=== PATIENT | female | born 1980 | race Hispanic/Latino ===

== ENCOUNTER 2017-08-31 09:40 | Emergency (ER) | payer SELFPAY ==
[~2017-08-31] VITALS: Ht 152.4 cm; Wt 66.2 kg
--- OUTSIDE RECORDS SUMMARY | 2017-08-31 09:43 | XMS REPORT | Clinical Summary ---
Author Author MARY [facility] Address Unknown Phone Unavailable Care Team Providers Care Plant Sprayer Name Role Phone PCP Unavailable Allergies Active Allergy Reactions Severity Noted Date Comments Morphine 09/27/2016 "Uncontrollable" Codeine Rash Low 09/27/2016 Current Medications Prescription Sig. Disp. Refills Start End Date Status Date VIT#96/FERROUS Take 1 tablet by mouth Active FUM/FA ( VITAMIN daily. W/IRON-FOLATE) 27 mg iron- 800 mcg Tab fluticasone-salmeterol Inhale 1 puff by mouth Active (ADVAIR) 100-50 mcg/dose via inhaler every 12 diskus inhaler (twelve) hours. cetirizine (ZYRTEC) 10 MG Take 10 mg by mouth Active tablet daily. CICLESONIDE (ZETONNA by Nasal route. Active NASAL) azithromycin (ZITHROMAX) Take 5 mLs (100 mg total) 15 mL 0 09/28/19 10/03/19 100 mg/5 mL suspension by mouth daily for 5 17 17 days. Active Problems Currently Estimated Date of Delivery Comments Yes 02/06/2017 No additional problems on file Encounters Date Type Specialty Care Team Description 09/27/2016 Emergency Emergency Medicine Simon Chery MD Coughing ( Primary Dx);Dyspnea and respiratory abnormality;Other chest pain;21 weeks gestation of after 08/30/2016 Social History Tobacco Use Types Packs/Day Years Used Date Never Smoker Alcohol Use Drinks/Week oz/Week Comments No Currently Estimated Date of Delivery Comments Yes 02/06/2017 Sex Assigned at Date Recorded Not on file Last Filed Vital Signs Vital Sign Reading Time Taken Blood Pressure 112/69 09/27/2016 9:35 AM CDT Pulse 100 09/27/2016 9:35 AM CDT Temperature 36.6 C (97.9 F) 09/27/2016 8:10 AM CDT Respiratory Rate 20 09/27/2016 8:10 AM CDT Oxygen Saturation 97% 09/27/2016 9:35 AM CDT Inhaled Oxygen - - Concentration Weight 61.7 kg (136 lb) 09/27/2016 8:10 AM CDT Height 152.4 cm (5') 09/27/2016 8:10 AM CDT Body Mass Index 26.56 09/27/2016 8:10 AM CDT Plan of Treatment Not on file Results * XR chest PA or AP 1 view in dept (09/27/2016 8:46 AM) Specimen Performing Laboratory GE RIS Narrative FINAL REPORT CLINICAL HISTORY: COUGH CHEST PRESSURE WHEEZING TECHNIQUE: 1 view of the chest COMPARISON: 11/02/2006 IMPRESSION: There are no focal infiltrates or pleural effusions. The cardiomediastinal silhouette is within normal limits for size. The visualized bones are intact. Signed: Hansel Guidry MD Report Verified Date/Time:09/27/2016 09:16:59 Reading Location: [facility] Radiology Reading Room Procedure Note Interface, External Ris In - 09/27/2016 9:19 AM CDT FINAL REPORT CLINICAL HISTORY: COUGH CHEST PRESSURE WHEEZING TECHNIQUE: 1 view of the chest COMPARISON: 11/02/2006 IMPRESSION: There are no focal infiltrates or pleural effusions. The cardiomediastinal silhouette is within normal limits for size. The visualized bones are intact. Signed: Hansel Guidry MD Report Verified Date/Time: 09/27/2016 09:16:59 Reading Location: [facility] Radiology Reading Room after 08/30/2016
--- OUTSIDE RECORDS SUMMARY | 2017-08-31 09:43 | XMS REPORT ---
Author [facility] Address Unknown Phone Unavailable Care Team Providers Care Careers Adviser Name Role Phone Unavailable Unavailable Problems This patient has no known problems. Allergies, Adverse Reactions, Alerts This patient has no known allergies or adverse reactions. Medications This patient has no known medications. Encounters Start Date/Time End Date/Time Encounter Type Admission Type Attending [facility] Care Department Encounter ID 2017-10-18 00:00:00 2017-10-18 00:00:00 Outpatient [facility] [id number] 2017-10-18 00:00:00 2017-10-18 00:00:00 Outpatient [facility] [id number] 2017-08-24 00:00:00 2017-08-24 00:00:00 Outpatient [facility] [id number] 2017-07-25 09:37:45 2017-07-25 09:37:45 Outpatient [facility] [id number] 2017-06-30 00:00:00 2017-06-30 00:00:00 Outpatient [facility] [id number] 2017-06-17 10:19:36 2017-06-17 10:19:36 Outpatient [facility] [id number] 2017-05-17 09:57:51 2017-05-17 09:57:51 Outpatient [facility] [id number] 2017-03-31 15:07:35 2017-03-31 15:07:35 Outpatient [facility] [id number] 2017-03-21 14:06:47 2017-03-21 14:06:47 Outpatient [facility] [id number] 2017-03-21 11:27:59 2017-03-21 11:27:59 Outpatient [facility] [id number] 2017-03-21 10:25:46 2017-03-21 10:25:46 Outpatient [facility] [id number] 2016-11-18 09:13:57 2016-11-18 09:13:57 Outpatient [facility] [id number] 2016-10-19 00:00:00 2016-10-19 00:00:00 Outpatient [facility] [id number] 2016-10-05 00:00:00 2016-10-05 00:00:00 Outpatient [facility] [id number] 2016-09-24 08:37:12 2016-09-24 08:37:12 Outpatient [facility] [id number] 2016-09-23 00:00:00 2016-09-23 00:00:00 Outpatient [facility] [id number] 2016-09-14 10:50:10 2016-09-14 10:50:10 Outpatient [facility] [id number] 2016-09-09 14:50:18 2016-09-09 14:50:18 Outpatient [facility] [id number]
[2017-08-31] MEDS ORDERED: IPRATROPIUM BROMIDE 0.02% 2.5 ML NEB NEB STA (09:55)
[2017-08-31] MEDS ORDERED: ALBUTEROL SULF 0.083% NEB SOLN 3 ML NEB NEB STA (09:55)
[2017-08-31] MEDS ORDERED: DEXAMETHASONE SOD PHOS 10 MG/1 ML VIAL INJ ONE (10:00)
[2017-08-31 10:17] LABS: BASOPHILS % 0.3 % (0.0-1.0); EOSINOPHILS # (AUTO) 0.2 (0.0-0.4); EOSINOPHILS % 2.1 % (0.0-6.0); HEMATOCRIT 36.7 % (34.2-44.1); HEMOGLOBIN 12.2 g/dL (12.0-16.0); LYMPHOCYTES # (AUTO) 1.3 (1.0-3.2); LYMPHOCYTES % 13.3 % (18.0-39.1); MEAN CORPUSCULAR HEMOGLOBIN 27.8 pg (28-32); MEAN CORPUSCULAR HGB CONC 33.2 g/dL (31-35); MEAN CORPUSCULAR VOLUME 83.6 fL (81-99); MONOCYTES # (AUTO) 0.7 (0.2-0.8); MONOCYTES % 7.4 % (4.4-11.3); NEUTROPHILS # (AUTO) 7.2 (2.1-6.9); NEUTROPHILS % 76.5 % (38.7-80.0); PLATELET COUNT 489 x10e3/uL (140-360); RED BLOOD COUNT 4.39 x10e6/uL (3.6-5.1); RED CELL DISTRIBUTION WIDTH 13.9 % (11.7-14.4)
[2017-08-31 10:36] LABS: ALANINE AMINOTRANSFERASE 17 IU/L (0-55); ALBUMIN 4.1 g/dL (3.5-5.0); ALKALINE PHOSPHATASE 104 IU/L (40-150); ANION GAP 11.9 mmol/L (8-16); BLOOD UREA NITROGEN 9 mg/dL (7-26); BUN/CREATININE RATIO 13 (6-25); CALCIUM 10.1 mg/dL (8.4-10.2); CARBON DIOXIDE 26 mmol/L (22-29); CHLORIDE 106 mmol/L (98-107); EST GLOMERULAR FILTRATION RATE > 60 ML/MIN (60-); GLUCOSE 94 mg/dL (74-118); POTASSIUM 3.9 mmol/L (3.5-5.1); SODIUM 140 mmol/L (136-145)
[2017-08-31 10:36] LABS: CREATINE KINASE 155 IU/L (29-168)
--- NOTE | 2017-08-31 12:13 | Diagnostic Imaging Report ---
PROCEDURE: Frontal and lateral views of the chest. COMPARISON: None. INDICATIONS: ASTHMA ATTACK FINDINGS: Lines/tubes: None. Lungs: The lungs are well inflated and clear. There is no evidence of pneumonia or pulmonary edema. Pleura: There is no pleural effusion or pneumothorax. Heart and mediastinum: The heart and the mediastinum are normal. Bones: No acute bony abnormality. IMPRESSION: 1. No acute cardiopulmonary disease. Dictated by: Carmelo Iglesias M.D. on 08/31/2017 at 12:15 Electronically approved by: Carmelo Iglseias M.D. on 08/31/2017 at 12:15
== END 2017-08-31 12:40 | disposition home or self-care (01) ==
LOC: ER 09:40
DX: R06.00 Dyspnea, unspecified (principal); J45.30 Mild persistent asthma, uncomplicated
CPT/HCPCS: 36415; 71046; 80053; 82550; 82553; 84484; 84702; 85025; 85379; 93005; 94640; 99284; J1100

== ENCOUNTER 2018-12-11 11:24 | Emergency (ER) | payer OTHER ==
[~2018-12-11] VITALS: Ht 152.4 cm; Wt 66.2 kg
--- OUTSIDE RECORDS SUMMARY | 2018-12-11 11:28 | XMS REPORT | Clinical Summary ---
Author Author [facility] Address Unknown Phone Unavailable Care Team Providers Care Sales Apprentice Name Role Phone Cassia Kwong MD PCP Allergies Comments Active Allergy Reactions Severity Noted Date Codeine Hives Medium 09/13/2018 "get aggresgive." Morphine Other (See Medium 09/13/2018 Comments) Medications End Date Status Medication Sig Dispensed Refills Start Date 09/18/2018 keTOROlac (TORadol) 10 mg Take 1 tablet 20 tablet 0 tablet (10 mg total) 9 by mouth every 6 (six) hours as needed for moderate pain for up to 5 days. 09/18/2018 methylPREDNISolone follow 21 tablet 0 (MEDROL DOSEPAK) 4 mg package 9 tablet directions Active Problems Not on file Encounters Care Team Description Date Type Specialty Trevin Bunn MD Chest pain, unspecified type (Primary Dx) 09/13/2018 Emergency Emergency Medicine after 12/10/2017 Social History Date Tobacco Use Types Packs/Day Years Used Never Assessed Sex Assigned at Date Recorded Not on file Industry Job Start Date Occupation Not on file Not on file Not on file Travel End Travel History Travel Start No recent travel history available. Last Filed Vital Signs Reading Time Taken Comments Vital Sign 113/66 09/13/2018 10:39 PM CDT Blood Pressure 71 09/13/2018 10:39 PM CDT Pulse 36.9 C (98.5 F) 09/13/2018 6:28 PM CDT Temperature 17 09/13/2018 10:39 PM CDT Respiratory Rate 97% 09/13/2018 10:39 PM CDT Oxygen Saturation - - Inhaled Oxygen Concentration 67.6 kg (149 lb) 09/13/2018 6:29 PM CDT Weight 152.4 cm (5') 09/13/2018 6:29 PM CDT Height 29.1 09/13/2018 6:29 PM CDT Body Mass Index Plan of Treatment Health Maintenance Due Date Last Done Comments INFLUENZA VACCINE 11/23/2018 Procedures Comments Procedure Name Priority Date/Time Associated Diagnosis ECG ED PRELIMINARY Routine 09/13/2018 INTERPRETATION 10:10 PM CDT TROPONIN Routine 09/13/2018 6:40 PM CDT ESTIMATED GFR STAT 09/13/2018 6:40 PM CDT HCG QUALITATIVE, SERUM STAT 09/13/2018 SCREEN 6:40 PM CDT PROTHROMBIN TIME WITH INR STAT 09/13/2018 6:40 PM CDT PARTIAL THROMBOPLASTIN STAT 09/13/2018 TIME (PTT) 6:40 PM CDT B NATRIURETIC PEPTIDE STAT 09/13/2018 6:40 PM CDT COMPREHENSIVE METABOLIC STAT 09/13/2018 PANEL 6:40 PM CDT HC COMPLETE BLD COUNT STAT 09/13/2018 W/AUTO DIFF 6:40 PM CDT ECG 12-LEAD STAT 09/13/2018 6:33 PM CDT after 12/10/2017 Results * ECG ED Preliminary Interpretation - Not an Order (09/13/2018 10:10 PM CDT) Narrative Performed At Trevin Bunn MD 09/14/20184:34 AM ECG ED Preliminary Interpretation - Not an Order Performed by: Trevin Bunn MD Authorized by: Trevin Bunn MD ECG reviewed by ED Physician in the absence of a user experience analyst: yes Interpretation: Interpretation: normal Rate: ECG rate:68 ECG rate assessment: normal Rhythm: Rhythm: sinus rhythm Ectopy: Ectopy: none QRS: QRS axis:Normal QRS intervals:Normal Conduction: Conduction: normal ST segments: ST segments:Normal T waves: T waves: normal * Estimated GFR (09/13/2018 6:40 PM CDT) Estimated GFR >=90 mL/min/1.73 m2 [place] Comment: [facility] rpretation G1 >=90 Normal or high G2 60-89Mildly decreased [id number] Mildly to moderately decreased [id number] Moderately to severely decreased G4 15-29Severely decreased G5 <15Kidney failure The eGFR was calculated using the Chronic Kidney Disease Epidemiology Collaboration (CKD-EPI) equation. Interpretation is based on recommendations of the National Kidney Foundation-Kidney Disease Outcomes Quality Initiative (NKF-KDOQI) published in 2014. Specimen Plasma specimen Performing Organization Address [facility] Phone Number [address] [place] [address] PATH[address] * Troponin (09/13/2018 6:40 PM CDT) [facility] Troponin <0.006 0.000 - 0.040 ng/mL [place] Comment: [facility] changed methodology effective: 08/29/2018 at 10:00 am The new method has a 99th percentile cutoff of 0.040 ng/mL Specimen Plasma specimen Performing Organization Address [facility] Phone Number [address] [place] AND [address] * Partial thromboplastin time, activated (09/13/2018 6:40 PM CDT) [facility] PTT 30.5 23.0 - 36.0 sec [place] Comment: [facility] PTT therapeutic range for [facility] unfractionated heparin is 61.0-112.0 seconds which corresponds to Anti-Xa 0.3-0.7 U/ml. Specimen Blood Performing Organization Address [facility] Phone Number [address] [place] * Prothrombin time with INR (09/13/2018 6:40 PM CDT) [facility] Prothrombin 11.8 11.5 - 14.5 sec [facility] INR 0.9 [place] Comment: [facility] [employer] Normalized [facility] Ratio (INR) is a therapeutic monitoring tool for patients who are stable on oral anticoagulant therapy. An INR of 2.0-3.0 is suggested for deep vein thrombosis/pulmonary embolism. Specimen Blood Performing Organization Address City/[facility]/Zipcode Phone Number [address] [place] [address] PATHOLOGY AND GENOMIC MEDICINE [address] [place], [place] [id number] [place] [address] * CBC with platelet and differential (09/13/2018 6:40 PM CDT) WBC 10.49 4.50 - 11.00 k/uL [facility] RBC 3.84 (L) 4.20 - 5.50 m/uL [facility] HGB 10.3 (L) 12.0 - 16.0 g/dL [facility] HCT 33.2 (L) 37.0 - 47.0 % [facility] MCV 86.5 82.0 - 100.0 fL [facility] MCH 26.8 (L) 27.0 - 34.0 pg [facility] MCHC 31.0 31.0 - 37.0 g/dL [facility] RDW - SD 47.9 37.0 - 55.0 fL [facility] MPV 9.5 8.8 - 13.2 fL [facility] Platelet count 424 (H) 150 - 400 k/uL [facility] Nucleated RBC 0.00 /100 WBC [facility] Neutrophils 69.2 (H) 39.0 - 69.0 % [facility] Lymphocytes 19.6 (L) 25.0 - 45.0 % [facility] Monocytes 9.1 0.0 - 10.0 % [facility] Eosinophils 1.4 0.0 - 5.0 % [facility] Basophils 0.2 0.0 - 1.0 % [facility] Specimen Blood Performing Organization Address City/[facility]/Zipcode Phone Number [facility] DE[facility] [address] [place] [phone] PATHOLOGY AND GENOMIC MEDICINE [address] * hCG qualitative, serum screen (09/13/2018 6:40 PM CDT) Pathologist [facility] hCG Negative [facility] Specimen Blood Performing Organization Address City/[facility] Phone Number [facility] DE[facility] [address] [place] [address] PATHOLOGY AND GENOMIC MEDICINE [address] * B natriuretic peptide (09/13/2018 6:40 PM CDT) [facility] BNP 14 0 - 100 pg/mL [facility] Specimen Blood Performing Organization Address City/[facility] Phone Number [facility] [address] [place] [address] PATHOLOGY AND GENOMIC MEDICINE [address] * Comprehensive metabolic panel (09/13/2018 6:40 PM CDT) [facility] Sodium 137 135 - 148 mEq/L [facility] Potassium 4.4 3.5 - 5.0 mEq/L [facility] Chloride 104 98 - 112 mEq/L [facility] CO2 25 24 - 31 mEq/L [facility] Anion gap 8@ANIO 7 - 15 mEq/L [facility] BUN 12 6 - 20 mg/dL [facility] Creatinine 0.60 0.50 - 0.90 mg/dL [facility] Glucose 88 65 - 99 mg/dL [facility] Calcium 9.3 8.3 - 10.2 mg/dL [facility] Protein 7.7 6.3 - 8.3 g/dL [place] Comment: [facility] 4.6-7.0 g/dL 1 week 4.4-7.6 g/dL 7 months-1year 5.1-7.3 g/dL 1-2 years5.6-7 .5 g/dL >3 years6.0-8 .0 g/dL 18-150 6.3-8.3 g/dL Albumin 4.2 3.5 - 5.0 g/dL [facility] A/G ratio 1.2 0.7 - 3.8 [facility] Alkaline 110 (H) 35 - 104 U/L [place] phosphatase [facility] AST 13 10 - 35 U/L [facility] ALT 9 5 - 50 U/L [facility] Total bilirubin <0.2 0.0 - 1.2 mg/dL [facility] Specimen Plasma specimen Performing Organization Address City/[facility] Phone Number [facility] [place] [id number] [place] [address] [place] [address] PATHOLOGY AND GENOMIC MEDICINE [address] [place] [address] [facility] * ECG 12 lead (09/13/2018 6:33 PM CDT) Ventricular 68 [facility] rate Atrial rate 68 [facility] [place] interval 132 [facility] QRSD interval 76 [facility] QT interval 380 [facility] QTC interval 404 [facility] P axis 1 16 [facility] QRS axis 1 10 [facility] T wave axis 8 [facility] EKG impression Normal sinus rhythm-Normal [facility] ECG-No previous ECGs available- Specimen Narrative Performed At Performing Organization Address City/[facility] Phone Number [facility] MUSE [address] [place] [address] after 12/10/2017 Insurance Type Payer Benefit Subscriber ID Effective Phone Address Plan / Dates Group O [facility] MEDICAID [facility] xxxxxxxxx [id number] [facility] mandeep [facility] Advance Directives For more information, please contact: [phone] Patient Trapper Bird Explanation Type Date Recorded Advance Directives, 09/13/2018 6:24 PM Living Will and Medical Power of Business Center Representative
--- OUTSIDE RECORDS SUMMARY | 2018-12-11 11:28 | XMS REPORT | Clinical Summary ---
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 Name Role Phone Darci Figueroa MD PCP Allergies Comments Active Allergy Reactions Severity Noted Date Black Pepper Anaphylaxis, 10/29/2015 Itching Capsaicin Anaphylaxis 10/29/2015 Codeine 11/02/2014 Lorna Angioedema 10/29/2015 Morphine Other 03/04/2015 Paprika Hives, 10/29/2015 Itching disoriented Zafirlukast Cough, 06/05/2015 Anxiety Medications End Date Status Medication Sig Dispensed Refills Start Date Active calcipotriene (DOVONEX) Apply to 60 g 1 0.005 % topical affected area 6 creamIndications: Rash 2 times daily Active cetirizine (ZYRTEC) 10 mg Take 1 tablet 30 tablet 3 tabletIndications: Nose by mouth 7 congestion daily. Active albuterol (PROAIR HFA) 90 Inhale 2 20.1 g 3 mcg/actuation Puffs by 7 inhalerIndications: mouth 4 times Moderate persistent daily as asthma without needed for complication, Cough, Wheezing. Wheeze, Chest tightness Active PNV95/IRON FUM/FOLIC ACID Take by 0 ( OR) mouth. Active albuterol (VENTOLIN Inhale 2 6.7 g 3 HFA,PROVENTIL HFA,PROAIR Puffs by 7 HFA) 90 mcg/actuation mouth 4 times inhalerIndications: daily as Moderate persistent needed for asthma without Wheezing. complication Active fluticasone-salmeterol Inhale 1 Puff 180 Each 3 (ADVAIR DISKUS) 500-50 by mouth 2 7 mcg/dose diskus times daily. inhalerIndications: Moderate persistent asthma without complication Active cyclobenzaprine Take 1 tablet 30 tablet 2 (FLEXERIL) 10 mg by mouth 8 tabletIndications: Spasm nightly at of muscle, Upper back bedtime as pain, Cervical needed for spondylolysis Muscle Spasms. Active ibuprofen (MOTRIN) 800 mg Take 1 tablet 40 tablet 2 tabletIndications: Spasm by mouth 8 of muscle, Upper back every 8 hours pain, Cervical as needed for spondylolysis Pain. Active fluticasone-vilanterol Inhale by 30 Each 3 (BREO ELLIPTA) 200-25 mouth. 8 mcg/dose DsDvIndications: Moderate persistent asthmatic bronchitis with acute exacerbation, Severe persistent extrinsic asthma with acute exacerbation Active Levocetirizine (XYZAL) 5 Take 1 tablet 90 tablet 2 mg tabletIndications: by mouth 8 Seasonal allergic every rhinitis, unspecified evening. trigger Active cetirizine (ZYRTEC) 10 mg Take 1 tablet 90 tablet 3 tabletIndications: by mouth 8 Non-seasonal allergic daily. rhinitis due to fungal spores Active fluticasone (FLONASE) 50 Use 2 [place] 16 g 5 mcg/actuation nasal in each 8 sprayIndications: Acute nostril nonseasonal allergic daily.. rhinitis due to pollen Active pregabalin (LYRICA) 200 Take 200 mg 0 mg capsule by mouth 2 times daily. Active naproxen (NAPROSYN) 500 Take 1 tablet 20 tablet 0 mg tabletIndications: by mouth 2 9 Pain times daily as needed for Pain (with food). Active ARIPiprazole (ABILIFY) 5 Take 1 tablet 30 tablet 1 mg tabletIndications: by mouth 9 Moderate episode of daily. recurrent major depressive disorder Active DULoxetine (CYMBALTA) 30 Take 1 30 capsule 1 mg delayed release capsule by 9 capsuleIndications: mouth daily Moderate episode of For recurrent major depression, depressive disorder fibromyalgia. Active propranolol (INDERAL) 10 Take 1 tablet 60 tablet 1 mg tabletIndications: by mouth 3 9 Moderate episode of times daily. recurrent major depressive disorder 01/10/2018 Discontinued cetirizine (ZYRTEC) 10 mg Take 1 tablet 90 tablet 3 tabletIndications: by mouth 7 Non-seasonal allergic daily. rhinitis due to fungal spores 02/10/2018 Discontinued ciclesonide (ZETONNA) 37 Use 1 [place] 18.3 g 5 mcg/actuation nasal HFA in each 7 inhalerIndications: Acute nostril nonseasonal allergic daily. rhinitis due to pollen 12/16/2017 Discontinued hydrOXYzine (ATARAX) 50 Take 1 tablet 30 tablet 0 mg tabletIndications: by mouth at 8 Dysthymia, Other bedtime depression nightly. 12/16/2017 Discontinued citalopram (CELEXA) 20 mg Take 1 tablet 30 tablet 0 tabletIndications: by mouth 8 Dysthymia, Other daily. depression 12/23/2017 Discontinued sertraline (ZOLOFT) 50 mg Take 1/2 tab 14 tablet 0 tabletIndications: by mouth 8 Moderate episode of daily for one recurrent major week; then depressive disorder increase to 1 full tab daily.. 12/23/2017 Discontinued traZODone (DESYREL) 100 Take 1/2 to 1 14 tablet 0 mg tabletIndications: tab by mouth 8 Moderate episode of at bedtime recurrent major PRN insomnia. depressive disorder 01/13/2018 Discontinued traZODone (DESYREL) 100 Take 1/2 to 1 21 tablet 0 mg tabletIndications: tab by mouth 8 Moderate episode of at bedtime recurrent major PRN insomnia. depressive disorder 01/13/2018 Discontinued sertraline (ZOLOFT) 50 mg Take 1 tablet 21 tablet 0 tabletIndications: by mouth 8 Moderate episode of daily. recurrent major depressive disorder 01/25/2018 Discontinued sertraline (ZOLOFT) 50 mg Take 1 tablet 30 tablet 0 tabletIndications: by mouth 8 Moderate episode of daily. recurrent major depressive disorder 01/25/2018 Discontinued traZODone (DESYREL) 100 Take 1/2 to 1 30 tablet 0 mg tabletIndications: tablet by 8 Moderate episode of mouth at recurrent major bedtime as depressive disorder needed for insomnia. 01/25/2018 Discontinued ARIPiprazole (ABILIFY) 5 Take 1 tablet 30 tablet 1 mg tabletIndications: by mouth 8 Moderate episode of daily. recurrent major depressive disorder 02/28/2018 Discontinued ARIPiprazole (ABILIFY) 5 Take 1 tablet 30 tablet 0 mg tabletIndications: by mouth 8 Moderate episode of daily. recurrent major depressive disorder 02/28/2018 Discontinued sertraline (ZOLOFT) 50 mg Take 1 tablet 30 tablet 0 tabletIndications: by mouth 8 Moderate episode of daily. recurrent major depressive disorder 03/31/2018 Discontinued traZODone (DESYREL) 100 Take 1/2 to 1 30 tablet 0 mg tabletIndications: tablet by 8 Moderate episode of mouth at recurrent major bedtime as depressive disorder needed for insomnia. 02/14/2018 Discontinued ciclesonide (ZETONNA) 37 Use 1 [place] 18.3 g 5 mcg/actuation nasal HFA in each 8 inhalerIndications: Acute nostril nonseasonal allergic daily. rhinitis due to pollen 02/15/2018 Discontinued ciclesonide (ZETONNA) 37 Use 1 [place] 18.3 g 5 mcg/actuation nasal HFA in each 8 inhalerIndications: Acute nostril nonseasonal allergic daily. rhinitis due to pollen 03/31/2018 Discontinued ARIPiprazole (ABILIFY) 5 Take 1 tablet 30 tablet 2 mg tabletIndications: by mouth 8 Moderate episode of daily. recurrent major depressive disorder 03/31/2018 Discontinued sertraline (ZOLOFT) 50 mg Take 1 tablet 30 tablet 2 tabletIndications: by mouth 8 Moderate episode of daily. recurrent major depressive disorder 07/21/2018 Discontinued ARIPiprazole (ABILIFY) 5 Take 1 tablet 30 tablet 2 mg tabletIndications: by mouth 8 Moderate episode of daily. recurrent major depressive disorder 07/21/2018 Discontinued traZODone (DESYREL) 100 Take 1/2 to 1 30 tablet 0 mg tabletIndications: tablet by 8 Moderate episode of mouth at recurrent major bedtime as depressive disorder needed for insomnia. 11/17/2018 Discontinued DULoxetine (CYMBALTA) 30 Take 1 30 capsule 1 mg delayed release capsule by 8 capsuleIndications: mouth daily Moderate episode of For recurrent major depression, depressive disorder fibromyalgia. 10/13/2018 Discontinued traZODone (DESYREL) 100 Take 1/2 to 1 30 tablet 1 mg tabletIndications: tablet by 9 Moderate episode of mouth at recurrent major bedtime as depressive disorder needed for insomnia. 10/13/2018 Discontinued ARIPiprazole (ABILIFY) 5 Take 1 tablet 30 tablet 1 201 mg tabletIndications: by mouth 9 Moderate episode of daily. recurrent major depressive disorder 11/17/2018 Discontinued ARIPiprazole (ABILIFY) 5 Take 1 tablet 30 tablet 1 201 mg tabletIndications: by mouth 9 Moderate episode of daily. recurrent major depressive disorder 11/17/2018 Discontinued propranolol (INDERAL) 10 Take 1 tablet 60 tablet 1 mg tabletIndications: by mouth 3 9 Moderate episode of times daily. recurrent major depressive disorder 10/22/2018 Discontinued traMADol (ULTRAM) 50 mg Take 1 tablet 30 tablet 0 tabletIndications: Pain by mouth 9 every 6 hours as needed for Pain. Active Problems Problem Noted Date Alcohol use disorder, mild, in sustained remission 01/25/2018 Alcohol use disorder 10/06/2017 19 weeks gestation of 09/14/2016 Overview: Estimated Date of Delivery: 02/06/17 BY 16w Labs: Type/Scr Early RPR Rubella HBsAG Early HIV Sickle Scr Early H/H Early Plt UCx O +/- NR Non-immune Neg Neg 11.7/35.9 390 GC/Chl Pap Quad Scr 1 hr GTT 3rd RPR 3rd HIV 3rd H/H 3rd Plt GBS Neg/Neg ASCUS HR HPV + Neg NIPT neg TDaP: U/S: Dating U/S: 16w Anatomy U/S: 09/24/16 Plan: [ ] Glucola @ 24-28 weeks [ ] TDap and RPR @ 28-32 weeks [ ] 3rd TM counseling [ ] 3rd Trimester HIV, CBC, GBS LGSIL (low grade squamous intraepithelial dysplasia) 08/11/2016 Overview: HR HPV positive. Referred for colpo 08/24/2016 Per patient had colpo on 08/23 @ [facility] and no biopsies were taken. Was told it was "normal". Will need pp pap smear UTI in , antepartum 08/10/2016 Overview: 08/11/2016 treated. SUSSY next visit 08/24/2016 Still on antibiotics, UCx at next clinic visit 09/14/2016 SUSSY neg Elderly multigravida 07/29/2016 Overview: S/p genetic counseling. Declined amnio but desires NIPT once approved with Medicaid 08/24/2016 NIPT performed today, results pending 09/14/2016 NIPT neg Rubella non-immune status, antepartum 07/29/2016 Overview: MMR Asthma 07/29/2016 Overview: 07/29/2016 Advair twice daily and Abuterol prn. F/U with closely with pulmonology 08/11/2016 well controlled. Referred to [facility] for consultation 08/24/2016 Not compliant with treatment. Will restart advair twice daily. Has pulm appt 09/09/16 09/14/2016 Pulm appt 09/09: patient to continue advair twice daily. Also prescribed amoxicillin for pulmonary infection. Patient to continue cetirizine and zetonna for allergic rhinitis Dysthymia Depression Pain Encounters Care Team Description Date Type Specialty Ines Ospina MDD (major depressive disorder), recurrent episode, moderate (Primary Dx); Alcohol use disorder, moderate, dependence; Cocaine use disorder, mild, in early remission; History of marijuana use; Anxiety disorder, unspecified type 11/20/2018 Office Visit Psychology Rene Albetrs MD Moderate episode of recurrent major depressive disorder 11/17/2018 Office Visit Psychiatry Ines Ospina MDD (major depressive disorder), recurrent episode, moderate (Primary Dx); Alcohol use disorder, moderate, dependence; Cocaine use disorder, mild, in early remission; History of marijuana use; Anxiety disorder, unspecified type 10/30/2018 Office Visit Psychology 10/30/2018 Travel Lj Chaney, Physician Pain (Primary Dx) 10/22/2018 Emergency Emergency Medicine 10/22/2018 Travel Ines Ospina MDD (major depressive disorder), recurrent episode, moderate (Primary Dx); Alcohol use disorder, moderate, dependence; Cocaine use disorder, mild, in early remission; History of marijuana use 10/16/2018 Office Visit Psychology Rene Alberts MD Moderate episode of recurrent major depressive disorder 10/13/2018 Office Visit Psychiatry Ines Ospina MDD (major depressive disorder), recurrent episode, moderate (Primary Dx); Alcohol use disorder, moderate, dependence; History of cocaine abuse; History of marijuana use 10/09/2018 Office Visit Psychology 10/09/2018 Travel Ines Ospina MDD (major depressive disorder), recurrent episode, moderate (Primary Dx); Alcohol use disorder, moderate, dependence; History of cocaine use; History of marijuana use 10/02/2018 Office Visit Psychology Darci Figueroa III, MD Ines Ospina MDD (major depressive disorder), recurrent episode, moderate (Primary Dx); Alcohol use disorder, moderate, dependence; Cocaine use disorder, mild, in early remission, abuse; History of marijuana use 09/25/2018 Office Visit Psychology 09/25/2018 Travel Rene Alberts MD Moderate episode of recurrent major depressive disorder 09/16/2018 Refill Psychiatry Rene Alberts MD Moderate episode of recurrent major depressive disorder 07/21/2018 Office Visit Psychiatry 07/21/2018 Travel Buck Dominguezzmine Dysthymic disorder (Primary Dx) 04/10/2018 Office Visit Psychology 04/10/2018 Travel Rene Alberts MD Moderate episode of recurrent major depressive disorder (Primary Dx) 03/31/2018 Office Visit Psychiatry 03/31/2018 Travel Buck Dominguezzmine Dysthymia (Primary Dx) 03/27/2018 Office Visit Psychology 03/27/2018 Travel Darci Figueroa III, MD Moderate episode of recurrent major depressive disorder 02/28/2018 Refill [facility] Regi Dominguez Depression, unspecified depression type (Primary Dx); Alcohol use disorder, mild, in sustained remission 02/22/2018 Office Visit Psychology Darci Alfredo MD Acute nonseasonal allergic rhinitis due to pollen 02/15/2018 Refill Pulmonology Darci Alfredo MD Acute nonseasonal allergic rhinitis due to pollen 02/14/2018 Refill Pulmonology Darci Alfredo MD Acute nonseasonal allergic rhinitis due to pollen 02/10/2018 Refill Pulmonology Regi Dominguez Dysthymia (Primary Dx); Alcohol use disorder, mild, in sustained remission 02/08/2018 Office Visit Psychology Rene Alberts MD Depression, unspecified depression type (Primary Dx) 01/27/2018 Office Visit Psychiatry Regi Dominguez Dysthymia (Primary Dx); Alcohol use disorder, mild, in sustained remission 01/25/2018 Office Visit Psychology Rene Alberts MD Moderate episode of recurrent major depressive disorder 01/25/2018 Refill Psychiatry Rene Alberts MD Moderate episode of recurrent major depressive disorder 01/19/2018 Refill Psychiatry Darci Figueroa III, MD 01/13/2018 Hospital Lab Encounter Rene Alberts MD Moderate episode of recurrent major depressive disorder (Primary Dx) 01/13/2018 Office Visit Psychiatry Rene Alberts MD Moderate episode of recurrent major depressive disorder 01/13/2018 Orders Only Psychiatry Regi Dominguez Dysthymia (Primary Dx); Alcohol use disorder 01/11/2018 Office Visit Psychology Darci Alfredo MD Non-seasonal allergic rhinitis due to fungal spores 01/10/2018 Refill Pulmonology Regi Dominguez Dysthymia (Primary Dx); Alcohol use disorder 12/23/2017 Office Visit Psychology Rene Alberts MD Moderate episode of recurrent major depressive disorder 12/23/2017 Office Visit Psychiatry Darci Figueroa III, MD Moderate episode of recurrent major depressive disorder 12/16/2017 Hospital Lab Encounter Rene Alberts MD Moderate episode of recurrent major depressive disorder (Primary Dx) 12/16/2017 Office Visit Psychiatry after 12/10/2017 Immunizations Name Administration Dates Next Due Ceftriazone 1gm 03/04/2015 Injection Influenza Vaccine 03/17/2016, 04/04/2015 Influenza Vaccine, 03/21/2017 Seasonal, Injectable Pneumococcal 13-valent 06/05/2015 conj 0.5 mL injection Tdap (Tetanus Toxoid, 11/18/2016 Reduced Diphtheria Toxoid And Acellular Pertussis, Absorbed) Triamcinolone 40mg/ml Inj 09/09/2016, 09/18/2015 Family History Medical History Relation Name Comments Cancer Maternal colon Grandfather Heart Maternal Grandfather Arthritis Maternal Grandmother Hypertension Maternal Grandmother Diabetes Paternal Grandmother Relation Name Status Comments Brother Alive Brother Alive Father Alive Maternal Grandfather colon ca (Age 75) Maternal Grandmother Alive Mother Alive Paternal Grandfather kidney failure (Age 86) Paternal Grandmother DM complications (Age 64) Social History Date Tobacco Use Types Packs/Day Years Used Never Smoker Smokeless Tobacco: Never Used Tobacco Cessation: Counseling Given: No Drinks/Week oz/Week Comments Alcohol Use 0 Standard drinks or equivalent 0.0 occasionally but not while Yes Food Insecurity Answer Date Recorded Within the past 12 months, you worried that your Never true 11/24/2017 food would run out before you got money to buy more. Within the past 12 months, the food you bought Never true 11/24/2017 just didn't last and you didn't have money to get more. Sex Assigned at Date Recorded Not on file Industry Job Start Date Occupation Not on file Not on file Not on file Travel End Travel History Travel Start No recent travel history available. Last Filed Vital Signs Reading Time Taken Comments Vital Sign 120/78 11/17/2018 8:54 AM CDT Blood Pressure 75 11/17/2018 8:54 AM CDT Pulse 36.9 C (98.5 F) 11/17/2018 8:54 AM CDT Temperature 18 11/17/2018 8:54 AM CDT Respiratory Rate 97% 11/17/2018 8:54 AM CDT Oxygen Saturation - - Inhaled Oxygen Concentration 70.3 kg (155 lb) 11/17/2018 8:54 AM CDT Weight 152.4 cm (5') 11/17/2018 8:54 AM CDT Height 30.27 11/17/2018 8:54 AM CDT Body Mass Index Plan of Treatment Care Team Description Date Type Specialty Ines Ospina RESCHEDULED FROM CALL IN 12/18/2018 Office Visit Psychology Rene Alberts MD [address] [place] [address] [phone] return 12/29/2018 Office Visit Psychiatry Health Maintenance Due Date Last Done Comments Cervical Cancer Scrn (3 07/24/2017 07/24/2014 (Previously completed - Yrs) External) Goals Goal Patient Associated Recent Progress Patient-Stat Author Goal Type Problems ed? Eat Healthy Lifestyle No Jackie Cheung Procedures Comments Procedure Name Priority Date/Time Associated Diagnosis URINALYSIS STAT 10/22/2018 5:51 AM CDT CBC STAT 10/22/2018 5:51 AM CDT TEST STAT 10/22/2018 5:51 AM CDT URINALYSIS STAT 10/22/2018 5:51 AM CDT CBC/DIFF STAT 10/22/2018 5:51 AM CDT BMP POC Routine 10/22/2018 5:40 AM CDT FREE T4 Routine 01/13/2018 Moderate episode of 11:34 AM CDT recurrent major depressive disorder THYROID STIMULATING Routine 01/13/2018 Moderate episode of HORMONE (TSH) 11:34 AM CDT recurrent major depressive disorder GAMMA GLUTAMYL Routine 12/16/2017 Moderate episode of TRANSFERASE (GGT) 9:56 AM CDT recurrent major depressive disorder COMPREHENSIVE METABOLIC Routine 12/16/2017 Moderate episode of PANEL 9:56 AM CDT recurrent major depressive disorder THYROID STIMULATING Routine 12/16/2017 Moderate episode of HORMONE (TSH) 9:56 AM CDT recurrent major depressive disorder after 12/10/2017 Results * CBC (10/22/2018 5:51 AM CDT) WBC 10.4 4.5 - 11.0 K/uL [facility] RBC 4.20 4.20 - 5.40 M/uL [facility] Hemoglobin 11.0 (L) 12.0 - 16.0 g/dL [facility] Hematocrit 35.1 (L) 37.0 - 47.0 % [facility] MCV 83.6 82.0 - 92.0 fL [facility] MCH 26.2 (L) 27.0 - 32.0 pg [facility] MCHC 31.3 (L) 32.0 - 36.0 g/dL [facility] RDW 50.9 (H) 36.4 - 46.3 fL [facility] Platelet 436 (H) 150 - 400 K/uL [facility] Mean Platelet 9.8 9.4 - 12.4 fL [facility] Percent NRBC 0.0 % [facility] Neutrophil 67.2 34.0 - 70.0 % [facility] Lymphocyte 23.3 20.0 - 50.0 % [facility] Monocyte 7.7 5.0 - 12.0 % [facility] Eosinophil 0.6 (L) 0.7 - 5.0 % [facility] Basophil 0.2 0.1 - 1.2 % [facility] Pct Immat Gran 1.0 (H) 0.0 - 0.5 % [facility] Neutrophil, Abs 6.97 (H) 1.56 - 6.13 K/uL [facility] Lymphocyte, Abs 2.41 1.18 - 3.74 K/uL [facility] Monocyte, Abs 0.80 (H) 0.24 - 0.36 K/uL [facility] Eosinophil, Abs 0.06 0.04 - 0.36 K/uL [facility] Basophil, Abs 0.02 0.01 - 0.08 K/uL [facility] Absol Immat 0.10 (H) 0.00 - 0.03 K/uL [facility] Absolute 0.00 K/uL [facility] Specimen Blood Performing Organization Address [facility] [place] [facility] [address] [place] [address] * URINALYSIS (10/22/2018 5:51 AM CDT) Color Straw Colorless, Straw, [facility] Clarity Clear Clear [facility] Spec [place], 1.009 1.001 - 1.035 [facility] pH, Ur 6.0 5.0 - 8.0 [facility] Protein, Ur Negative Negative mg/dL [facility] Glucose, Ur Negative Negative mg/dL [facility] Ketone, Ur Negative Negative mg/dL [facility] Bilirubin, Ur Negative Negative mg/dL [facility] Nitrite, Ur Negative Negative [facility] Leukocyte Negative Negative mg/dL [facility] Blood, Ur 1+ (A) Negative mg/dL [facility] RBC 1 0 - 4 /HPF [facility] WBC 4 0 - 5 /HPF [facility] Epithelial Cell 2 (H) <=1 /HPF [facility] Urobilinogen, <1.0 <1.0 EU/dL [facility] Specimen Urine Performing Organization Address [facility] Phone Number [facility] [address] [place] [address] * TEST (10/22/2018 5:51 AM CDT) Negative Negative [facility] Specimen Urine Performing Organization Address [facility] Phone Number [facility] [address] [place] [address] * BMP POC (10/22/2018 5:40 AM CDT) Sodium POC 141 136 - 145 mmol/L [facility] Potassium POC 4.2 3.5 - 5.1 mmol/L [facility] Chloride POC 104 98 - 107 mmol/L [facility] TCO2 POC 27 21 - 32 mmol/L [facility] Urea Nitrogen 9 7 - 18 mg/dL [facility] Creatinine POC 1.0 0.6 - 1.3 mg/dL [facility] Glucose POC 107 (H) 74 - 106 mg/dL [facility] Ionized Calcium 1.12 (L) 1.15 - 1.29 mmol/L [facility] GFR, Estimated 73 (L) >=90 mL/min/1.73 m2 [facility] Hemoglobin POC 12.2 12 - 16 g/dL [facility] Hematocrit POC 36.0 (L) 37.0 - 47.0 % [facility] Specimen Blood, venous Performing Organization Address [facility] Phone Number [facility] [address] [place] [address] * TSH (01/13/2018 11:34 AM CDT) Only the most recent of 2 results within the time period is included. Pathologist [facility] TSH 1.18 0.57 - 3.74 uIU/mL [facility] 1 Specimen Blood Performing Organization Address [facility] Phone Number [facility] * FREE T4 (01/13/2018 11:34 AM CDT) Pathologist [facility] Free T4 0.81 0.61 - 1.18 ng/dl [facility] Comment: 1 females: 1st Trimester-0.52-1.10 ng/dL 2nd Trimester=0.45-0.99 ng/dL 3rd Trimester=0.48-0.95 ng/dL Specimen Blood Performing Organization Address [facility] [place] Number [facility] 1 * COMPREHENSIVE METABOLIC PANEL(DBIL NOT INCLUDED) (12/16/2017 9:56 AM CDT) Albumin 4.7 3.7 - 5.3 g/dL [facility] 1 Calcium 10.0 8.6 - 10.3 mg/dL [facility] 1 CO2 31 21 - 31 mmol/L [facility] 1 Chloride 102 98 - 107 mmol/L [facility] 1 Creatinine 0.70 0.6 - 1.2 mg/dL [facility] 1 Glucose 88 70 - 110 mg/dL [facility] 1 Alkaline 100 34 - 104 U/L [facility] Phosphatase, S 1 Potassium 4.0 3.5 - 5.1 mmol/L [facility] 1 Sodium 143 136 - 145 mmol/L [facility] 1 ALT 12 7 - 52 U/L [facility] 1 AST (SGOT) 13 13 - 39 U/L [facility] 1 BUN 13 7 - 25 mg/dL [facility] 1 Bilirubin, 0.4 0.2 - 1.2 mg/dL [facility] Total 1 Protein, Total, 7.7 6.0 - 8.3 g/dL [facility] Serum 1 GFR, Estimated >60 mL/min/1.73 m2 [facility] 1 eGFR If Africn >60 mL/min/1.73 m2 [facility] Am 1 Anion Gap 10 [facility] 1 Specimen Blood Performing Organization Address City/[facility]/Zipcode Phone Number [facility] 1 * GGT (12/16/2017 9:56 AM CDT) GGT 14 9 - 64 U/L [facility] 1 Specimen Blood Performing Organization Address City/State/Zipcode Phone Number [facility] 1 after 12/10/2017 Insurance Type Payer Benefit Subscriber ID Effective Phone Address Plan / Dates Group PROJECT REACH PROJECT xxxxxxxxxx 2017- [facility] xxxxxxxxx 2018- [phone] COMMUNITY Present [id number] [facility] [id number]
--- OUTSIDE RECORDS SUMMARY | 2018-12-11 11:29 | XMS REPORT | Clinical Summary ---
Author Author [facility] Address Unknown Phone Unavailable Care Team Providers Care Telecommunications Field Technician Name Role Phone Sharpless PCP Unavailable Allergies Comments Active Allergy Reactions Severity Noted Date Codeine Rash Low 09/27/2016 "Uncontrollable" Morphine 09/27/2016 Medications End Date Status Medication Sig Dispensed Refills Start Date Active VIT#96/FERROUS Take 1 tablet 0 FUM/FA ( VITAMIN by mouth W/IRON-FOLATE) 27 mg daily. iron- 800 mcg Tab Active fluticasone-salmeterol Inhale 1 puff 0 (ADVAIR) 100-50 mcg/dose by mouth via diskus inhaler inhaler every 12 (twelve) hours. Active cetirizine (ZYRTEC) 10 MG Take 10 mg by 0 tablet mouth daily. Active CICLESONIDE (ZETONNA by Nasal 0 NASAL) route. Active Problems Estimated Date of Delivery Comments Yes 02/06/2017 No additional problems on file Social History Date Tobacco Use Types Packs/Day Years Used Never Smoker Alcohol Use Drinks/Week oz/Week Comments No Estimated Date of Delivery Comments Yes 02/06/2017 Sex Assigned at Date Recorded Not on file Industry Job Start Date Occupation Not on file Not on file Not on file Travel End Travel History Travel Start No recent travel history available. Last Filed Vital Signs Not on file Plan of Treatment Not on file Results Not on fileafter 12/10/2017 Insurance Payer Benefit Subscriber ID Type Phone Address Plan / Group MEDICAID - MEDICAID [facility] xxxxxxxxx Medicaid CARE COMM STAR Contracted PLAN
--- NOTE | 2018-12-11 11:44 | NUR ---
seen in triage by PHOTOGRAPHIC PRINTER
== END 2018-12-11 11:45 | disposition home or self-care (01) ==
LOC: ER 11:24
DX: Z76.0 Encounter for issue of repeat prescription (principal); M79.7 Fibromyalgia
CPT/HCPCS: 99283

== ENCOUNTER → 2019-05-18 | Day surgery (SDC) | payer OTHER ==
[~2019-05-18] MED LIST: ABILIFY5 MG PO; BENTYL PO; CYMBALTA60 MG PO; FENTANYL CITRATE/PF 100MCG/2 ML INJ ONE; LYRICA225 MG PO; MIDAZOLAM HCL 2 MG/2 ML VIAL ONE; PROPOFOL IV EMULSION 10 MG/ML 20 ML VIAL ONE; SYMBICORT 16010.2 GM INH; TRAZODONE HCL50 MG PO
[2019-05-18 13:48] VITALS: BP 124/87
--- NOTE | 2019-05-18 18:52 | Operative Report ---
DATE OF PROCEDURE: 05/18/2019 SURGEON: Darwin Guy MD PROCEDURE: EGD with biopsies. INDICATIONS FOR EGD: Upper abdominal pain, nausea. MEDICATIONS: The patient was done under MAC, please see anesthesiologist's note. PROCEDURE IN DETAIL: With the patient in the left lateral decubitus position, a flexible fiberoptic Olympus gastroscope was introduced into the esophagus under direct visualization without any difficulty. There was some patchy erythema noted in distal esophagus. The scope was then advanced with ease into the stomach. Mucosa overlying the antrum and the body revealed some patchy intense erythema and rvbw-[id number]-glldlcry edema, and biopsies were obtained and sent to stain for H. pylori. Pylorus was of normal contour and shape, was intubated with ease and the scope was advanced all the way to the second portion of the duodenum. The scope was then withdrawn slowly, mucosa overlying the proximal second portion as well as the duodenal bulb were grossly unremarkable, biopsies were obtained to rule out sprue. The scope was then withdrawn back into the stomach and retroflexed, mucosa overlying the fundus and the cardia appeared to be within normal limits. The scope was then straightened out, it was subsequently withdrawn, and the patient tolerated the procedure well. IMPRESSION: 1. Mild distal esophagitis. 2. Gastritis, biopsied, biopsies sent to stain for Helicobacter pylori. 3. Rule out sprue. PLAN: Follow up histology. Initiate Protonix 40 mg 1 p.o. q.a.m. before meals. Darwin Guy MD [facility] /[id number] cc: Darci Alfredo MD
== END | disposition home or self-care (01) ==
LOC: OR 09:33
PROVIDERS: ATTEND Internal Medicine Gastroenterology
DX: K29.50 Unspecified chronic gastritis without bleeding (principal); K29.80 Duodenitis without bleeding; K20.9 Esophagitis, unspecified; K59.09 Other constipation; K86.1 Other chronic pancreatitis; M79.7 Fibromyalgia; J45.909 Unspecified asthma, uncomplicated; F41.9 Anxiety disorder, unspecified; Z88.6 Allergy status to analgesic agent; Z68.31 Body mass index [BMI] 31.0-31.9, adult; Z80.0 Family history of malignant neoplasm of digestive organs
CPT/HCPCS: 43239; 81025; J2250; J2704; J3010

== ENCOUNTER 2019-11-19 13:04 | Emergency (ER) | payer OTHER ==
[~2019-11-19] VITALS: Ht 152.4 cm; Wt 66.2 kg
[~2019-11-19 13:04] MED LIST changes: -FENTANYL CITRATE/PF 100MCG/2 ML INJ ONE; -MIDAZOLAM HCL 2 MG/2 ML VIAL ONE; -PROPOFOL IV EMULSION 10 MG/ML 20 ML VIAL ONE
[2019-11-19] MEDS ORDERED: KETOROLAC TROMETHAMINE 30 MG/ML VIAL IM STA (13:39)
[2019-11-19] MEDS ORDERED: CYCLOBENZAPRINE HCL 10 MG TAB PO ONE (13:45)
--- NOTE | 2019-11-19 13:58 | Emergency Department Note ---
History of Present Illnes History of Present Illness Chief Complaint: General Medicine Complaints History of Present Illness This is a 38 year old female Chief Complaint Comment BODY ACHES ALL OVER. STATES FLARE UP FOR HER FIBROMYALGIA. PT IN NO NOTED DISTRESS. AAOX4. AMBULATORY. SEEN IN TRIAGE BY . Historian: Patient Arrival Mode: Car Onset (how long ago): day(s) (2) Location: ALL OVER Quality: DULL Radiation: Denies non-radiation, Denies back, Denies neck, Denies extremity, Denies abdomen, Denies periumbilical, Denies flank, Denies proximal, Denies distal, Denies other Severity: mild Onset quality: gradual Timing of current episode: constant Progression: waxing and waning Chronicity: new Context: Denies recent illness, Denies recent surgery, Denies recent immobilization, Denies recent travel, Denies trauma/injury, Denies new medications, Denies hx of DVT/PE, Denies non-compliance w/ medications, Denies other Relieving factors: none Exacerbating factors: none Associated symptoms: Reports denies other symptoms Treatments prior to arrival: none Past Medical/Family History Physician Review I have reviewed the patient's past medical and family history. Any updates have been documented here. Past Medical History Recent Fever: No Clinical Suspicion of Infectio: No New/Unexplained Change in Ment: No Past Medical History: Asthma Other Medical History: PANCREATITIS fibromyaglia Past Surgical History: Cholecysctectomy Social History Smoking Cessation: Never Smoker Alcohol Use: Social Other Last Tetanus: UNKNOWN Review of Systems Review of Systems Constitutional: Reports no symptoms EENTM: Reports no symptoms Cardiovascular: Reports no symptoms Respiratory: Reports no symptoms Gastrointestinal: Reports no symptoms Genitourinary: Reports no symptoms Musculoskeletal: Reports no symptoms Integumentary: Reports no symptoms Neurological: Reports no symptoms Psychological: Reports no symptoms Endocrine: Reports no symptoms Hematological/Lymphatic: Reports no symptoms Physical Exam Related Data Allergies: Coded Allergies: codeine (Verified Allergy, Unknown, HIVES, 05/17/19) morphine (Verified Allergy, Unknown, COMBATIVE, 05/17/19) Triage Vital Signs Vital Signs Date Time Temp Pulse Resp B/P (MAP) Pulse Ox O2 Delivery O2 Flow Rate FiO2 11/19/19 13:27 97.1 98 14 121/66 100 Room Air Vital signs reviewed: Yes Physical Exam CONSTITUTIONAL Constitutional: Present well-developed, Present well-nourished HENT HENT: Present normocephalic, Present atraumatic, Present oropharynx clear/moist, Present nose normal HENT L/R: Present left ext ear normal, Present right ext ear normal EYES Eyes: Reports PERRL, Reports conjunctivae normal NECK Neck: Present ROM normal PULMONARY Pulmonary: Present effort normal, Present breath sounds normal CARDIOVASCULAR Cardiovascular: Present regular rhythm, Present heart sounds normal, Present capillary refill normal, Present normal rate GASTROINTESTINAL Abdominal: Present soft, Present nontender, Present bowel sounds normal GENITOURINARY Genitourinary: Present exam deferred SKIN Skin: Present warm, Present dry MUSCULOSKELETAL Musculoskeletal: Present ROM normal NEUROLOGICAL Neurological: Present alert, Present oriented x 3, Present no gross motor or sensory deficits PSYCHOLOGICAL Psychological: Present mood/affect normal, Present judgement normal Assessment & Plan Medical Decision Making [facility] FIBROMYALGIA Reassessment Reassessment SAME Assessment & Plan Final Impression: (1) Generalized pain (2) Fibromyalgia Last Vital Signs Date Time Temp Pulse Resp B/P (MAP) Pulse Ox O2 Delivery O2 Flow Rate FiO2 11/19/19 13:27 97.1 98 14 121/66 100 Room Air Home Meds Reported Medications [Bentyl] No Conflict Check, 10 MG PO Q8HPRN 05/17/19 Budesonide/Formoterol Fumarate (SYMBICORT 160-4.5 MCG INHALER) 10.2 Gm Hfa.aer.ad, INH BID 05/17/19 Aripiprazole (ABILIFY) 5 Mg Tablet, 5 MG PO DAILY, #30 TAB 05/17/19 Trazodone Hcl (TRAZODONE HCL) 50 Mg Tablet, 50 MG PO DAILY, #30 TAB 05/17/19 Duloxetine Hcl (CYMBALTA) 60 Mg Capsule.dr, 60 MG PO DAILY 05/17/19 Pregabalin (LYRICA) 225 Mg Capsule, 450 MG PO BID 05/17/19 Medications in the ED Ketorolac Tromethamine 30 mg ONCE STAT IM ; Start 11/19/19 at 13:39; Stop 11/19/19 at 13:50; Status DC Cyclobenzaprine HCl 10 mg ONCE ONCE PO ; Start 11/19/19 at 13:45; Stop 11/19/19 at 13:50; Status DC ALMA MANDUJANO MD Nov 19, 2019 13:58
== END 2019-11-19 14:26 | disposition home or self-care (01) ==
LOC: ER 13:30
DX: R52 Pain, unspecified (principal); M79.7 Fibromyalgia; J45.909 Unspecified asthma, uncomplicated
CPT/HCPCS: 99283

== ENCOUNTER 2020-02-25 23:30 | Observation (INO) | payer OTHER ==
[~2020-02-25] VITALS: Ht 152.4 cm; Wt 72.6 kg
--- NOTE | 2020-02-25 23:35 | Emergency Department Note ---
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 Any updates have been documented here. Past Medical History Recent Fever: Yes Clinical Suspicion of Infectio: Yes New/Unexplained Change in Ment: No Past Medical History: Asthma Other Medical History: PANCREATITIS fibromyaglia Past Surgical History: Cholecysctectomy Social History Smoking Cessation: Never Smoker Alcohol Use: None Any Illegal Drug Use: No Other Last Tetanus: UNKNOWN Review of Systems Review of Systems Constitutional: Reports no symptoms EENTM: Reports no symptoms Cardiovascular: Reports chest pain, Reports palpitations Respiratory: Reports dyspnea Gastrointestinal: Reports no symptoms Genitourinary: Reports no symptoms Musculoskeletal: Reports no symptoms Integumentary: Reports no symptoms Neurological: Reports no symptoms Psychological: Reports no symptoms Endocrine: Reports no symptoms Hematological/Lymphatic: Reports no symptoms Physical Exam Related Data Allergies: Coded Allergies: codeine (Verified Allergy, Unknown, HIVES, 05/17/19) morphine (Verified Allergy, Unknown, COMBATIVE, 05/17/19) Vital signs reviewed: Yes Physical Exam CONSTITUTIONAL Constitutional: Present well-developed, Present well-nourished, Present ill appearing HENT HENT: Present normocephalic, Present atraumatic, Present oropharynx clear/anthony st, Present nose normal HENT L/R: Present left ext ear normal, Present right ext ear normal EYES Eyes: Reports PERRL, Reports conjunctivae normal NECK Neck: Present ROM normal PULMONARY Pulmonary: Present breath sounds normal, Present other (tachypnea) CARDIOVASCULAR Cardiovascular: Present heart sounds normal, Present capillary refill normal, Present normal rate, Present tachycardia GASTROINTESTINAL Abdominal: Present soft, Present nontender, Present bowel sounds normal GENITOURINARY Genitourinary: Present exam deferred SKIN Skin: Present warm, Present dry MUSCULOSKELETAL Musculoskeletal: Present ROM normal NEUROLOGICAL Neurological: Present alert, Present oriented x 3, Present no gross motor or sensory deficits PSYCHOLOGICAL Psychological: Present mood/affect normal, Present judgement normal Results Laboratory Lab results reviewed: Yes Laboratory comments Laboratory Tests Test 02/26/20 12:00 02/26/20 09:54 02/26/20 05:50 Creatine Kinase 53 IU/L (29-168) Creatine Kinase MB 0.50 ng/mL (0-5.0) Troponin I 0.010 ng/mL (0-0.300) Coronavirus (PCR) Not detected (NOTDETECTED) Imaging Imaging results reviewed: Yes Impressions [place] [address] Patient Name: CLAUDE CHRISTIAN MR #: [id number] : 1980 Age/Sex: 39/F Req #: [id number] Adm Physician: Ordered by: TAJ NOBLE DO Report #: [id number] Location: ER Room/Bed: Procedure: [id number] CT/CT CHEST W Exam Date: 02/26/20 Exam Time: 244 REPORT STATUS: Signed EXAM: CT Chest WITH contrast (PE Protocol) INDICATION: ^Y ^CP ^[id number] ^[id number] COMPARISON: Same day chest x-ray TECHNIQUE: Chest was scanned utilizing a multidetector helical scanner from the lung apex through the level of the diaphragm after administration of IV contrast. Thin section reconstructions were obtained with special concentration on the pulmonary arteries. Coronal and sagittal reformations were obtained. Dose modulation, iterative reconstruction, and/or weight based adjustment of the mA/kV was utilized to reduce the radiation dose to as low as reasonably achievable. Pulmonary embolism protocol was performed. IV CONTRAST: 100 mL of Isovue-370 COMPLICATIONS: None RADIATION DOSE: Total DLP: 420.75 mGy*cm Estimated effective dose: (DLP x 0.014 x size factor) mSv CTDIvol has been reviewed. It is below the limits set by the Radiation Protocol Committee (RPC). FINDINGS: LINES/ TUBES: None. LUNGS AND AIRWAYS: No filling defect is identified within the pulmonary arteries to the segmental level. Right basilar linear opacity with traction bronchiectasis, likely due to scarring. Airways are normal. PLEURA: The pleural spaces are clear. HEART AND MEDIASTINUM: The thyroid gland is normal. No mediastinal, hilar or axillary lymphadenopathy. The heart is normal in size.. There is no pericardial effusion. . Main pulmonary artery measures 2.5 cm in diameter. UPPER ABDOMEN: Cholecystectomy. Mild central pneumobilia. BONES: The visualized bony thorax is within normal limits. SOFT TISSUES: Unremarkable. IMPRESSION: No pulmonary emboli. Signed by: Dr. Carmelo Iglesias MD on 02/26/2020 3:43 AM Dictated By: CARMELO IGLESIAS MD 2 Transcribed By: DAPHNE on 02/26/20342 COPY TO: TAJ NOBLE DO~ Procedures 12 Lead ECG Interpretation ECG Interpretation : ECG: ECG 1 Armature Rewinder: Interpreted by ED physician Date: Feb 25, 2020 Time: 23:49 Prior ECG tracings: reviewed Rhythm: sinus tachycardia Rate: tachycardia BPM: 105 ST segments normal: Yes T waves normal: No T waves flattening: V1-V6 Clinical Impression: non-specific ECG Assessment & Plan Medical Decision Making MDM Diff Dx : COVID-19 URI, URI, PNA, ACS, CHF , COPD, PE, asthma Assessment & Plan Final Impression: (1) Tachycardia (2) Acute dyspnea Depart Disposition: ADMITTED Home Meds Reported Medications Methotrexate Sodium (METHOTREXATE) 2.5 Mg Tablet, 2.5 MG PO DAILY PT TAKES 1 TAB DAILY ON TUESDAY TO TUESDAY AND TUESDAY TAKE 2 TABLETS. 02/26/20 Budesonide/Formoterol Fumarate (SYMBICORT 160-4.5 MCG INHALER) 10.2 Gm Hfa.aer.ad, INH BID 05/17/19 Aripiprazole (ABILIFY) 5 Mg Tablet, 5 MG PO DAILY, #30 TAB 05/17/19 Trazodone Hcl (TRAZODONE HCL) 50 Mg Tablet, 50 MG PO DAILY, #30 TAB 05/17/19 Duloxetine Hcl (CYMBALTA) 60 Mg Capsule.dr, 60 MG PO DAILY 05/17/19 Discontinued Reported Medications [Bentyl] No Conflict Check, 10 MG PO Q8HPRN 05/17/19 Pregabalin (LYRICA) 225 Mg Capsule, 450 MG PO BID 05/17/19 TAJ NOBLE DO Feb 25, 2020 23:35
[2020-02-25] MEDS ORDERED: ASPIRIN 81 MG CHEW TAB PO ONE (23:45)
[2020-02-26 00:20] LABS: BASOPHILS % 0.2 % (0.0-1.0); EOSINOPHILS # (AUTO) 0.2 (0.0-0.4); EOSINOPHILS % 1.9 % (0.0-6.0); HEMOGLOBIN 10.7 g/dL (12.0-16.0); LYMPHOCYTES # (AUTO) 2.4 (1.0-3.2); LYMPHOCYTES % 23.3 % (18.0-39.1); MEAN CORPUSCULAR HEMOGLOBIN 29.2 pg (28-32); MEAN CORPUSCULAR HGB CONC 33.4 g/dL (31-35); MEAN CORPUSCULAR VOLUME 87.4 fL (81-99); MONOCYTES # (AUTO) 0.6 (0.2-0.8); MONOCYTES % 5.7 % (4.4-11.3); NEUTROPHILS # (AUTO) 7.2 (2.1-6.9); NEUTROPHILS % 68.5 % (38.7-80.0); PLATELET COUNT 435 x10e3/uL (140-360); RED BLOOD COUNT 3.66 x10e6/uL (3.6-5.1); RED CELL DISTRIBUTION WIDTH 20.1 % (11.7-14.4)
[2020-02-26 00:39] LABS: ALANINE AMINOTRANSFERASE 18 IU/L (0-55); ALBUMIN 3.7 g/dL (3.5-5.0); ALBUMIN/GLOBULIN RATIO 1.1 (0.8-2.0); ALKALINE PHOSPHATASE 78 IU/L (40-150); ANION GAP 14.4 mmol/L (8-16); BLOOD UREA NITROGEN 6 mg/dL (7-26); BUN/CREATININE RATIO 8 (6-25); CALCIUM 8.9 mg/dL (8.4-10.2); CARBON DIOXIDE 23 mmol/L (22-29); CHLORIDE 105 mmol/L (98-107); CREATINE KINASE 50 IU/L (29-168); EST GLOMERULAR FILTRATION RATE > 60 ML/MIN (60-); GLUCOSE 171 mg/dL (74-118); POTASSIUM 3.4 mmol/L (3.5-5.1); SODIUM 139 mmol/L (136-145)
[2020-02-26] MEDS ORDERED: KETOROLAC TROMETHAMINE 30 MG/ML VIAL IV STA (00:59)
--- NOTE | 2020-02-26 01:07 | Diagnostic Imaging Report ---
EXAMINATION: CHEST SINGLE (PORTABLE) INDICATION: ^Y ^ERMD ORDER ^[id number] ^0025 ^Y COMPARISON: None FINDINGS: AP view TUBES and LINES: None. LUNGS: Lungs are well inflated. There is no evidence of pneumonia or pulmonary edema. PLEURA: No pleural effusion or pneumothorax. HEART AND MEDIASTINUM: The cardiomediastinal silhouette is unremarkable. BONES AND SOFT TISSUES: No acute osseous lesion. Soft tissues are unremarkable. UPPER ABDOMEN: No free air under the diaphragm. IMPRESSION: No acute thoracic abnormality. Signed by: Dr. Carmelo Iglesias MD on 02/26/2020 1:04 AM
[2020-02-26] MEDS ORDERED: LORAZEPAM INJ 2 MG/ML VIAL IV STA (01:11)
[2020-02-26] MEDS ORDERED: LORAZEPAM INJ 2 MG/ML VIAL ONE (01:20)
[2020-02-26] MEDS ORDERED: SODIUM CHLORIDE 0.9% 50ML 50 ML ONE (02:08)
[2020-02-26] MEDS ORDERED: IOPAMIDOL 370 MG/ML 200 ML INFUS..BTL INJ ONE (02:09)
[2020-02-26] MEDS ORDERED: METHYLPREDNISOLONE SOD SUCC 125 MG/2ML VIAL IV STA (03:34)
[2020-02-26] MEDS ORDERED: ALBUTEROL/IPRATROPIUM 3 ML NEB NEB ONE (03:45)
--- NOTE | 2020-02-26 03:46 | Diagnostic Imaging Report ---
EXAM: CT Chest WITH contrast (PE Protocol) INDICATION: ^Y ^CP ^[id number] ^[id number] COMPARISON: Same day chest x-ray TECHNIQUE: Chest was scanned utilizing a multidetector helical scanner from the lung apex through the level of the diaphragm after administration of IV contrast. Thin section reconstructions were obtained with special concentration on the pulmonary arteries. Coronal and sagittal reformations were obtained. Dose modulation, iterative reconstruction, and/or weight based adjustment of the mA/kV was utilized to reduce the radiation dose to as low as reasonably achievable. Pulmonary embolism protocol was performed. IV CONTRAST: 100 mL of Isovue-370 COMPLICATIONS: None RADIATION DOSE: Total DLP: 420.75 mGy*cm Estimated effective dose: (DLP x 0.014 x size factor) mSv CTDIvol has been reviewed. It is below the limits set by the Radiation Protocol Committee (RPC). FINDINGS: LINES/ TUBES: None. LUNGS AND AIRWAYS: No filling defect is identified within the pulmonary arteries to the segmental level. Right basilar linear opacity with traction bronchiectasis, likely due to scarring. Airways are normal. PLEURA: The pleural spaces are clear. HEART AND MEDIASTINUM: The thyroid gland is normal. No mediastinal, hilar or axillary lymphadenopathy. The heart is normal in size.. There is no pericardial effusion. . Main pulmonary artery measures 2.5 cm in diameter. UPPER ABDOMEN: Cholecystectomy. Mild central pneumobilia. BONES: The visualized bony thorax is within normal limits. SOFT TISSUES: Unremarkable. IMPRESSION: No pulmonary emboli. Signed by: Dr. Carmelo Iglesias MD on 02/26/2020 3:43 AM
[2020-02-26] MEDS ORDERED: ASPIRIN 81 MG CHEW TAB PO ONE (04:30)
--- NOTE | 2020-02-26 07:10 | NUR ---
Nursing report received from Travis CALDERA.
--- NOTE | 2020-02-26 08:20 | NUR ---
Pt reporting pain 8/10, to epigastric/midsternal chest pain. Pt sitting comfortable in bed in no acute distress. Pt ambulated back from with no difficulty. Paged Dr. Delaney Veliz paged regarding pain.
--- NOTE | 2020-02-26 09:07 | NUR ---
Called Dr. Veliz's office for a 2nd time, per staff pt is not currently a pt of Dr. Veliz. Notified current Dr. Guo. Kathleen medical records secretary checking to assist if pt admitted to wrong service by shon CARLOS.
--- NOTE | 2020-02-26 09:23 | NUR ---
Dr. Guo notified of HR of 123 and notified of pain levels.
--- NOTE | 2020-02-26 09:26 | NUR ---
Updated CN on current status of pt., this RN attempted to notify supervisors.
--- NOTE | 2020-02-26 09:39 | NUR ---
Called Dr. Blackwell regarding need for medication to control pain and HR of 123-124. Orders given by Dr. Blackwell to perform EKG, echo, and tramadol. Dr. Blackwell will place orders.
[2020-02-26] MEDS: TRAMADOL HCL 50 MG TAB PO PRN ×2 (10:05→17:01)
--- NOTE | 2020-02-26 10:10 | NUR ---
Pt medicated for pain and 12 lead ekg performed.
--- NOTE | 2020-02-26 10:11 | NUR ---
Attempted to Call report to Iram marcum, unable call d/t capacity problem. Awaiting return call.
--- NOTE | 2020-02-26 10:14 | NUR ---
Per Dr. Guo orders are being placed correctly by Dr. Vasquez.
--- NOTE | 2020-02-26 11:05 | NUR ---
Received call from Lab that Pts covid test is negative. Notified data warehouse specialist. CN notified that rm 181 assigned.
--- NOTE | 2020-02-26 11:12 | NUR ---
Called to notify Dr. Das of negative covid status.
--- NOTE | 2020-02-26 11:21 | NUR ---
Spoke to Dr. Das and provided report to MD regarding pt and notified of admission. He will come and see pt.
--- NOTE | 2020-02-26 11:57 | NUR ---
Nursing report given to Cordell CALDERA, awaiting approval to move pt to non-negative pressure room.
[2020-02-26 12:27] LABS: CREATINE KINASE MB 0.5 ng/mL (0-5.0)
--- NOTE | 2020-02-26 12:30 | NUR ---
PT ARRIVED FROM ER. PT IS AAOX4. EDUCATED PT ABOUT FALL PRECAUTIONS. PT VERBALIZED UNDERSTANDING. CALL LIGHT WITH IN EASY REACH. INSTRUCTED PT TO USE CALL LIGHT FOR ALL THE NEEDS. BED IS LOW AND LOCKED. SIDE RAILS X2. BED ALARM IS ON. PT DENIES NEEDS AT THIS TIME.
[2020-02-26 12:35] VITALS: BP 129/82
--- NOTE | 2020-02-26 12:36 | Consultation ---
DATE OF CONSULTATION: Pulmonary Critical Care Consultation. CHIEF COMPLAINT: Pain with inspiration. HISTORY OF PRESENT ILLNESS: The patient is a 39-year-old woman. She has a history of asthma and uses Symbicort on a regular basis. Over the past 1-2 weeks, she has noticed increased dyspnea with exertion. She also has pain on inspiration. She denies any fever. She is not having nausea or vomiting. PAST SURGICAL HISTORY: Status post cholecystectomy. PAST MEDICAL HISTORY: 1. History of gallstone pancreatitis. 2. Asthma. SOCIAL HISTORY: The patient has never been a smoker. She was a drinker previously, but is not actively drinking. She also denies being . ALLERGIES: THE PATIENT IS ALLERGIC TO CODEINE AND MORPHINE. FAMILY HISTORY: Noncontributory. REVIEW OF SYSTEMS: The patient is afebrile. She is not complaining of any headache. She has no neck pain. She is having some chest discomfort as noted above. She has no difficulty cough. She is not having any nausea or vomiting. She has no leg edema. PHYSICAL EXAMINATION: VITAL SIGNS: The patient is afebrile, blood pressure is 125/84, heart rate is 120 and the respiratory rate in the low 20s, saturation is 100% on 2 L. HEENT: Shows no facial swelling or erythema. LYMPHATIC: Shows no submandibular, cervical, or supraclavicular adenopathy. CARDIAC: Reveals regular rate and rhythm with normal S1, S2. LUNGS: Auscultation of lungs shows clear breath sounds bilaterally. There is no wheezing. ABDOMEN: Soft and nontender. There is no rebound or guarding. EXTREMITIES: Shows no leg edema or calf tenderness. There is no cyanosis or clubbing. SKIN: Shows no rashes. NEUROLOGICAL: Shows no focal abnormalities. LABORATORY DATA: BUN to creatinine ratio is 6 to 0.8. Potassium is 3.4. The other electrolytes are within normal limits. White blood cell count is 10.48, hemoglobin is 7.7, platelet count is 435. RADIOGRAPHIC DATA: Chest CT shows no evidence of pulmonary embolism. There is some scarring at the right base. IMPRESSION: 1. Pleuritic chest pain. 2. Dyspnea. 3. History of asthma. PLAN: 1. Await echocardiogram. 2. Continue tramadol as needed for pain. 3. Continue Symbicort twice a day as well as nebulizers p.r.n. MD KEN Sylvester/RANJEET /[id number]
[2020-02-26] MEDS ORDERED: METHOTREXATE2.5 MG PO (12:44)
--- NOTE | 2020-02-26 12:45 | NUR ---
NATALIA DORSEY AND REPORTED PT VITAL SIGNS HR 122 AND CHEST PAIN 10/02. NEW ORDERS RECEIVED.
--- NOTE | 2020-02-26 12:50 | NUR ---
PAGED DR. DE LA ROSA REGARDING NEW CONSULT.
[2020-02-26] MEDS: METOPROLOL TARTRATE 25 MG TAB PO SCH ×2 (13:05→22:12)
[2020-02-26] MEDS ORDERED: POTASSIUM CHLORIDE 20 MEQ TAB CR PO ONE (13:30)
[2020-02-26] MEDS ORDERED: LEVALBUTEROL HCL SOLN NEBU 0.63 MG/3 ML NEB INH PRN (14:30)
[2020-02-26 14:57] VITALS: BP 129/82
[2020-02-26 14:59] VITALS: BP 129/82
--- NOTE | 2020-02-26 15:47 | History and Physical ---
HISTORY OF PRESENT ILLNESS: The patient is a 39-year-old female who has a past medical history positive for asthma, came here because of shortness of breath and chest pain. She was diagnosed with asthma exacerbation, atypical chest pain, admitted to the hospital. REVIEW OF SYSTEMS: CARDIOVASCULAR: She had chest pain, which is pleuritic in nature, sharp. When ever she take a deep breath, it is increased in intensity, will radiate to her neck. RESPIRATORY: No shortness of breath. No cough. She did have some wheezing earlier on. GENITOURINARY: No frequency. No dysuria. GASTROINTESTINAL: No nausea, vomiting. She has had diarrhea. ALLERGIES: THE PATIENT IS ALLERGIC TO CODEINE AND MORPHINE. SOCIAL HISTORY: She does not smoke. She does not drink. PAST MEDICAL HISTORY: Positive. PHYSICAL EXAMINATION: HEART: Showed regular rhythm. Normal S1, S2 sound. LUNGS: Clear bilaterally. ABDOMEN: Soft. EXTREMITIES: Show no edema. VITAL SIGNS: Blood pressure 129/82, temperature 98.3 degree Fahrenheit, heart rate 132 per minute. LABORATORY DATA: On the blood work, we have a CBC; white count 10.4, hemoglobin 10.7, hematocrit 32.0, platelet count 435,000. On the BMP; sodium 139, potassium 3.4, chloride 105, CO2 of 23, BUN 6, creatinine 0.80, glucose 171, total bilirubin 0.3, and calcium 9.9. AST 21, ALT 18, alkaline phosphatase 78. CK 50, CK-MB 0.40, troponin is negative less than 10, total protein 7.2, albumin 3.7, globulin 3.5, albumin globulin ratio 1.1. CT of chest pain completely negative. IMPRESSION: 1. Atypical chest pain. 2. . 3. Acute diarrhea. 4. Sinus tachycardia. 5. Hypokalemia. TREATMENT AND PLAN: Replace potassium. Recheck potassium and magnesium level. Continue with metoprolol 25 mg twice a day because of tachycardia, which is a sinus tachycardia. Continue aspirin 81 mg daily, Symbicort two inhalation twice a day, metoprolol 25 mg twice a day, tramadol 50 mg q.6 hours as needed, trazodone 50 mg at nighttime, Xopenex q.4 hours as needed for shortness of breath. Dr. Blackwell has been consulted from the Pulmonary point of view. Dr. Crowder from Cardiology point of view. Echocardiogram has been ordered. Time spent 45 minutes. MD ANNABELLE Mendez/RANJEET /[id number]
[2020-02-26 15:52] VITALS: BP 103/65
[2020-02-26] MEDS: BUDESONIDE/FORMOTEROL 160/4.5MCG INHALER INH SCH (19:00)
--- NOTE | 2020-02-26 19:10 | NUR ---
BEDSIDE SHIFT REPORT GIVEN TO THE ETHICS INSTRUCTOR RN. PT DENIED FURTHER NEEDS.
[2020-02-26 20:00] VITALS: BP 111/73
[2020-02-26] MEDS: ARIPIPRAZOLE 5 MG TABLET PO SCH (20:41)
[2020-02-26] MEDS: DULOXETINE HCL 30 MG DELAYED RELEASE PO SCH (20:41)
[2020-02-26 21:20] VITALS: BP 111/73
[2020-02-26] MEDS: METHOTREXATE SOD 2.5 MG TAB PO SCH (21:37)
[2020-02-26] MEDS: TRAZODONE HCL 50 MG TAB PO PRN (22:12)
--- NOTE | 2020-02-26 23:19 | NUR ---
C/O ITCHING ALL OVER THE BODY.NOTIFIED MD AND RECEIVED NEW ORDERS.
[2020-02-26] MEDS: DIPHENHYDRAMINE HCL 25 MG CAP PO PRN (23:49)
[2020-02-27] VITALS (8 sets, daily range): BP systolic 91–103; BP diastolic 56–66
--- NOTE | 2020-02-27 01:38 | Consultation ---
DATE OF CONSULTATION: Cardiology Consultation Report REASON FOR CONSULTATION: Chest pain and tachycardia. CONSULTING PHYSICIAN: Davide Das MD. CHIEF COMPLAINT: Shortness of breath and chest pain. HISTORY OF PRESENT ILLNESS: This is a 39-year-old female with a past medical history of pancreatitis, cholelithiasis, fibromyalgia, gastritis and asthma who presented to the hospital on the setting with shortness of breath as well as chest pain and anxiety. The patient reports that approximately 1 week prior, she was feeling as if she was more congested and have shortness of breath, which she attributed this initially to allergies as well as sinus pressure. She reported that prior to this she had done well in terms of her asthma, but had needed to use her rescue inhaler more frequently. The patient called her primary care provider and there was concern coronavirus, however, the patient took a brief course of antibiotics for atypical organism coverage. However, despite this she continued to feel poorly as well as have some chest pain and a little bit of difficulty breathing. She also reports some secretions and congestion and the patient thus presented to the hospital for further evaluation. She also had significant sinus tachycardia, which improved. Upon speaking to her now, she reports that she felt quite anxious. She also has some mild shortness of breath and has some chest pain, which she states is worst when laying flat as well as better when sitting forward. The chest pain is also worse with deep inspiration. She says that the pain is located on the right side of the chest as well as in the center of the chest as well as with palpation. She also has fibromyalgia in which she has some of bouts of chest pain. Of note, the patient had an EGD done in April 2019, which had esophagitis and gastritis as well. PAST MEDICAL HISTORY: History of gallstone pancreatitis, history of asthma, history of esophagitis and gastritis, history of fibromyalgia, and history of anxiety. PAST SURGICAL HISTORY: As above, gallstone pancreatitis. FAMILY HISTORY: Maternal grandfather with early coronary artery atherosclerosis and myocardial infarction. SOCIAL HISTORY: She denies smoking, alcohol drinking. She is not . She lives with her parents and her daughter. ALLERGIES: ALLERGIC TO CODEINE AND MORPHINE. WITH CODEINE, SHE HAD HIVES AND WITH MORPHINE, SHE HAD HALLUCINATIONS AND AGITATION. HOME MEDICATIONS: Reviewed and include duloxetine 60 mg, methotrexate 2.5 mg, trazodone 50 mg, budesonide/formoterol 160/4.5 mcg, Abilify 5 mg. REVIEW OF SYSTEMS: SKIN: No rashes, no bruising. HEMATOLOGY: No bruising or bleeding. PSYCHIATRIC: Positive anxiety. No hallucinations. NEUROLOGIC: No focal motor weakness. Normal speech. CARDIOVASCULAR: Positive chest pain. Positive dyspnea with exertion. RESPIRATORY: Positive sputum. Positive shortness of breath. GI: Negative constipation. Negative diarrhea. GENITOURINARY: No frequency. No dysuria. Reproductive. No history of nonstop bleeding. No . PHYSICAL EXAMINATION: VITAL SIGNS: She was afebrile, temperature 98.3, pulse maximum 122; however, presently in the 80s, sinus on Telemetry. Blood pressure 129/82, respirations 18, SPO2 98, height 5 feet 0 inches, weight is 160 pounds. BMI 31.2. GENERAL: She is alert and oriented and without acute distress. HEENT: She is normocephalic, atraumatic. Moist mucous membranes. Normal conjunctivae. NECK: Some neck fullness. No JVD. Otherwise, supple with full range of motion. CARDIOVASCULAR: Regular rate and rhythm. No murmurs, rubs or gallops. LUNGS: No respiratory distress. No wheezes. Normal breath sounds. ABDOMEN: Soft, nontender, and nondistended. Positive bowel sounds. EXTREMITIES: No clubbing, cyanosis or edema. No bilateral upper as well as lower extremities. Intact distal pulses. Radial 2+ DP. SKIN: No rashes. No bruising. PSYCHIATRIC: Normal affect. Positive anxiety. NEUROLOGIC: Alert and oriented. Normal speech. No focal deficits. LABORATORY DATA: Sodium 139, potassium 3.4, chloride 105, bicarbonate 23, BUN 6 and creatinine 0.8, glucose 171. White blood cell count of 10.4, hemoglobin 10.7, hematocrit 33.0 and platelets 435. BMP is less than 10, HCG is negative. Troponin is negative x2 at 0.010 and 0.004. AST 21 and ALT 18. Total bilirubin 0.3, alkaline phosphatase 78. Coronavirus is negative. Chest x-rays were reviewed and were essentially unremarkable. Telemetry was reviewed with sinus tachycardia in the 120s; however, presently is at 80 with sinus tachycardia resolved and is now in normal sinus rhythm. CT PE protocol was reviewed with no significant pulmonary emboli identified and non-gated study with no calcification seen within the territory of the coronary arteries. IMPRESSION: Atypical chest forrester, asthma, sinus tachycardia, fibromyalgia, acute gastritis. TREATMENT AND PLAN: The patient has atypical features to her chest pain. Her chest pain is positional in nature as well as worse more with palpation and reproduced as such on examination. She has negative cardiac enzymes x2. Her echocardiogram is reviewed and read and essentially is overall unremarkable with just mild mitral regurgitation and normal EF 55% to 60%. She has no regional wall motion abnormalities and no cricoidal fusion visualized. Her baseline EKG has no significant ST depressions suggestive of pericarditis. It is most likely that her chest pain is noncardiac in nature as well as secondary to possible fibromyalgia, respiratory over gastritis. Due to her neck fullness we will obtain a TSH as well as due to the sinus tachycardia, which has not resolved. She is on metoprolol oral and is doing well. Continue current present therapy. We continue to follow along with you. Time spent > 90 min. with discussion and explanation and assurances MD ESTHER Robin/RANJEET /[id number]
--- NOTE | 2020-02-27 02:20 | NUR ---
RESTING NOW.CALL LIGHT WITHIN REACH.NO PAIN VOICED.ON O2 NC 2LITRE.TELE IS IN PLACE.STABLE CONDITION.
[2020-02-27 06:11] LABS: BASOPHILS % 0.1 % (0.0-1.0); EOSINOPHILS % 0.3 % (0.0-6.0); HEMATOCRIT 32.2 % (34.2-44.1); HEMOGLOBIN 10.2 g/dL (12.0-16.0); LYMPHOCYTES % 16.9 % (18.0-39.1); MEAN CORPUSCULAR HEMOGLOBIN 28.7 pg (28-32); MEAN CORPUSCULAR HGB CONC 31.7 g/dL (31-35); MEAN CORPUSCULAR VOLUME 90.7 fL (81-99); MONOCYTES # (AUTO) 0.8 (0.2-0.8); MONOCYTES % 7.2 % (4.4-11.3); NEUTROPHILS # (AUTO) 8.8 (2.1-6.9); NEUTROPHILS % 74.8 % (38.7-80.0); PLATELET COUNT 428 x10e3/uL (140-360); RED BLOOD COUNT 3.55 x10e6/uL (3.6-5.1); RED CELL DISTRIBUTION WIDTH 21.7 % (11.7-14.4)
[2020-02-27 06:38] LABS: ALANINE AMINOTRANSFERASE 16 IU/L (0-55); ALBUMIN 3.5 g/dL (3.5-5.0); ALKALINE PHOSPHATASE 65 IU/L (40-150); ANION GAP 13.4 mmol/L (8-16); BLOOD UREA NITROGEN 14 mg/dL (7-26); BUN/CREATININE RATIO 18 (6-25); CALCIUM 8.9 mg/dL (8.4-10.2); CARBON DIOXIDE 23 mmol/L (22-29); CHLORIDE 110 mmol/L (98-107); CREATINE KINASE 47 IU/L (29-168); EST GLOMERULAR FILTRATION RATE > 60 ML/MIN (60-); GLUCOSE 103 mg/dL (74-118); POTASSIUM 4.4 mmol/L (3.5-5.1); SODIUM 142 mmol/L (136-145)
--- NOTE | 2020-02-27 06:47 | NUR ---
Bed side shift report given to oncoming Rn.Stable condition.
--- NOTE | 2020-02-27 07:00 | NUR ---
BEDSIDE SHIFT REPORT RECEIVED FROM THE AGRICULTURAL ENGINEERING TECHNICIAN RN. EDUCATED PT ABOUT FALL PRECAUTIONS. PT VERBALIZED UNDERSTANDING. BED IS LOW AND LOCKED. SIDE RAILS X2. CALL LIGHT WITH IN EASY REACH. ALL SAFETY MEASURES IN PLACE. PT DENIES NEEDS AT THIS TIME.
--- NOTE | 2020-02-27 08:00 | NUR ---
PAGED PHARMACY REGARDING SYMBICORT.
[2020-02-27] MEDS: ASPIRIN 81 MG CHEW TAB PO SCH (08:20)
[2020-02-27] MEDS: TRAMADOL HCL 50 MG TAB PO PRN ×2 (08:20→18:37)
[2020-02-27] MEDS: BUDESONIDE/FORMOTEROL 160/4.5MCG INHALER INH SCH ×2 (09:00→20:05)
[2020-02-27] MEDS ORDERED: NON-FORMULARY MEDICATION (Duloxetine Hcl (Cymbalta) 60 MG) PO SCH (09:00)
[2020-02-27] MEDS ORDERED: NON-FORMULARY MEDICATION (Aripiprazole (Abilify) 5 MG) PO SCH (09:00)
[2020-02-27] MEDS: METOPROLOL TARTRATE 25 MG TAB PO SCH ×2 (09:25→20:56)
[2020-02-27] MEDS: IBUPROFEN 400 MG TAB PO PRN ×2 (11:30→20:49)
[2020-02-27] MEDS: LORAZEPAM 1 MG TAB PO PRN (11:30)
--- NOTE | 2020-02-27 15:42 | Progress Note ---
DATE: Internal Medicine Progress Note SUBJECTIVE: The patient is complaining of chest pain, which is very clearly musculoskeletal on palpation. Dr. Crowder saw the patient. From Cardiology point of view, there is no cardiac issue right now. White blood count was elevated. We are going to keep the patient until tomorrow. We are going to repeat a CBC tomorrow. PHYSICAL EXAMINATION: HEART: Showed regular rhythm. Normal S1 and S2 sound. LUNGS: Clear bilaterally. ABDOMEN: Soft. VITAL SIGNS: Blood pressure 97/57, temperature 97.9, heart rate 61 per minute, respiratory rate 18 per minute, and oxygen saturation 100%. LABORATORY DATA: On the CBC; white blood count 11.7, hemoglobin 10.2, hematocrit 32.2, and platelet count 428,000. On the BMP; sodium 142, potassium 4.4, chloride 110, CO2 23, BUN 14, creatinine 0.80, and glucose 103. FINAL IMPRESSION: 1. Asthma exacerbation. 2. Leukocytosis. 3. Very atypical chest pain, most likely costochondral. 4. History of rheumatoid arthritis. 5. History of fibromyalgia. PLAN OF TREATMENT: We are going to continue with oxygen. Continue with Abilify 5 mg daily, aspirin 81 mg daily, and Symbicort 2 inhalation twice a day. Continue Benadryl 25 mg q.6 hours as needed for itching, Cymbalta 60 mg daily, ibuprofen 800 mg q.8 hours as needed for pain, Xopenex q.4 hours as needed for shortness of breath, lorazepam 1 mg p.o. q.8 hours as needed for anxiety, methotrexate 2.5 mg p.o. daily, metoprolol 25 mg twice a day, tramadol 50 mg q.6 hours as needed, and Desyrel 50 mg at bedtime. MD ANNABELLE Mendez/RANJEET /[id number]
--- NOTE | 2020-02-27 19:06 | NUR ---
BEDSIDE SHIFT REPORT GIVEN TO THE LINEN SUPERVISOR RN. PT DENIED FURTHER NEEDS.
--- NOTE | 2020-02-27 19:14 | Progress Note ---
DATE: SUBJECTIVE: The patient has less chest pain. She is not complaining of dyspnea. She has no cough. PHYSICAL EXAMINATION: VITAL SIGNS: Blood pressure is 91/60, saturation is 100% on 2 L, and pulse is 65. HEENT: Shows no facial swelling or erythema. LYMPHATIC: Shows no submandibular, cervical, or supraclavicular adenopathy. CARDIAC: Reveals regular rate and rhythm with normal S1 and S2. LUNGS: Auscultation of lungs shows decreased breath sounds at the bases. There is no wheezing. ABDOMEN: Soft and nontender. There is no rebound or guarding. EXTREMITIES: Show no leg edema or calf tenderness. There is no cyanosis or clubbing. SKIN: Shows no rashes. NEUROLOGICAL: Shows no focal abnormalities. IMPRESSION: 1. Atypical chest pain. 2. History of asthma. PLAN: 1. Continue inhalers. 2. Tramadol as needed for pain. 3. Probable discharge home tomorrow. MD KEN Sylvester/RANJEET /[id number]
--- NOTE | 2020-02-27 20:10 | NUR ---
Assessment done.aaox4.ambulates.no resp.distress noted.call light within reach.instructed to call for assistance as needed.siderails x2 up.
[2020-02-27] MEDS: DIPHENHYDRAMINE HCL 25 MG CAP PO PRN (20:28)
[2020-02-27] MEDS: ARIPIPRAZOLE 5 MG TABLET PO SCH (20:45)
[2020-02-27] MEDS: DULOXETINE HCL 30 MG DELAYED RELEASE PO SCH (20:45)
[2020-02-27] MEDS: METHOTREXATE SOD 2.5 MG TAB PO SCH (20:58)
[2020-02-27] MEDS: TRAZODONE HCL 50 MG TAB PO PRN (20:58)
[2020-02-28] VITALS (9 sets, daily range): BP systolic 91–110; BP diastolic 61–78
[2020-02-28] MEDS: LORAZEPAM 1 MG TAB PO PRN ×2 (02:46→10:51)
[2020-02-28 06:02] LABS: BASOPHILS % 0.2 % (0.0-1.0); EOSINOPHILS # (AUTO) 0.2 (0.0-0.4); HEMATOCRIT 32.4 % (34.2-44.1); HEMOGLOBIN 10.2 g/dL (12.0-16.0); LYMPHOCYTES # (AUTO) 2.8 (1.0-3.2); LYMPHOCYTES % 29.8 % (18.0-39.1); MEAN CORPUSCULAR HGB CONC 31.5 g/dL (31-35); MONOCYTES # (AUTO) 0.6 (0.2-0.8); MONOCYTES % 6.7 % (4.4-11.3); NEUTROPHILS # (AUTO) 5.7 (2.1-6.9); NEUTROPHILS % 60.9 % (38.7-80.0); PLATELET COUNT 411 x10e3/uL (140-360); RED BLOOD COUNT 3.52 x10e6/uL (3.6-5.1); RED CELL DISTRIBUTION WIDTH 22.1 % (11.7-14.4)
--- NOTE | 2020-02-28 07:00 | NUR ---
BEDSIDE SHIFT REPORT RECEIVED FROM THE LICENSED MORTICIAN RN. EDUCATED PT ABOUT FALL PRECAUTIONS. PT VERBALIZED UNDERSTANDING. CALL LIGHT WITH IN EASY REACH. INSTRUCTED PT TO USE CALL LIGHT FOR ALL THE NEEDS. BED IS LOW AND LOCKED. SIDE RAILS X2. PT DENIES NEEDS AT THIS TIME.
[2020-02-28] MEDS: BUDESONIDE/FORMOTEROL 160/4.5MCG INHALER INH SCH ×2 (07:12→20:00)
--- NOTE | 2020-02-28 07:25 | NUR ---
Bed side shift report given to oncoming rn.stable condition.
[2020-02-28] MEDS: ASPIRIN 81 MG CHEW TAB PO SCH (08:03)
[2020-02-28] MEDS: TRAMADOL HCL 50 MG TAB PO PRN ×3 (08:03→20:09)
[2020-02-28] MEDS: METOPROLOL TARTRATE 25 MG TAB PO SCH ×2 (09:06→20:08)
[2020-02-28] MEDS: IBUPROFEN 400 MG TAB PO PRN (09:35)
--- NOTE | 2020-02-28 10:45 | NUR ---
DURING TAKING VITAL SIGNS PT INFORMED THE TECH THAT SHE FEELS SUICIDAL IDEATION. THIS RN IMMEDIATELY ASSESSED PT. PT INFORMED SHE FEELS OKAY AT THIS MOMENT AND NO PLAN FOR ANY SUICIDAL ATTEMPT. PAGED DR. DORSEY AND LEFT MESSAGE REGARDING PT SUICIDAL IDEATION. INFORMED GIN OPERATOR REGARDING THE SAME.
--- NOTE | 2020-02-28 12:30 | NUR ---
WALKING ROUNDS MADE ON PT ROOM EVERY 5 MINS. PT INFORMED SHE FEELS OKAY BUT STILL HAS SUICIDAL IDEATION. REPORTED THE SAME TO MD AND CEMETERY MANAGER. ONE ON ONE SITTER AT BEDSIDE. PT DENIED FURTHER NEEDS.
--- NOTE | 2020-02-28 13:01 | NUR ---
CALL PLACED OUT TO DR. DORSEY AT 1227- SPOKE WITH DR. DORSEY REGARDING PATIENT'S SUICIDAL IDEATIONS. PATIENT VERBALLY VOICED TO PCT, FLOOR NURSE, AND CHARGE NURSE ABOUT SUICIDAL THOUGHTS. ORDERS RECEIVED FROM DR. DORSEY FOR CONSULT WITH DR. HICKS, 1:1 SITTER, AND MAT TEAM EVALUATION. ALL PERSONAL BELONGINGS OF THE PATIENT HAVE BEEN REMOVED FROM THE ROOM AND 1:1 SITTER AVAILABLE IN THE ROOM WITH THE PATIENT. PATIENT IS IN STABLE CONDITION WITH NO S/S OF RESPIRATORY DISTRESS. ROOM AIR. CALL PLACED OUT TO THE MAT TEAM AT 1240 TO INFORM OF PATIENT'S STATUS- AWAITING ARRIVAL OF AVIATION ORDNANCE OFFICER. CALL PLACED OUT TO DR. HICKS REGARDING CONSULT- SPOKE WITH ANSWERING SERVICE PERSONNEL, DAKSHA, AT 1259. ALSO INFORMED DR. HICKS'S P.A. OF THE CONSULT- AWAITING CALLBACK.
--- NOTE | 2020-02-28 13:15 | NUR ---
SUICIDAL RISK ASSESSMENT TOOL, CARE PLAN FORMS COMPLETED AND PLACED ON THE CHART.
--- NOTE | 2020-02-28 13:25 | NUR ---
MAT TEAM TRANSLATIONAL SPECIALIST AT BEDSIDE TO ASSESS THE PT.
--- NOTE | 2020-02-28 14:00 | NUR ---
SITTER AT BEDSIDE. ALL SAFETY MEASURES IN PLACE.
--- NOTE | 2020-02-28 15:54 | NUR ---
CALLED MAT TEAM TO GET UPDATE ON REFERRAL, SPOKE WITH CLAYTON AT [employer], STATES [facility] IS REVIEWING CLINICALS NOW, STATES WILL CALL NURSE AND UPDATE IF GET APPROVED THIS EVENING. WILL NOT NEED AMBULANCE TO TRANSPORT TO FACILITY [facility] WILL COME GET WHEN THEY GET THE WARRANT. WILL FOLLOW UP IN AM.
--- NOTE | 2020-02-28 16:44 | Discharge Summary ---
HOSPITAL COURSE: The patient is a 39-year-old female, past medical history positive for depression, history of rheumatoid arthritis, fibromyalgia, and asthma, came here to the hospital complaining of some atypical chest pain. The patient was seen by insurance verify rep. The pain seems to be more costochondral in origin. EKG was normal. Troponins were negative. The patient during the stay in the hospital and today, she did say that she was very depressed. She was having suicidal thoughts, so the patient is going to be transferred to inpatient psych facility voluntarily. No chest pain right now. PHYSICAL EXAMINATION: HEART: Showed regular rhythm. Normal S1 and S2 sound. LUNGS: Clear bilaterally. VITAL SIGNS: Blood pressure 109/72, temperature 97.9, heart rate 74 per minute, respiratory rate 20 per minute, and oxygen saturation 96%. IMPRESSION: 1. Suicidal ideation. 2. Asthma exacerbation. 3. Costochondral chest pain. 4. Obesity. 5. Acute diarrhea, which is resolved. 6. Sinus tachycardia, which is resolved. 7. Hypokalemia, which is completely resolved. 8. History of rheumatoid arthritis. 9. Fibromyalgia. 10. Depression. PLAN OF TREATMENT: Continue Abilify 5 mg daily, aspirin 81 mg daily, Symbicort 2 inhalation twice a day, Benadryl 25 mg q.6 hours as needed for itching, Cymbalta 60 mg daily, and Lovenox is going to be discontinued. Continue ibuprofen 800 mg 3 times a day as needed for pain, Xopenex q.4 hours as needed for shortness of breath, lorazepam 1 mg q.8 hours as needed for anxiety, methotrexate 2.5 mg daily, metoprolol 25 mg twice a day, tramadol 50 mg q.6 hours as needed, and trazodone 50 mg at bedtime. The patient is going to be transferred to inpatient psych facility. She is one-to-one observation right now. Psychiatric has been consulted. The patient will go to an inpatient psych facility. MD ANNABELLE Mendez/RANJEET /[id number]
--- NOTE | 2020-02-28 16:55 | NUR ---
CALL RECEIVED FROM JESSICA [facility] AND INFORMED NEED DR TO DR COMMUNICATION. DR. DORSEY TO DR. GUEVARA. PAGED DR. DORSEY AND REPORTED THE SAME.
[2020-02-28] MEDS ORDERED: ENOXAPARIN SOD INJ 40 MG/0.4 ML SYR SC SCH (17:00)
--- NOTE | 2020-02-28 17:30 | NUR ---
CALL RECEIVED FROM DR. GUEVARA FROM [facility] AND CALL TRANSFERRED TO DR. DORSEY PER THE REQUEST.
--- NOTE | 2020-02-28 17:55 | NUR ---
[facility] GUEVARA FROM [facility] [place] TO TRANSFER PT PER DR. DORSEY AND DR. GUEVARA.
--- NOTE | 2020-02-28 17:57 | NUR ---
PAGED VINICIO GONZALES REGARDING TRANSFER REPORT. RN WILL CALL BACK PER VINICIO GONZALES.
--- NOTE | 2020-02-28 18:40 | NUR ---
PAGED VINICIO GONZALES AND TRANSFER REPORT GIVEN TO DENIS CHILDERS RN. PER THE RN, ROOM WILL ASSIGN WHEN PT ARRIVE .
--- OUTSIDE RECORDS SUMMARY | 2020-02-28 18:58 | XMS REPORT | Clinical Summary ---
Author Author MARY [facility] Address Unknown Phone Unavailable Care Team Providers Care Ichthyology Teacher Name Role Phone Sharpless PCP Unavailable Allergies [...] Use Types Packs/Day Years Used Never Smoker Drinks/Week oz/Week Comments Alcohol Use No Estimated Date of Delivery Comments Yes 02/06/2017 Sex Assigned at Date Recorded Not on file Last Filed Vital Signs Not on file Plan of Treatment Not on file Results Not on fileafter 02/25/2019 Insurance Type Payer Benefit Subscriber ID Effective Phone Address Plan / Dates Group Medicaid Contracted MEDICAID - MEDICAID [facility]GD [facility] [id number] CARE COMM STAR resent PLAN
--- OUTSIDE RECORDS SUMMARY | 2020-02-28 18:58 | XMS REPORT | Clinical Summary ---
Author Author [facility] Organization [facility] Address Unknown Phone Unavailable Care Team Providers Care Invoice Classification Clerk Name Role Phone Darci Alfredo MD PCP Allergies Comments Active Allergy Reactions [...] fluticasone-salmeterol Inhale 1 Puff 180 Each 3 1 (ADVAIR DISKUS) 500-50 by mouth 2 7 mcg/dose diskus times daily. inhalerIndications: Moderate persistent asthma without complication Active cyclobenzaprine Take 1 tablet 30 tablet 2 07/26/19 1 (FLEXERIL) 10 mg by mouth 8 tabletIndications: [...] spores Active fluticasone (FLONASE) 50 Use 2 Dixie 16 g 5 1 mcg/actuation nasal in each 8 sprayIndications: Acute nostril nonseasonal allergic daily.. rhinitis due to pollen Active naproxen (NAPROSYN) 500 Take 1 tablet 20 tablet 0 mg tabletIndications: by mouth 2 9 Pain times daily as needed for Pain (with food). Active naproxen (NAPROSYN) 500 Take 1 tablet 60 tablet 3 mg tabletIndications: by mouth 2 9 Acute pain of right knee times daily (with meals). Active propranolol (INDERAL) 10 Take 1 tablet 60 tablet 1 mg tabletIndications: by mouth 2 0 Moderate episode of times daily. recurrent major depressive disorder Active pregabalin (LYRICA) 200 Take 1 90 capsule 3 mg capsuleIndications: capsule by 0 Primary fibromyalgia mouth 3 times syndrome daily. Active levonorgestrel-ethinyl Take 1 tablet 28 Each 11 0 estradiol (AVIANE) 0.1-20 by mouth 0 mg-mcg tabletIndications: daily. Encounter for initial prescription of contraceptive pills Active celecoxib (CELEBREX) 100 Take 1 60 capsule 2 0 mg capsuleIndications: capsule by 0 Primary fibromyalgia mouth 2 times syndrome, Arthralgia, daily. unspecified joint Active traMADoL (ULTRAM) 50 mg Take 1 tablet 10 tablet 0 tabletIndications: by mouth 0 Fibromyalgia every 6 hours as needed for up to 10 doses for Pain. Active clobetasoL (TEMOVATE) Apply to 60 g 3 11/23 0.05 % affected area 0 ointmentIndications: 2 times Psoriasis daily. Active hydrOXYzine (ATARAX) 25 Take 1 tablet 90 tablet 1 mg tabletIndications: by mouth 0 Itch every 8 hours as needed for Itching. Active ARIPiprazole (ABILIFY) 10 Take 1 tablet 30 tablet 1 mg tabletIndications: by mouth 0 Moderate episode of daily. recurrent major depressive disorder Active DULoxetine (CYMBALTA) 60 Take 1 30 capsule 1 0 mg delayed release capsule by 0 capsuleIndications: mouth daily Moderate episode of For recurrent major depression, depressive disorder fibromyalgia. Active traZODone (DESYREL) 100 Take 1 tablet 30 tablet 1 mg tabletIndications: by mouth at 0 Moderate episode of bedtime recurrent major nightly. depressive disorder 06/05/2019 Discontinued (Reorder) pregabalin (LYRICA) 200 Take 200 mg 0 mg capsule by mouth 2 times daily. 04/13/2019 Discontinued (Reorder) DULoxetine (CYMBALTA) 60 Take 1 30 capsule 1 1 mg delayed release capsule by 9 capsuleIndications: mouth daily Moderate episode of For recurrent major depression, depressive disorder fibromyalgia. 04/13/2019 Discontinued (Reorder) propranolol (INDERAL) 10 Take 1 tablet 60 tablet 1 mg tabletIndications: by mouth 3 9 Moderate episode of times daily. recurrent major depressive disorder 04/13/2019 Discontinued (Reorder) ARIPiprazole (ABILIFY) 10 Take 1 tablet 30 tablet 1 mg tabletIndications: by mouth 9 Moderate episode of daily. recurrent major depressive disorder 05/04/2019 Discontinued (Reorder) DULoxetine (CYMBALTA) 60 Take 1 30 capsule 0 1 mg delayed release capsule by 9 capsuleIndications: mouth daily Moderate episode of For recurrent major depression, depressive disorder fibromyalgia. 05/04/2019 Discontinued (Reorder) ARIPiprazole (ABILIFY) 10 Take 1 tablet 30 tablet 0 mg tabletIndications: by mouth 9 Moderate episode of daily. recurrent major depressive disorder 05/04/2019 Discontinued (Reorder) propranolol (INDERAL) 10 Take 1 tablet 60 tablet 0 mg tabletIndications: by mouth 3 9 Moderate episode of times daily. recurrent major depressive disorder 08/10/2019 Discontinued (Reorder) ARIPiprazole (ABILIFY) 10 Take 1 tablet 30 tablet 1 mg tabletIndications: by mouth 0 Moderate episode of daily. recurrent major depressive disorder 08/10/2019 Discontinued (Reorder) DULoxetine (CYMBALTA) 60 Take 1 30 capsule 1 0 mg delayed release capsule by 0 capsuleIndications: mouth daily Moderate episode of For recurrent major depression, depressive disorder fibromyalgia. 08/10/2019 Discontinued (Reorder) traZODone (DESYREL) 50 mg Take 1 tablet 30 tablet 1 tabletIndications: by mouth at 0 Moderate episode of bedtime recurrent major nightly. depressive disorder 09/03/2019 Discontinued (Reorder) celecoxib (CELEBREX) 100 Take 1 60 capsule 2 0 mg capsuleIndications: capsule by 0 Primary fibromyalgia mouth 2 times syndrome daily. 06/22/2019 amoxicillin (AMOXIL) 500 Take 1 42 capsule 0 0 mg capsuleIndications: capsule by 0 Acute pharyngitis, mouth 3 times unspecified etiology daily for 14 days. 09/07/2019 Discontinued (Reorder) traZODone (DESYREL) 50 mg Take 1 tablet 30 tablet 1 tabletIndications: by mouth at 0 Moderate episode of bedtime recurrent major nightly. depressive disorder 09/07/2019 Discontinued (Reorder) DULoxetine (CYMBALTA) 60 Take 1 30 capsule 1 0 mg delayed release capsule by 0 capsuleIndications: mouth daily Moderate episode of For recurrent major depression, depressive disorder fibromyalgia. 09/07/2019 Discontinued (Reorder) ARIPiprazole (ABILIFY) 10 Take 1 tablet 30 tablet 1 mg tabletIndications: by mouth 0 Moderate episode of daily. recurrent major depressive disorder 09/12/2019 oseltamivir (TAMIFLU) 75 Take 1 10 capsule 0 0 mg capsuleIndications: capsule by 0 Flu syndrome mouth 2 times daily for 5 days. 09/21/2019 azithromycin (ZITHROMAX) Take 1 tablet 10 tablet 0 500 mg tabletIndications: by mouth 0 Acute upper respiratory daily for 10 infection days. 10/16/2019 Discontinued (Reorder) ARIPiprazole (ABILIFY) 10 Take 1 tablet 30 tablet 1 mg tabletIndications: by mouth 0 Moderate episode of daily. recurrent major depressive disorder 10/16/2019 Discontinued (Reorder) DULoxetine (CYMBALTA) 60 Take 1 30 capsule 1 0 mg delayed release capsule by 0 capsuleIndications: mouth daily Moderate episode of For recurrent major depression, depressive disorder fibromyalgia. 10/16/2019 Discontinued (Reorder) traZODone (DESYREL) 50 mg Take 1 tablet 30 tablet 1 tabletIndications: by mouth at 0 Moderate episode of bedtime recurrent major nightly. depressive disorder 12/21/2019 Discontinued (Reorder) ARIPiprazole (ABILIFY) 10 Take 1 tablet 30 tablet 1 mg tabletIndications: by mouth 0 Moderate episode of daily. recurrent major depressive disorder 12/21/2019 Discontinued (Reorder) DULoxetine (CYMBALTA) 60 Take 1 30 capsule 1 0 mg delayed release capsule by 0 capsuleIndications: mouth daily Moderate episode of For recurrent major depression, depressive disorder fibromyalgia. 12/21/2019 Discontinued (Reorder) traZODone (DESYREL) 100 Take 1 tablet 30 tablet 1 mg tabletIndications: by mouth at 0 Moderate episode of bedtime recurrent major nightly. depressive disorder 01/18/2020 Discontinued (Reorder) ARIPiprazole (ABILIFY) 10 Take 1 tablet 30 tablet 1 mg tabletIndications: by mouth 0 Moderate episode of daily. recurrent major depressive disorder 01/18/2020 Discontinued (Reorder) DULoxetine (CYMBALTA) 60 Take 1 30 capsule 1 0 8/28/202 mg delayed release capsule by 0 capsuleIndications: mouth daily Moderate episode of For recurrent major depression, depressive disorder fibromyalgia. 01/18/2020 Discontinued (Reorder) traZODone (DESYREL) 100 Take 1 tablet 30 tablet 1 202 mg tabletIndications: by mouth at 0 Moderate episode of bedtime recurrent major nightly. depressive disorder Active Problems Problem Noted Date Alcohol use disorder, mild, in sustained remission 1 Alcohol use disorder 10/06/2017 19 weeks gestation of 09/14/2016 Overview: Formatting of this note might be differ ent from the original. Estimated Date of Delivery: 02/06/17 BY 16w US Labs: Type/Scr Early RPR Rubella HBsAG Early HIV Sickle Scr Early H/H Early Plt UCx O +/- NR Non-immune Neg Neg 11.7/35.9 390 GC/Chl Pap Quad Scr 1 hr GTT 3rd RPR 3r d HIV 3rd H/H 3rd Plt GBS Neg/Neg [...] visit 08/24/2016 Still on antibiotics, UCx at n ext clinic visit 09/14/2016 SUSSY neg Rubella non-immune status, antepartum 07/29/2016 Overview: MMR Asthma 07/29/2016 Overview: 07/29/2016 Advair twice daily and Abutero l prn. F/U with closely with pulmonology 08/11/2016 well controlled. Referred to [facility] for consultation 08/24/2016 Not compliant with treatment. Will restart advair twice daily. Has pulm appt 09/09/16 09/14/2016 Pulm appt 09/09: patient to co ntinue advair twice daily. Also prescribed amoxicillin for pulmonary in fection. Patient to continue cetirizine and zetonna for allergic rhi nitis Dysthymia Depression Pain Fibromyalgia Resolved Problems Problem Noted Date Resolved Date Elderly multigravida 07/29/2016 07/07/2019 Overview: S/p genetic counseling. Declined amnio but desires NIPT once approved with Medicaid 08/24/2016 NIPT performed today, results pending 09/14/2016 NIPT neg Encounters Care Team Description Date Type Specialty Rene Alberts MD Moderate episode of recurrent major depr essive disorder 01/18/2020 Telephonic Psychiatry Encounter Jaylin Oquendo Moderate episode of recurrent major depr essive disorder (Primary Dx) 12/28/2019 Telephonic Psychology Encounter Rene Alberts MD Moderate episode of recurrent major depr essive disorder 12/21/2019 Telephonic Psychiatry Encounter Rene Alberts MD Medications 12/13/2019 Refill Psychiatry Darci Alfredo MD Psoriasis (Primary Dx); Itch 12/11/2019 Telephonic Family Practice Encounter Darci Alfredo MD 12/11/2019 Orders Only Family Practice Jaylin Oquendo MDD (major depressive disorder), recurre nt episode, moderate (Primary Dx) 12/05/2019 Telephonic Psychology Encounter Rene Alberts MD ERRONEOUS ENCOUNTER--DISREGARD (Primary Dx) 11/26/2019 Telephonic Psychiatry Encounter Kmi Boudreaux MD Fibromyalgia (Primary Dx) 11/22/2019 Emergency Emergency Medicine - 11/23/2019 Jaylin Oquendo MDD (major depressive disorder), recurre nt episode, moderate (Primary Dx) 11/16/2019 Telephonic Psychology Encounter Rene Alberts MD Medications 11/15/2019 Refill Psychiatry Jaylin Oquendo MDD (major depressive disorder), recurre nt episode, moderate (Primary Dx) 11/02/2019 Telephonic Psychology Encounter Rene Alberts MD Moderate episode of recurrent major depr essive disorder 10/16/2019 Office Visit Psychiatry Rene Alberts MD Medications 10/09/2019 Refill Psychiatry Rene Alberts MD Moderate episode of recurrent major depr essive disorder 09/07/2019 Telephonic Psychiatry Encounter Darci Alfredo MD Flu syndrome (Primary Dx); Acute upper respiratory infection; Arthralgia, unspecified joint; Fever in other diseases; Primary fibromyalgia syndrome 09/03/2019 Telephonic Family Practice Encounter Rene Alberts MD Moderate episode of recurrent major depr essive disorder 08/10/2019 Telephonic Psychiatry Encounter Darci Alfredo MD Rigby, Deborah A, CNM Encounter for initial prescription of co ntraceptive pills (Primary Dx) 07/06/2019 OB Obstetrics Rene Alberts MD Medications 06/30/2019 Refill Psychiatry Rene Alberts MD Medications 06/26/2019 Refill Psychiatry Darci Alfredo MD Encounter for vaccination (Primary Dx); Primary fibromyalgia syndrome; Spine pain; Radiculopathy of thoracolumbar region; Acute pharyngitis, unspecified etiology; Papanicolaou test, as part of routine gynecological examination; Vaccine counseling 06/05/2019 Office Visit Family Practice Darci Alfredo MD 06/05/2019 Orders Only Family Practice Rene Alberts MD Moderate episode of recurrent major depr essive disorder 05/04/2019 Office Visit Psychiatry Darci Alfredo MD [place], Stacy M MDD (major depressive disorder), recurre nt episode, moderate (Primary Dx); Alcohol use disorder, moderate, dependence; Cocaine use disorder, mild, in early remission; History of marijuana use; Anxiety disorder, unspecified type 04/13/2019 Office Visit Psychology Rene Alberts MD Medications 04/13/2019 Refill Psychiatry Rene Alberts MD Medications 03/22/2019 Refill Psychiatry Rene Alberts MD Medications 02/27/2019 Refill Psychiatry after 02/25/2019 Immunizations Name Administration Dates Next Due Influenza Vaccine 03/17/2016, 04/04/2015 Influenza Vaccine, 03/21/2017 Seasonal, Injectable Influenza, Injectable, 06/05/2019 Quadrivalent PPV 23 (Pneumococcal 06/05/2019 Polysaccharide 23 Valent) Pneumococcal 13-valent 06/05/2015 conj 0.5 mL injection Tdap (Tetanus Toxoid, 11/18/2016 Reduced Diphtheria Toxoid And Acellular Pertussis, Absorbed) Family History Medical History Relation Name Comments [...] drinks or equivalent 0.0 occasionally but not w hile Yes Food Insecurity Answer Date Recorded Within the past 12 months, you worried that your Never sal e 11/24/2017 food would run out before you got money to buy more. Within the past 12 months, the food you bought Never true 11/24/2017 just didn't last and you didn't have mo vale to get more. Sex Assigned at Date Recorded Not on file Industry Job Start Date Occupation Not on file Not on file Not on file Travel End Travel History Travel Start No recent travel history available. Date Recorded COVID-19 Exposure Response 02/26/2020 2:14 PM [employer] In the last month, have you been in contact with No / Unsure someone who was confirmed or suspected to have Coronavirus / COVID-19? Last Filed Vital Signs Reading Time Taken Comments Vital Sign 112/68 11/23/2019 4:15 AM CDT Blood Pressure 88 11/23/2019 4:15 AM CDT Pulse 37.1 C (98.7 F) 11/23/2019 3:00 AM CDT Temperature 18 11/23/2019 4:15 AM CDT Respiratory Rate 98% 11/23/2019 4:15 AM CDT Oxygen Saturation - - Inhaled Oxygen Concentration 73.4 kg (161 lb 12.8 oz) 10/16/2019 1:43 PM CDT Weight 152.4 cm (5') 10/16/2019 1:43 PM CDT Height 31.6 10/16/2019 1:43 PM CDT Body Mass Index Plan of Treatment Care Team Description Date Type Specialty Rene Alberts MD [address] [place] [address] 1st attempt @ 01:18PM (02/26/20) No answ er. AMAURI 02/29/2020 Telephonic Psychiatry Encounter Health Maintenance Due Date Last Done Comments Pap Cervical Cancer Scrn 07/25/2015 07/24/2014 (Previously completed - External) HPV Cervical Cancer Scrn 10/18/2018 10/18/2017, 07/29/2016, 07/29/2016 Goals Goal Patient Associated Recent Progress Patient-Stat Aut hor Goal Type Problems ed? Eat Healthy Lifestyle On track (08/31/2019 No Preston aranda, 3:43 PM CDT) Jackie Jarquin Results Not on fileafter 02/25/2019 Insurance Type Payer Benefit Subscriber ID Effective Phone Address Plan / Dates Group [facility] xxxxxxxxx 2019-[address] [facility] [address] [id number] [place] [address] [facility] [employer] xxxxxxxxx 2018- [phone] [facility] [address] Present [id number] [facility] [employer] [place], [place] [address] Marley Gregory Psych Self 1980 [phone] (Home) [place] [address]
--- OUTSIDE RECORDS SUMMARY | 2020-02-28 18:58 | XMS REPORT | Continuity of Care Document ---
Author Author [facility] t Organization [facility] Address [address] [place] [address] Phone Unavailable Care Team Providers Care Real Estate Operations Manager Name Role Phone NONSTAFF PCP Unavailable BRANDAN NOBLE Attphys Unavailable Lexus CARLOS, Judy López Attphys Jaylin Oquendo Attphys Unavailable Juni CARLOS, N Darci Attphys Kanika CARLOS, T Kim Attphys Isaiah COSTA, Leatha Gonzales Attphys SHAWN POMPA Attphys Unavailable ALMA MANDUJANO Attphys Unavailable Shannan Ospina Attphys Unavailable JASONKulwinder HARRIS Attphys Unavailable Payers Payer Name Policy Type Policy Number Effective Date Expiration Date [facility] COMM[employer] ITY PLAN STARxxxxxxxxx1//[id number] [address] xxxxxxxxx 2019 00:00:00 2020 23:59:59 H [facility] [id number] 2017 00:00 :00 [facility] Problems Condition Name Condition Details Condition Category Status Onset Date Resolution Date Last Treatment Date Treating Clinician Comments Source Alcohol use disorder, mild, in sustained remission Alc ohol use disorder, mild, in sustained remission Disease Active 2018-01-25 00:00:00 [facility] Alcohol use disorder Alcohol use disorder Disease Active 00:00:00 [facility] 19 weeks gestation of 19 weeks gestation of Dis ease Active 2016-09-14 00:00:00 Overview: Fo rmatting of this note might be different from the original.Estimated Date of Delivery: 02/06/17 BY 16w US Labs:Type/Scr Early RPR Rubella HBsAG Early HIV Sickle Scr Early H/H Early Plt UCx O +/- NR Non-immune Neg Neg 11.7/35.9 390 GC/Chl Pap Quad Scr 1 hr GTT 3rd RPR 3rd HIV 3rd H/H 3rd Plt GBS Neg/Neg ASCUS HR HPV + NegNIPT neg TDaP: U/S:Dating U/S: 16w Anatomy U/S: 09/24/16Plan: [ ] Glucola @ 24-28 weeks[ ] TDap and RPR @ 28-32 weeks[ ] 3rd TM counseling[ ] 3rd Trimester HIV, CBC, GBS [facility] 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 Referred for colpo08/24/2016 Per patient had colpo on 08/23 @ [facility] and no biopsies were taken. Was told it was "normal". Will need pp pap smear [facility] UTI in , antepartum UTI in , antepartum Disease Active 2016-08-10 00:00:00 Overview: treated. SUSSY next visit08/24/2016 Still on antibiotics, UCx at next clinic visit09/14/2016 SUSSY neg [facility] Rubella non-immune status, antepartum Rubella non-immune sta tus, antepartum Disease Active 2016-07-29 00:00:00 Overview: MMR [facility] Asthma Asthma Disease Active 2016-07-29 00:00:00 Overview: 07/29/2016 Advair twice daily and Abuterol prn. F/U with closely with pulmonology 08/11/2016 well controlled. Referred to [facility] for consultation08/24/2016 Not compliant with treatment. Will restart advair twice daily. Has pulm appt 09/09/ Pulm appt 09/09: patient to continue advair twice daily. Also prescribed amoxicillin for pulmonary infection. Patient to continue cetirizine and zetonna for allergic rhinitis [facility] Generalized pain Problem Active [facility] Dysthymia Dysthymia Disease Active [facility] Depression Depression Disease Active arris [facility] Pain Pain Disease Active [facility] Fibromyalgia Fibromyalgia Disease Active [facility] History of Past Illness Condition Name Condition Details Condition Category Status Onset Date Resolution Date Last Treatment Date Treating Clinician Comments Source Elderly multigravida Elderly multigravida Disease Resolved 07-29 00:00:00 2019-07-07 00:00:00 2019-07-07 13:51:23 [facility] Allergies, Adverse Reactions, Alerts Allergy Name Allergy Type Status Severity Reaction(s) Onset Date Inacti ve Date Treating Clinician Comments Source Morphine Allergy to substance Active COMBATIVE 2019-05-17 00:00:00 [facility] Codeine Allergy to substance Active HIVES 2019-05-17 00:00:00 [facility] Codeine Propensity to adverse reactions to drug Active Hives 2018-09-13 00:00:00 Yonatan egan Morphine Propensity to adverse reactions to drug Active Other (See Comments) 2018-09-13 00:00:00 "get aggresgive." Yonatan Campbell ethodist Codeine Propensity to adverse reactions Active Rash 2016-09-27 0 0:00:00 [facility] Morphine Propensity to adverse reactions Active 2016-09 00:00:00 "Uncontrollable" [facility] Black Pepper Propensity to adverse reactions to drug Active Anaphylaxis, Itching 2015-10-29 00:00:00 [facility] buddy Capsaicin Propensity to adverse reactions to drug Active Anaphylaxis 2015-10-29 00:00:00 [facility] Lorna Propensity to adverse reactions to drug Active Angioedema 2015-10-29 00:00:00 [facility] Paprika Propensity to adverse reactions to drug Active Hives, Itching 2015-10-29 00:00:00 [facility] Zafirlukast Propensity to adverse reactions to drug Active Cough, Anxiety 2015-06-05 00:00:00 disoriented [facility] whittaker Morphine Propensity to adverse reactions to drug Active Other 2015-03-04 00:00:00 [facility] Codeine Propensity to adverse reactions to drug Active 2014-11-02 00:00:00 [facility] Family History Family Member Diagnosis Comments Start Date Stop Date Source Maternal grandfather Cancer [facility] Maternal grandfather Heart [facility] Maternal grandmother Arthritis [facility] Maternal grandmother Hypertension [facility] Paternal grandmother Diabetes [facility] Social History Social Habit Start Date Stop Date Quantity Comments Source ASSERTION 2016-05-16 00:00:[address] [facility] Sex Assigned At [facility] Exposure to SARS-CoV-2 (event) Not sure [facility] Alcohol intake 2019-12-11 00:00:00 2019-12-11 00:00:00 Current drinker of alcohol (finding) [facility] History SDOH Food Worry 2017-11-24 00:00:00 2017-11-24 00:00:00 1 [facility] SDOH Food Scarcity 2017-11-24 00:00:00 2017-11-24 00:00:00 1 [facility] Alcohol Comment 2016-07-27 00:00:00 2016-07-27 00:00:00 occasion ally but not while [facility] Smoking Status Start Date Stop Date Source Never smoker [facility] Medications Ordered Medication Name Filled Medication Name Start Date Stop Da te Current Medication? Ordering Clinician Indication Dosage Frequency Signature (SIG) Comments Components Source ARIPiprazole (ABILIFY) 10 mg tablet 2020-01-18 00:00:00 Yes Moderate episode of recurrent major depressive disorder 10mg QD Take 1 tablet by mouth daily. [facility] DULoxetine (CYMBALTA) 60 mg delayed release capsule 01-17 00:00:00 Yes Moderate episode of recurrent major depressive disorder 60mg QD Take 1 capsule by mouth daily For depression, fibromyalgia. [facility] traZODone (DESYREL) 100 mg tablet 2020-01-18 00:00:00 Yes Moderate episode of recurrent major depressive disorder 100mg T beth 1 tablet by mouth at bedtime nightly. [facility] ARIPiprazole (ABILIFY) 10 mg tablet 2019-12-21 00:00:0 0 2020-01-18 00:00:00 No Moderate episode of recurrent major depressive disorde r 10mg QD Take 1 tablet by mouth daily. [facility] DULoxetine (CYMBALTA) 60 mg delayed release capsule 2019-12-21 00:00:2020-01-18 00:00:00 No Moderate episode of recurrent major depressive disorder 60mg QD Take 1 capsule by mouth daily For depression, f ibromyalgia. [facility] traZODone (DESYREL) 100 mg tablet 2019-12-21 00:00:00 2019 00:00:00 No Moderate episode of recurrent major depressive disorder 100mg Take 1 tablet by mouth at bedtime nightly. [facility] clobetasoL (TEMOVATE) 0.05 % ointment 2019-12-11 00:00:00 Yes Psoriasis Q.5D Apply to affected area 2 times daily. [facility] hydrOXYzine (ATARAX) 25 mg tablet 2019-12-11 00:00:00 Yes Itch 25mg Take 1 tablet by mouth every 8 hours as needed for Itching. [facility] traMADoL (ULTRAM) 50 mg tablet 2019-11-23 00:00:00 Yes Fibromyalgia 50mg Take 1 tablet by mouth every 6 hours as needed for up to 10 dose s for Pain. [facility] ARIPiprazole (ABILIFY) 10 mg tablet 2019-10-16 00:00:0 0 2019-12-21 00:00:00 No Moderate episode of recurrent major depressive disorde r 10mg QD Take 1 tablet by mouth daily. [facility] DULoxetine (CYMBALTA) 60 mg delayed release capsule 2019-10-16 00:00:00 2019-12-21 00:00:00 No Moderate episode of recurrent major depressive disorder 60mg QD Take 1 capsule by mouth daily For depression, f ibromyalgia. [facility] traZODone (DESYREL) 100 mg tablet 2019-10-16 00:00:00 2019 00:00:00 No Moderate episode of recurrent major depressive disorder 100mg Take 1 tablet by mouth at bedtime nightly. [facility] ARIPiprazole (ABILIFY) 10 mg tablet 2019-09-07 00:00:0 0 2019-10-16 00:00:00 No Moderate episode of recurrent major depressive disorde r 10mg QD Take 1 tablet by mouth daily. [facility] DULoxetine (CYMBALTA) 60 mg delayed release capsule 2019-09-07 00:00:00 2019-10-16 00:00:00 No Moderate episode of recurrent major depressive disorder 60mg QD Take 1 capsule by mouth daily For depression, f ibromyalgia. [facility] traZODone (DESYREL) 50 mg tablet 2019-09-07 00:00:00 2019-09 00:00:00 No Moderate episode of recurrent major depressive disorder 50mg Take 1 tablet by mouth at bedtime nightly. [facility] celecoxib (CELEBREX) 100 mg capsule 2019-09-03 00:00:00 Yes Arthralgia, unspecified joint 100mg Q.5D Take 1 capsule by mouth 2 times daily. [facility] azithromycin (ZITHROMAX) 500 mg tablet 2019-08-24 1 00:00:00 2019-09-21 23:59:00 No Acute upper respiratory infection 500mg QD Take 1 tablet by mouth daily for 10 days. [facility] oseltamivir (TAMIFLU) 75 mg capsule 2019-09-03 00:00:0 0 2019-09-12 23:59:00 No Flu syndrome 75mg Q.5D Take 1 capsule by mouth 2 times michelle ly for 5 days. [facility] traZODone (DESYREL) 50 mg tablet 2019-08-10 00:00:00 2019-08 00:00:00 No Moderate episode of recurrent major depressive disorder 50mg Take 1 tablet by mouth at bedtime nightly. [facility] DULoxetine (CYMBALTA) 60 mg delayed release capsule 2019-08-10 00:00:00 2019-09-07 00:00:00 No Moderate episode of recurrent major depressive disorder 60mg QD Take 1 capsule by mouth daily For depression, f ibromyalgia. [facility] ARIPiprazole (ABILIFY) 10 mg tablet 2019-08-10 00:00:0 0 2019-09-07 00:00:00 No Moderate episode of recurrent major depressive disorde r 10mg QD Take 1 tablet by mouth daily. [facility] levonorgestrel-ethinyl estradiol (AVIANE) 0.1-20 mg-mcg tabl et 2019-07-06 00:00:00 Yes Encounter for initial prescr iption of contraceptive pills 1{tbl} QD Take 1 tablet by mouth daily. [facility] pregabalin (LYRICA) 200 mg capsule 2019-06-05 11:52:37 202 00:00:00 No 200mg Q.5D Take 200 mg by mouth 2 times daily. [facility] pregabalin (LYRICA) 200 mg capsule 2019-06-05 00:00:00 Yes Primary fibromyalgia syndrome 200mg Take 1 capsule by mouth 3 times jeffery y. [facility] celecoxib (CELEBREX) 100 mg capsule 2019-06-05 00:00:0 0 2019-09-03 00:00:00 No Primary fibromyalgia syndrome 100mg Q.5D Take 1 capsule by mouth 2 times daily. [facility] amoxicillin (AMOXIL) 500 mg capsule 2019-06-05 00:00:0 0 2019-06-22 23:59:00 No Acute pharyngitis, unspecified etiology 500mg Take 1 capsule by mouth 3 times daily for 14 days. [facility] propranolol (INDERAL) 10 mg tablet 2019-05-04 00:00:00 Yes Moderate episode of recurrent major depressive disorder 10mg Q.5D Take 1 tablet by mouth 2 times daily. [facility] ARIPiprazole (ABILIFY) 10 mg tablet 2019-05-04 00:00:0 0 2019-08-10 00:00:00 No Moderate episode of recurrent major depressive disorde r 10mg QD Take 1 tablet by mouth daily. [facility] DULoxetine (CYMBALTA) 60 mg delayed release capsule 2019-05-04 00:00:00 2019-08-10 00:00:00 No Moderate episode of recurrent major depressive disorder 60mg QD Take 1 capsule by mouth daily For depression, f ibromyalgia. [facility] traZODone (DESYREL) 50 mg tablet 2019-05-04 00:00:00 2019-07 00:00:00 No Moderate episode of recurrent major depressive disorder 50mg Take 1 tablet by mouth at bedtime nightly. [facility] DULoxetine (CYMBALTA) 60 mg delayed release capsule 2019-04-13 00:00:00 2019-05-04 00:00:00 No Moderate episode of recurrent major depressive disorder 60mg QD Take 1 capsule by mouth daily For depression, f ibromyalgia. [facility] ARIPiprazole (ABILIFY) 10 mg tablet 2019-04-13 00:00:0 0 2019-05-04 00:00:00 No Moderate episode of recurrent major depressive disorde r 10mg QD Take 1 tablet by mouth daily. [facility] propranolol (INDERAL) 10 mg tablet 2019-04-13 00:00:00 202 00:00:00 No Moderate episode of recurrent major depressive disorder 10mg Take 1 tablet by mouth 3 times daily. [facility] DULoxetine (CYMBALTA) 60 mg delayed release capsule 2019-01-26 00:00:00 2019-04-13 00:00:00 No Moderate episode of recurrent major depressive disorder 60mg QD Take 1 capsule by mouth daily For depression, f ibromyalgia. [facility] propranolol (INDERAL) 10 mg tablet 2019-01-26 00:00:00 201 01-05-20 00:00:00 No Moderate episode of recurrent major depressive disorder 10mg Take 1 tablet by mouth 3 times daily. [facility] ARIPiprazole (ABILIFY) 10 mg tablet 2019-01-26 00:00:0 0 2019-04-13 00:00:00 No Moderate episode of recurrent major depressive disorde r 10mg QD Take 1 tablet by mouth daily. [facility] naproxen (NAPROSYN) 500 mg tablet 2019-01-15 00:00:00 Yes Acute pain of right knee 500mg Take 1 tablet by mouth 2 times daily (with meal s). [facility] naproxen (NAPROSYN) 500 mg tablet 2018-10-22 00:00:00 Yes Pain 500mg Take 1 tablet by mouth 2 times daily as needed for Pain (with food). [facility] fluticasone (FLONASE) 50 mcg/actuation nasal spray 2018-01 00:00:00 Yes Acute nonseasonal allergic rhinitis due to pollen 2{spray} QD Use 2 [place] in each nostril daily.. [facility] cetirizine (ZYRTEC) 10 mg tablet 2018-01-10 00:00:00 Yes Non-seasonal allergic rhinitis due to fungal spores 10mg QD Take 1 tablet b y mouth daily. [facility] fluticasone-vilanterol (BREO ELLIPTA) 200-25 mcg/dose DsDv 2017-11-24 00:00:00 Yes Severe persistent extrinsic asthma with acute exacerbation Inhale by mouth. [facility] Levocetirizine (XYZAL) 5 mg tablet 2017-11-24 00:00:00 Yes Seasonal allergic rhinitis, unspecified trigger 5mg T beth 1 tablet by mouth every evening. [facility] cyclobenzaprine (FLEXERIL) 10 mg tablet 2017-07-25 00:00:00 Yes Cervical spondylolysis 10mg Take 1 tablet by nadege th nightly at bedtime as needed for Muscle Spasms. [facility] ibuprofen (MOTRIN) 800 mg tablet 2017-07-25 00:00:00 Yes Cervical spondylolysis 800mg Take 1 tablet by mouth every 8 h ours as needed for Pain. [facility] albuterol (VENTOLIN HFA,PROVENTIL HFA,PROAIR HFA) 90 mcg/act uation inhaler 2017-03-31 00:00:00 Yes Moderate persistent a sthma without complication 2{puff} Inhale 2 Puffs by mouth 4 times daily as needed for Wh eezing. [facility] fluticasone-salmeterol (ADVAIR DISKUS) 500-50 mcg/dose disku s inhaler 2017-03-31 00:00:00 Yes Moderate persistent a sthma without complication 1{puff} Q.5D Inhale 1 Puff by mouth 2 times daily. [facility] VIT#96/FERROUS FUM/FA ( VITAMIN W/IRON-FOLATE) 27 mg iron- 800 mcg Tab 2016-09-27 08:17:10 Yes 1{tbl} QD Christo e 1 tablet by mouth daily. [facility] fluticasone-sal[facility]ol (ADVAIR) 100-50 mcg/dose diskus inhal er 2016-09-27 08:17:10 Yes 1{puff} Inhale 1 p uff by mouth via inhaler every 12 (twelve) hours. [facility] cetirizine (ZYRTEC) 10 MG tablet 2016-09-27 08:17:10 Yes 10mg QD Take 10 mg by mouth daily. [facility] CICLESONIDE (ZETONNA NASAL) 2016-09-27 08:17:10 [facility]FOLIC [facility] ( OR) 2016-08-16 12:57:29 Yes Take by mouth. [facility] cetirizine (ZYRTEC) 10 mg tablet 2016-05-19 00:00:00 Yes Nose congestion 10mg QD Take 1 tablet by mouth daily. [facility] albuterol (PROAIR HFA) 90 mcg/actuation inhaler 2016-05-19 0 0:00:00 Yes Chest tightness 2{puff} Inhale 2 Puffs by mo uth 4 times daily as needed for Wheezing. [facility] calcipotriene (DOVONEX) 0.005 % topical cream 2016-04-08 00: 00:00 Yes Rash Q.5D Apply to affected area 2 times daily [facility] Aripiprazole (Abilify) 5 Mg TABLET Aripiprazole (Abilify) 5 Mg TABLET Yes 5 Daily [facility] Bentyl Bentyl Yes 10 Q8hprn [facility] Budesonide/Formoterol Fumarate (Symbicor t 160-4.5 Mcg Inhaler) 10.2 Gm HFA.AER.AD Budesonide/Formoterol Fumarate (Symbicor t 160-4.5 Mcg Inhaler) 10.2 Gm HFA.AER.AD Yes Twice A Day [facility] Duloxetine Hcl (Cymbalta) 60 Mg CAPSULE. Duloxetine Hcl (Cymbalta) 60 Mg CAPSULE. Yes 60 Daily [facility] Pregabalin (Lyrica) 225 Mg CAPSULE Pregabalin (Lyrica) 225 Mg CAPSULE Yes 450 Twice A Day [facility] Trazodone Hcl Trazodone Hcl Yes 50 Daily [facility] Immunizations Ordered Immunization Name Filled Immunization Name Date Status Comments Source Influenza, Injectable, Quadrivalent 2019-06-05 00:00:00 Co mpleted [facility] PPV 23 (Pneumococcal Polysaccharide 23 Valent) 2019-05 00:00:00 Completed [facility] Influenza Vaccine, Seasonal, Injectable 2017-03-21 00:00:0 0 Completed [facility] Tdap (Tetanus Toxoid, Reduced Diphtheria Toxoid And Acellular Pertussis, Absorbed) 2016-11-18 00:00:00 Completed [facility]alth Influenza Vaccine 2016-03-17 00:00:00 Completed [facility] Pneumococcal 13-valent conj 0.5 mL injection 2015-06-05 00 :00:00 Completed [facility] Influenza Vaccine 2015-04-04 00:00:00 Completed [facility] Vital Signs Vital Name Observation Time Observation Value Comments Source Systolic blood pressure 2019-11-23 04:15:00 112 mm[Hg] [facility] Diastolic blood pressure 2019-11-23 04:15:00 68 mm[Hg] [facility] Heart rate 2019-11-23 04:15:00 88 /min [facility] Respiratory rate 2019-11-23 04:15:00 18 /min [facility] Oxygen saturation in Arterial blood by Pulse oximetry 11-22 04:15:00 98 /min [facility] Body temperature 2019-11-23 03:00:00 37.06 Francisc[facility] Weight 2019-11-19 13:27:00 146 [lb_av] [facility] BMI (Body Mass Index) 2019-11-19 13:27:00 28.5 kg/m2 [facility] Body height 2019-10-16 13:43:00 152.4 cm [facility] Body weight 2019-10-16 13:43:00 73.392 kg [facility] BMI 2019-10-16 13:43:00 31.60 kg/m2 [facility] Body Temperature 2019-05-18 12:21:00 97.6 [degF] [facility] Procedures Procedure Date / Time Performed Performing Clinician Sourc e EGD BIOPSY SINGLE/MULTIPLE 2019-05-18 00:00:00 C [facility] US abdomen complete 2019-05-16 00:00:00 [facility] Computed tomography of abdomen and pelvis with contrast 2019 00:00:00 BRANDAN HERNANDEZ [facility] Plan of Care Planned Activity Planned Date Details Comments Source Future Scheduled Test 2019-11-24 00:00:00 INFLUENZA VACCINE [code = INFLUENZA VACCINE] Yonatan Whiteist Future Scheduled Test 2018-10-18 00:00:00 Screening for layla gnant neoplasm of cervix (procedure) [code = 232733846] [facility] Future Scheduled Test 2015-07-25 00:00:00 Screening for layla gnant neoplasm of cervix (procedure) [code = 971628235] [facility] Scheduled Test 2002 00:00:00 Screening for layla gnant neoplasm of cervix (procedure) [code = 354594866] Yonatan egan Instructions Fibromyalgia [facility] Encounters Start Date/Time End Date/Time Encounter Type Admission Type Attendi [facility] Facility Care Department Encounter ID Source 2019-11-19 13:30:00 2019-11-19 14:26:00 Departed Emergency Room [facility] [id number] [facility] 2019-10-05 00:00:00 2019-10-05 00:00:00 Outpatient [facility] [id number] [facility] 2019-09-07 07:06:27 2019-09-07 07:06:27 Outpatient [facility] [id number] [facility] 2019-09-03 06:50:43 2019-09-03 06:50:43 Outpatient [facility] [id number] [facility] 2019-08-16 00:00:00 2019-08-16 00:00:00 Outpatient [facility] [id number] [facility] 2019-08-10 07:14:59 2019-08-10 07:14:59 Outpatient [facility] [id number] [facility] 2019-07-06 14:49:00 2019-07-06 14:49:00 Outpatient [facility] [id number] [facility] 2019-07-03 00:00:00 2019-07-03 00:00:00 Outpatient [facility] [id number] [facility] 2019-06-22 00:00:00 2019-06-22 00:00:00 Outpatient [facility] [id number] [facility] 2019-06-22 00:00:00 2019-06-22 00:00:00 Outpatient [facility] [id number] [facility] 2019-06-05 10:52:08 2019-06-05 10:52:08 Outpatient [facility] [id number] [facility] 2019-05-18 08:33:00 2019-05-18 08:33:00 [facility] [id number] [facility] 2019-05-16 07:41:00 2019-05-16 07:41:00 Registered Clinic 3 SHAWN POMPA [facility] [id number] [facility] 2019-05-10 00:00:00 2019-05-10 00:00:00 Outpatient [facility] [id number] [facility] 2019-05-09 10:15:00 2019-05-09 15:46:00 Departed Emergency Room [address] [facility] [id number] [facility] 2019-05-04 11:55:46 2019-05-04 11:55:46 Outpatient [facility] [id number] [facility] 2019-05-02 00:00:00 2019-05-02 00:00:00 Outpatient [facility] [id number] [facility] 2019-04-30 00:00:00 2019-04-30 00:00:00 Outpatient [facility] [id number] [facility] 2019-04-20 12:37:00 2019-04-20 16:37:00 [facility] [id number] [facility] 2019-04-13 09:35:43 2019-04-13 09:35:43 Outpatient [facility] [id number] [facility] 2019-03-27 00:00:00 2019-03-27 00:00:00 Outpatient [facility] [id number] [facility] 2019-02-16 00:00:00 2019-02-16 00:00:00 Outpatient [facility] [id number] [facility] 2019-02-12 00:00:00 2019-02-12 00:00:00 Outpatient [facility] [id number] [facility] 2019-02-12 00:00:00 2019-02-12 00:00:00 Outpatient [facility] [id number] [facility] [facility]:00 2019-02-05 00:00:00 Outpatient [facility] [id number] [facility] 2019-01-26 10:45:58 2019-01-26 10:45:58 Outpatient [facility] [id number] [facility] 2019-01-22 13:31:35 2019-01-22 13:31:35 Outpatient [facility] [id number] [facility] 2019-01-15 15:10:38 2019-01-15 15:10:38 Outpatient [facility] [id number] [facility] 2019-01-15 13:45:01 2019-01-15 13:45:01 Outpatient [facility] [id number] [facility] 2019-01-08 13:31:03 2019-01-08 13:31:03 Outpatient [facility] [id number] [facility] 2018-12-29 08:51:55 2018-12-29 08:51:55 Outpatient [facility] [id number] [facility] 2018-12-18 14:58:31 2018-12-18 14:58:31 Outpatient [facility] [id number] [facility] 2018-12-15 00:00:00 2018-12-15 00:00:00 Outpatient [facility] [id number] [facility] 2018-12-11 11:24:00 2018-12-11 11:45:00 Departed Emergency Room [facility] [id number] [facility] 2018-12-11 00:00:00 2018-12-11 00:00:00 Outpatient [facility] [id number] [facility] 2018-12-04 00:00:00 2018-12-04 00:00:00 Outpatient [facility] [id number] [facility] 2018-11-20 13:27:58 2018-11-20 13:27:58 Outpatient [facility] [id number] [facility] 2018-11-17 08:54:41 2018-11-17 08:54:41 Outpatient [facility] [id number] [facility] 2018-11-17 00:00:00 2018-11-17 00:00:00 Outpatient [facility] [id number] [facility] 2018-11-13 00:00:00 2018-11-13 00:00:00 Outpatient [facility] [id number] [facility] 2018-10-30 13:24:41 2018-10-30 13:24:41 Outpatient [facility] [id number] [facility] 2018-10-22 04:32:49 2018-10-22 04:32:49 Emergency [facility] [id number] [facility] 2018-10-16 14:41:29 2018-10-16 14:41:29 Outpatient [facility] [id number] [facility] 2018-10-13 10:11:48 2018-10-13 10:11:48 Outpatient [facility] [id number] [facility] 2018-10-09 10:30:52 2018-10-09 10:30:52 Outpatient [facility] [id number] [facility] 2018-10-02 10:42:31 2018-10-02 10:42:31 Outpatient [facility] [id number] [facility] 2018-09-25 09:08:50 2018-09-25 09:08:50 Outpatient [facility] [id number] [facility] 2018-09-01 00:00:00 2018-09-01 00:00:00 Outpatient [facility] [id number] [facility] 2018-08-21 00:00:00 2018-08-21 00:00:00 Outpatient [facility] [id number] [facility] 2018-07-21 08:08:28 2018-07-21 08:08:28 Outpatient [facility] [id number] [facility] 2018-06-23 00:00:00 2018-06-23 00:00:00 Outpatient [facility] [id number] [facility] 2018-06-19 00:00:00 2018-06-19 00:00:00 Outpatient [facility] [id number] [facility] 2018-05-05 00:00:00 2018-05-05 00:00:00 Outpatient [facility] [id number] [facility] 2018-04-24 00:00:00 2018-04-24 00:00:00 Outpatient [facility] [id number] [facility] 2018-04-10 11:03:14 2018-04-10 11:03:14 Outpatient [facility] [id number] [facility] 2018-03-31 08:08:40 2018-03-31 08:08:40 Outpatient [facility] [id number] [facility] 2018-03-27 11:37:53 2018-03-27 11:37:53 Outpatient [facility] [id number] [facility] 2018-03-13 00:00:00 2018-03-13 00:00:00 Outpatient [facility] [id number] [facility] 2018-02-24 00:00:00 2018-02-24 00:00:00 Outpatient [facility] [id number] [facility] 2018-02-22 09:01:08 2018-02-22 09:01:08 Outpatient [facility] [id number] [facility] 2018-02-15 00:00:00 2018-02-15 00:00:00 Outpatient [facility] [id number] [facility] 2018-02-14 00:00:00 2018-02-14 00:00:00 Outpatient [facility] [id number] [facility] 2018-02-10 00:00:00 2018-02-10 00:00:00 Outpatient [facility] [id number] [facility] 2018-02-08 09:41:49 2018-02-08 09:41:49 Outpatient [facility] [id number] [facility] 2018-01-27 08:26:28 2018-01-27 08:26:28 Outpatient [facility] [id number] [facility] 2018-01-25 10:21:39 2018-01-25 10:21:39 Outpatient [facility] [id number] [facility] 2018-01-25 00:00:00 2018-01-25 00:00:00 Outpatient [facility] [id number] [facility] 2018-01-13 11:45:53 2018-01-13 11:45:53 Outpatient [facility] [id number] [facility] 2018-01-13 09:28:40 2018-01-13 09:28:40 Outpatient [facility] [id number] [facility] 2018-01-11 09:51:03 2018-01-11 09:51:03 Outpatient [facility] [id number] [facility] 2018-01-10 00:00:00 2018-01-10 00:00:00 Outpatient [facility] [id number] [facility] 2017-12-23 13:13:07 2017-12-23 13:13:07 Outpatient [facility] [id number] [facility] 2017-12-23 09:23:06 2017-12-23 09:23:06 Outpatient [facility] [id number] [facility] 2017-12-16 09:48:20 2017-12-16 09:48:20 Outpatient [facility] [id number] [facility] 2017-12-16 07:59:31 2017-12-16 07:59:31 Outpatient [facility] [id number] [facility] 2017-12-16 00:00:00 2017-12-16 00:00:00 Outpatient [facility] [id number] [facility] 2017-11-24 09:55:10 2017-11-24 09:55:10 Outpatient [facility] [id number] [facility] 2017-11-03 00:00:00 2017-11-03 00:00:00 Outpatient [facility] [id number] [facility] 2017-11-02 00:00:00 2017-11-02 00:00:00 Outpatient [facility] [id number] [facility] 2017-10-18 15:14:39 2017-10-18 15:14:39 Outpatient [facility] [id number] [facility] 2017-10-18 00:00:00 2017-10-18 00:00:00 Outpatient [facility] [id number] [facility] 2017-10-14 10:07:03 2017-10-14 10:07:03 Outpatient [facility] [id number] [facility] 2017-10-06 09:41:27 2017-10-06 09:41:27 Outpatient [facility] [id number] [facility] 2017-09-20 08:48:01 2017-09-20 08:48:01 Emergency [facility] [id number] [facility] 2017-08-31 09:40:00 2017-08-31 12:40:00 Departed Emergency Room 1 MACY GOMEZ [facility] [id number] [facility] 2017-08-24 00:00:00 2017-08-24 00:00:00 Outpatient [facility] [id number] [facility] 2017-07-25 09:37:45 2017-07-25 09:37:45 Outpatient [facility] [id number] [facility] 2017-06-30 00:00:00 2017-06-30 00:00:00 Outpatient [facility] [id number] [facility] 2017-06-17 10:19:36 2017-06-17 10:19:36 Outpatient [facility] [id number] [facility] 2017-05-17 09:57:51 2017-05-17 09:57:51 Outpatient [facility] [id number] [facility] 2017-03-31 15:07:35 2017-03-31 15:07:35 Outpatient [facility] [id number] [facility] 2017-03-21 14:06:47 2017-03-21 14:06:47 Outpatient [facility] [id number] [facility] 2017-03-21 11:27:59 2017-03-21 11:27:59 Outpatient [facility] [id number] [facility] 2017-03-21 10:25:46 2017-03-21 10:25:46 Outpatient [facility] [id number] [facility] 2016-11-18 09:13:57 2016-11-18 09:13:57 Outpatient [facility] [id number] [facility] 2016-10-19 00:00:00 2016-10-19 00:00:00 Outpatient [facility] [id number] [facility] 2016-10-05 00:00:00 2016-10-05 00:00:00 Outpatient [facility] [id number] [facility] 2016-09-24 08:37:12 2016-09-24 08:37:12 Outpatient [facility] [id number] [facility] 2016-09-23 00:00:00 2016-09-23 00:00:00 Outpatient [facility] [id number] [facility] 2016-09-14 10:50:10 2016-09-14 10:50:10 Outpatient [facility] [id number] [facility] 2016-09-09 14:50:18 2016-09-09 14:50:18 Outpatient [facility] [id number] [facility] 2015-03-04 15:32:05 2015-03-04 15:32:05 Outpatient [facility] [id number] [facility] 2015-03-04 12:46:48 2015-03-04 12:46:48 Emergency [facility] [id number] [facility] 2014-11-02 13:50:03 2014-11-02 13:50:03 Emergency [facility] [id number] [facility] 2014-11-02 12:56:42 2014-11-02 12:56:42 Emergency [facility] [id number] [facility] Results Test Description Test Time Test Comments Results Result Comments Source CT CHEST W 2020-02-26 03:17:00 [facility] CENTERName: CLAUDE CHRISTIAN : 1980 Sex: F [place] [address] Patient Name: CLAUDE CHRISTIAN MR #: [id number] : 1980 Age/Sex: 39/F Req #: [id number] [facility] Physician: Ordered by: BRANDAN NOBLE DO Report #: [id number] Location: ER Room/Bed: Procedure: [id number] CT/CT CHEST W Exam Date: 02/26/20 Exam Time: 244 REPORT STATUS: Signed EXAM: CT Chest WITH contrast (PE Protocol) INDICATION: Y CP [id number] COMPARISON: Same day chest x-ray TECHNIQUE: Chest was scanned utilizing a multidetector helical scanner from the lung apex through the level of the diaphragm after administration of IV contrast. Thin section reconstructions were obtained with special concentration on the pulmonary arteries. Coronal and sagittal reformations were obtained. Dose modulation, iterative reconstruction, and/or weight based adjustment of the mA/kV was utilized to reduce the radiation dose to as low as reasonably achievable. Pulmonary embolism protocol was performed. IV CONTRAST: 100 mL of Isovue-370 COMPLICATIONS: None RADIATION DOSE: Total DLP: 420.75 mGy*cm Estimated effective dose: (DLP x 0.014 x size factor) mSv CTDIvol has been reviewed. It is below the limits set by the Radiation Protocol Committee (RPC). FINDINGS: LINES/ TUBES: None. LUNGS AND AIRWAYS: No filling defect is identified within the pulmonary arteries to the segmental level. Right basilar linear opacity with traction bronchiectasis, likely due to scarring. Airways are normal. PLEURA: The pleural spaces are clear. HEART AND MEDIASTINUM: The thyroid gland is normal. No mediastinal, hilar or axillary lymphadenopathy. The heart is normal in size.. There is no pericardial effusion. . Main pulmonary artery measures 2.5 cm in diameter. UPPER ABDOMEN: Cholecystectomy. Mild central pneumobilia. BONES: The visualized bony thorax is within normal limits. SOFT TISSUES: Unremarkable. IMPRESSION: No pulmonary emboli. Signed by: Dr. Carmelo Acevedo MD on 02/26/2020 3:43 AM Dictated By: CARMELO ACEVEDO MD 2 Transcribed By: DAPHNE on 02/26/20342 COPY TO: BRANDAN NOBLE DO CHEST SINGLE (PORTABLE) 2020-02-26 01:03:00 [facility] CENTERName: CLAUDE CHRISTIAN : 1980 Sex: F [place] [address] Patient Name: CLAUDE CHRISTIAN MR #: [id number] : 1980 Age/Sex: 39/F Req #: [id number] [facility] Physician: Ordered by: BRANDAN NOBLE DO Report #: [id number] Location: ER Room/Bed: Procedure: [id number] DX/CHEST SINGLE (PORTABLE) Exam Date: 02/26/20 Exam Time: 24 REPORT STATUS: Signed EXAMINATION: CHEST SINGLE (P ORTABLE) INDICATION: Y ERMD ORDER [id number] Y COMPARISON: None FINDINGS: AP view TUBES and LINES: None. LUNGS: Lungs are well inflated. There is no evidence of pneumonia or pulmonary edema. PLEURA: No pleural effusion or pneumothorax. HEART AND MEDIASTINUM: The cardiomediastinal silhouette is unremarkable. BONES AND SOFT TISSUES: No acute osseous lesion. Soft tissues are unremarkable. UPPER ABDOMEN: No free air under the diaphragm. IMPRESSION: No acute thoracic abnormality. Signed by: Dr. Carmelo Acevedo MD on 02/26/2020 1:04 AM Dictated By: CARMELO ACEVEDO MD 3 Transcribed By: DAPHNE on 02/26/20103 COPY TO: BRANDAN NOBLE DO Urine human chorionic gonadotropin (hCG) detection 2019-04-26 08:50:00 Test Item Urine Test (test code = 2106-3) NEGATIVE NEGATIVE [facility] [id number] 10:08:00 [facility] [address] [place] [address] Patient Name: CLAUDE CHRISTIAN MR #: [id number] : 1980 Age/Sex: 38/F Req #: [id number] Adm Physician: Ordered by: SHAWN POMPA MD Report #: [id number] Location: Room/Bed: Procedure: [id number] US/US ABDOMEN COMPLETE Exam Date: 05/16/19 Exam Ti me: 0922 REPORT STATUS: Signed Abdominal ultrasound. History: Upper abdominal pain. Comparison: 05/09/2019. Discussion: Transverse and longitudinal images of the abdomen we re obtained demonstrating a liver of normal size but diffusely increased echog enicity measuring 14.0 cm in length. The portal vein is patent with hepatopet al flow and is within normal limits measuring 8 mm in diameter. The biliary tree is within normal limits with the common bile duct measuring 3 mm in diameter. The gallbladder is absent. The kidneys are n ormal in size and echogenicity bilaterally without evidence of hydronephrosis, stones, or mass. The right kidney measures 9.1 cm and the left kidney measures 9.5 cm in length. The spleen is normal in size and appearance measuring 8.5 cm in length. The pancreatic head and body are visualized and are normal in appearance. The abdominal aorta and IVC are within normal limits. There is no evidence of free fluid. IMPRESSION: 1. Diffuse fatty infiltr ation of the liver without focal hepatic abnormality. 2. Status post cholecyst ectomy. Otherwise unremarkable abdominal ultrasound. Signed by: Brandan chen on 05/16/2019 10:10 AM Dictated By: BRANDAN MILLER MD Electronically Si gned By: BRANDAN MILLER MD on 05/16/19 1010 Transcribed By: DAPHNE on 05/16/19 1010 COPY TO: SHAWN POMPA MD CT ABDOMEN/PELVIS [id number] 14:28:00 [place] [address] Patient Name: CLAUDE CHRISTIAN MR #: [id number] : 1980 Age/Sex: 38/F Req #: [id number] Adm Physician: Ordered by: BRANDAN HERNANDEZ PROGRAM ADVISOR Report #: [id number] Location: ER Room/Bed: Procedure: CT/CT ABDOMEN/PELVIS W Exam Date: 05/09/19 Exam T joyce: 1320 REPORT STATUS: Signed EXAM: CT Abdomen and Pelvis WITH intravenous contrast INDICATION: Abdomin al pain COMPARISON: None. TECHNIQUE: Abdomen and pelvis were scanned u tilizing a multidetector helical scanner from the lung base to the pubic symph ysis after administration of IV contrast. Coronal and sagittal reformations we re obtained. Routine protocol was performed. Scan was performed during portal venous phase. IV CONTRAST: 100mL of Isovue 370 ORAL CONTRAST: Water RADIATION DOSE: Total DLP: 510.8 mGy*cm Dose modulation, iterative reconstruction, and/or weight based adjustment of the mA/kV was utilized to re duce the radiation dose to as low as reasonably achievable. FINDINGS: LOWER THORAX: Normal. HEPATOBILIARY: Diffuse hepatic steatosis. No focal li charlie lesion. No biliary ductal dilation. Status post cholecystectomy. SPLE EN: No splenomegaly. PANCREAS: No focal masses or ductal dilatation. A DRENALS: No adrenal nodules. KIDNEYS/URETERS: No hydronephrosis, stones, or so lid mass lesions. PELVIC ORGANS/BLADDER: Unremarkable. PERITONEUM / RETRO PERITONEUM: No free air or fluid. LYMPH NODES: No lymphadenopathy. VESSELS: Unremarkable. GI TRACT: No distention or wall thickening. Normal appendix. BONES AND SOFT TISSUES: Unremarkable. IMPRESSION: No acute findings in the abdomen or pelvis. Diffuse hepatic steatosis. Signed by: Bill Walker MD on 05/09/2019 2:31 PM Dictated By: ELISE WALKER MD 1431 Transcribed By: DAPHNE on 05/09/19 1431 COPY TO: BRANDAN HERNANDEZ NP Sodium Paimt0681-94-95 12:38:00 * Test Item Value Reference Range Interpretation Comments Sodium Level (test code = 2951-2) 140 136-145 [facility] Gxuia1996-89-46 12:38:00* Test Item Value Reference Range Interpretation Comments Potassium Level (test code = 2823-3) 3.9 3.5-5.1 [facility] AliceChloride Rnezx8553-22-37 12:38:00* Test Item Value Reference Range Interpretation Comments Chloride Level (test code = 2075-0) 107 98-107 [facility] AliceCarbon Dioxide Twogj1445-71-69 12:38:00* Test Item Value Reference Range Interpretation Comments Carbon Dioxide Level (test code = 2028-9) 23 22-29 [facility] AliceAnion Obk4564-93-10 12:38:00* Test Item Value Reference Range Interpretation Comments Anion Gap (test code = 88875-6) 13.9 8-16 [facility] AliceBlood Urea Mrinfniv7197-76-06 12:38:00* Test Item Value Reference Range Interpretation Comments Blood Urea Nitrogen (test code = 3094-0) 8 7-26 [facility] AliceCreatinine2020-01-15 12:38:00* Test Item Value Reference Range Interpretation Comments Creatinine (test code = 2160-0) 0.75 0.57-1.11 [facility] AliceBUN/Creatinine Soyhx3665-96-39 12:38:00* Test Item Value Reference Range Interpretation Comments BUN/Creatinine Ratio (test code = 3097-3) 11 - [facility] AliceEstimat Glomerular Filtration Rate 2019-05-09 12:38:00* Test Item Value Reference Range Interpretation Comments Estimat Glomerular Filtration Rate (test code = 839036943) > 60 >60 Ranges were taken from the National Kidney Disease Education Program and the [facility] literature.Reference ranges:60 or greater: Ojvyjb00-86 ( for 3 consecutive months): Chronic kidney disease 15 or less: Kidney failureCHRISTUS Spohn Hospital AliceGlucose Hiuyt6589-15-46 12:38:00* Test Item Value Reference Range Interpretation Comments Glucose Level (test code = ZUI2693) 112 74-118 [facility] AliceCalcium Lwpvp9762-58-57 12:38:00* Test Item Value Reference Range Interpretation Comments Calcium Level (test code = 81555-7) 9.1 8.4-10.2 [facility] AliceTotal Plpfdmavq3339-16-26 12:38:00* Test Item Value Reference Range Interpretation Comments Total Bilirubin (test code = 1975-2) 0.4 0.2-1.2 [facility] AliceAspartate Amino Transf (AST/SGOT) 2019-05-09 12:38:00* Test Item Value Reference Range Interpretation Comments Aspartate Amino Transf (AST/SGOT) (test code = Aspartate Amino Transf (AST/SGOT)) 21 5-34 [facility] AliceAlanine Aminotransferase (ALT/SGPT) 2019-05-09 12:38:00* Test Item Value Reference Range Interpretation Comments Alanine Aminotransferase (ALT/SGPT) (test code = 1742-6) 22 0-55 [facility] AliceTotal Baunofg1681-42-50 12:38:00* Test Item Value Reference Range Interpretation Comments Total Protein (test code = 2885-2) 7.1 6.5-8.1 [facility] AliceAlbumin2020-01-15 12:38:00* Test Item Value Reference Range Interpretation Comments Albumin (test code = 1751-7) 3.8 3.5-5.0 [facility] AliceGlobulin2020-01-15 12:38:00* Test Item Value Reference Range Interpretation Comments Globulin (test code = 46370-2) 3.3 2.3-3.5 [facility] AliceAlbumin/Globulin Clbso5993-94-16 12:38:00 * Test Item Value Reference Range Interpretation Comments Albumin/Globulin Ratio (test code = 1759-0) 1.2 0.8-2.0 [facility] AliceAlkaline Vuajodqbvfm5547-76-47 12:38:00* Test Item Value Reference Range Interpretation Comments Alkaline Phosphatase (test code = 6768-6) 99 40-150 [facility] AliceLipase2020-01-15 12:38:00* Test Item Value Reference Range Interpretation Comments Lipase (test code = 3040-3) 20 8-78 [facility] AliceUrine LUF5300-81-60 12:20:00* Test Item Value Reference Range Interpretation Comments Urine WBC (test code = 5821-4) >50 0-5 H [facility] AliceUrine MDG8179-88-62 12:20:00* Test Item Value Reference Range Interpretation Comments Urine RBC (test code = 60181-5) >50 0-5 H [facility] AliceUrine Vujpmjqk9926-62-87 12:20:00* Test Item Value Reference Range Interpretation Comments Urine Bacteria (test code = 83810-8) MANY NONE H [facility] AliceUrine Epithelial Fwqzu3848-46-61 12:20:00 * Test Item Value Reference Range Interpretation Comments Urine Epithelial Cells (test code = 37321-1) MANY NONE [facility] AliceWhite Blood Pgyuo3818-80-94 12:12:00* Test Item Value Reference Range Interpretation Comments White Blood Count (test code = 6690-2) 8.88 4.8-10.8 [facility] AliceRed Blood Dwktq5314-14-39 12:12:00* Test Item Value Reference Range Interpretation Comments Red Blood Count (test code = 789-8) 4.14 3.6-5.1 [facility] AliceHemoglobin2020-01-15 12:12:00* Test Item Value Reference Range Interpretation Comments Hemoglobin (test code = 03542-4) 11.3 12.0-16.0 L [facility] AliceHematocrit2020-01-15 12:12:00* Test Item Value Reference Range Interpretation Comments Hematocrit (test code = 4544-3) 34.5 34.2-44.1 [facility] AliceMean Corpuscular Ywouns2647-14-25 12:12:00* Test Item Value Reference Range Interpretation Comments Mean Corpuscular Volume (test code = 787-2) 83.3 81-99 [facility] AliceMean Corpuscular Zfygjkdvwq6925-14-55 12:12:00* Test Item Value Reference Range Interpretation Comments Mean Corpuscular Hemoglobin (test code = 785-6) 27.3 28-32 L [facility] AliceMean Corpuscular Hemoglobin Concent 2019-05-09 12:12:00* Test Item Value Reference Range Interpretation Comments Mean Corpuscular Hemoglobin Concent (test code = 786-4) 32.8 31-35 [facility] AliceRed Cell Distribution Guhid4670-88-50 12:12:00* Test Item Value Reference Range Interpretation Comments Red Cell Distribution Width (test code = 49545-0) 15.5 11.7 -14.4 H [facility] AlicePlatelet Xyxvf2066-20-82 12:12:00* Test Item Value Reference Range Interpretation Comments Platelet Count (test code = 777-3) 463 140-360 H [facility] AliceNeutrophils (%) (Auto)2019-05-09 12:12:00 * Test Item Value Reference Range Interpretation Comments Neutrophils (%) (Auto) (test code = 35482-7) 68.7 38.7-80.0 [facility] AliceLymphocytes (%) (Auto)2019-05-09 12:12:00 * Test Item Value Reference Range Interpretation Comments Lymphocytes (%) (Auto) (test code = 736-9) 19.8 18.0-39.1 [facility] AliceMonocytes (%) (Auto)2019-05-09 12:12:00* Test Item Value Reference Range Interpretation Comments Monocytes (%) (Auto) (test code = 5905-5) 8.3 4.4-11.3 [facility] AliceEosinophils (%) (Auto)2019-05-09 12:12:00 * Test Item Value Reference Range Interpretation Comments Eosinophils (%) (Auto) (test code = 713-8) 2.4 0.0-6.0 [facility] AliceBasophils (%) (Auto)2019-05-09 12:12:00* Test Item Value Reference Range Interpretation Comments Basophils (%) (Auto) (test code = 706-2) 0.3 0.0-1.0 [facility] AliceIM GRANULOCYTES %2019-05-09 12:12:00* Test Item Value Reference Range Interpretation Comments IM GRANULOCYTES % (test code = IM GRANULOCYTES %) 0.5 0.0- 1.0 [facility] AliceNeutrophils # (Auto)2019-05-09 12:12:00* Test Item Value Reference Range Interpretation Comments Neutrophils # (Auto) (test code = 751-8) 6.1 2.1-6.9 [facility] AliceLymphocytes # (Auto)2019-05-09 12:12:00* Test Item Value Reference Range Interpretation Comments Lymphocytes # (Auto) (test code = 02394-0) 1.8 1.0-3.2 [facility] AliceMonocytes # (Auto)2019-05-09 12:12:00* Test Item Value Reference Range Interpretation Comments Monocytes # (Auto) (test code = 742-7) 0.7 0.2-0.8 [facility] AliceEosinophils # (Auto)2019-05-09 12:12:00* Test Item Value Reference Range Interpretation Comments Eosinophils # (Auto) (test code = 711-2) 0.2 0.0-0.4 [facility] AliceBasophils # (Auto)2019-05-09 12:12:00* Test Item Value Reference Range Interpretation Comments Basophils # (Auto) (test code = 704-7) 0.0 0.0-0.1 [facility] AliceAbsolute Immature Granulocyte (auto 2019-05-09 12:12:00* Test Item Value Reference Range Interpretation Comments Absolute Immature Granulocyte (auto (joy t code = Absolute Immature Granulocyte (auto) 0.04 0-0.1 [facility] AliceUrine Fzxcy4841-71-69 12:11:00* Test Item Value Reference Range Interpretation Comments Urine Color (test code = 5778-6) YELLOW YELLOW [facility] AliceUrine Wsughgd1126-46-29 12:11:00* Test Item Value Reference Range Interpretation Comments Urine Clarity (test code = 60884-6) CLEAR CLEAR [facility] AliceUrine Specific Kvumefl9694-38-06 12:11:00 * Test Item Value Reference Range Interpretation Comments Urine Specific [place] (test code = 5811-5) 1.025 1.010-1.02 5 [facility] AliceUrine fB8988-04-82 12:11:00* Test Item Value Reference Range Interpretation Comments Urine pH (test code = 48149-3) 6.5 5-7 [facility] AliceUrine Leukocyte Omxiesmr5000-22-50 12:11:00* Test Item Value Reference Range Interpretation Comments Urine Leukocyte Esterase (test code = 5799-2) TRACE NEGATIVE H [facility] AliceUrine Mltmpya7110-95-30 12:11:00* Test Item Value Reference Range Interpretation Comments Urine Nitrite (test code = 11276-1) NEGATIVE NEGATIVE [facility] AliceUrine Gsgatlx2780-63-25 12:11:00* Test Item Value Reference Range Interpretation Comments Urine Protein (test code = 5804-0) NEGATIVE NEGATIVE [facility] AliceUrine Glucose (UA)2019-05-09 12:11:00* Test Item Value Reference Range Interpretation Comments Urine Glucose (UA) (test code = 2349-9) NEGATIVE NEGATIVE [facility] AliceUrine Ekkncnu0779-13-64 12:11:00* Test Item Value Reference Range Interpretation Comments Urine Ketones (test code = 44359-5) NEGATIVE NEGATIVE [facility] AliceUrine Ivxryuyddooj9340-47-01 12:11:00* Test Item Value Reference Range Interpretation Comments Urine Urobilinogen (test code = 84994-2) 0.2 0.2-1 [facility] AliceUrine Cozhmwcvl1253-40-94 12:11:00* Test Item Value Reference Range Interpretation Comments Urine Bilirubin (test code = 1978-6) NEGATIVE NEGATIVE [facility] AliceUrine Qifmc7526-90-14 12:11:00* Test Item Value Reference Range Interpretation Comments Urine Blood (test code = 93305-8) 1+ NEGATIVE [facility] AliceUrine Rbha9904-10-90 12:11:00* Test Item Value Reference Range Interpretation Comments Urine Test (test code = 2106-3) NEGATIVE NEGATIVE [facility] AliceBlood leukocytes automated count (number/volume)2019-05-09 10:20:00* Test Item Value Reference Range Interpretation Comments White Blood Count (test code = 6690-2) 8.88 4.8-10.8 [facility] AliceBlood erythrocytes automated count (number/volume)2019-05-09 10:20:00* Test Item Value Reference Range Interpretation Comments Red Blood Count (test code = 789-8) 4.14 3.6-5.1 [facility] AliceBlood hemoglobin measurement (moles/volume)2019-05-09 10:20:00* Test Item Value Reference Range Interpretation Comments Hemoglobin (test code = 15504-6) 11.3 12.0-16.0 [facility] AliceAutomated blood hematocrit (volume fraction)2019-05-09 10:20:00* Test Item Value Reference Range Interpretation Comments Hematocrit (test code = 4544-3) 34.5 34.2-44.1 [facility] AliceAutomated erythrocyte mean corpuscular aykdpj5800-15-26 10:20:00* Test Item Value Reference Range Interpretation Comments Mean Corpuscular Volume (test code = 787-2) 83.3 81-99 [facility] AliceAutomated erythrocyte mean corpuscular hemoglobin (mass per erythrocyte)2019-05-09 10:20:00* Test Item Value Reference Range Interpretation Comments Mean Corpuscular Hemoglobin (test code = 785-6) 27.3 28-32 [facility] AliceAutomated erythrocyte mean corpuscular hemoglobin concentration measurement (mass/volume)2019-05-09 10:20:00* Test Item Value Reference Range Interpretation Comments Mean Corpuscular Hemoglobin Concent (test code = 786-4) 32.8 31-35 [facility] AliceRDW RjvPl-Uxm5006-53-15 10:20:00* Test Item Value Reference Range Interpretation Comments Red Cell Distribution Width (test code = 18880-3) 15.5 11.7 -14.4 [facility] AliceAutomated blood platelet count (count/volume)2019-05-09 10:20:00* Test Item Value Reference Range Interpretation Comments Platelet Count (test code = 777-3) 463 140-360 [facility] AliceAutomated blood segmented neutrophil count as percentage of total jquoismpwe7296-85-57 10:20:00* Test Item Value Reference Range Interpretation Comments Neutrophils (%) (Auto) (test code = 26616-7) 68.7 38.7-80.0 [facility] AliceAutomated blood lymphocyte count as percentage ot total uoiirytght6243-65-03 10:20:00* Test Item Value Reference Range Interpretation Comments Lymphocytes (%) (Auto) (test code = 736-9) 19.8 18.0-39.1 [facility] AliceAutomated blood monocyte count as percentage of total lfewjglasn0254-63-74 10:20:00* Test Item Value Reference Range Interpretation Comments Monocytes (%) (Auto) (test code = 5905-5) 8.3 4.4-11.3 [facility] AliceAutomated blood eosinophil count as percentage of total qiuskunirc5598-43-80 10:20:00* Test Item Value Reference Range Interpretation Comments Eosinophils (%) (Auto) (test code = 713-8) 2.4 0.0-6.0 [facility] AliceAutomated blood basophil count as percentage of total aosrkdagzr1632-15-19 10:20:00* Test Item Value Reference Range Interpretation Comments Basophils (%) (Auto) (test code = 706-2) 0.3 0.0-1.0 [facility] AliceFluoroscopic procedure less than one hour vdgnnayv2641-62-62 10:20:00* Test Item Value Reference Range Interpretation Comments IM GRANULOCYTES % (test code = IM GRANULOCYTES %) 0.5 0.0- 1.0 [facility] AliceAutomated blood neutrophil count 2019-05-09 10:20:00* Test Item Value Reference Range Interpretation Comments Neutrophils # (Auto) (test code = 751-8) 6.1 2.1-6.9 [facility] AliceBlood lymphocytes count (number/volume) 2019-05-09 10:20:00* Test Item Value Reference Range Interpretation Comments Lymphocytes # (Auto) (test code = 17762-0) 1.8 1.0-3.2 [facility]Bl[facility] monocytes automated count (number/volume)2019-05-09 10:20:00* Test Item Value Reference Range Interpretation Comments Monocytes # (Auto) (test code = 742-7) 0.7 0.2-0.8 [facility] AliceAutomated blood eosinophil count 2019-05-09 10:20:00* Test Item Value Reference Range Interpretation Comments Eosinophils # (Auto) (test code = 711-2) 0.2 0.0-0.4 [facility] AliceAutomated blood basophil count (count/volume)2019-05-09 10:20:00* Test Item Value Reference Range Interpretation Comments Basophils # (Auto) (test code = 704-7) 0.0 0.0-0.1 [facility] AliceFluoroscopic procedure less than one hour bzitjuux9004-50-65 10:20:00* Test Item Value Reference Range Interpretation Comments Absolute Immature Granulocyte (auto (joy t code = Absolute Immature Granulocyte (auto) 0.04 0-0.1 [facility] AliceUrine color lbdcddrqhlnky1879-77-44 10:20:00* Test Item Value Reference Range Interpretation Comments Urine Color (test code = 5778-6) YELLOW YELLOW [facility] AliceUrine minpycb4547-80-25 10:20:00* Test Item Value Reference Range Interpretation Comments Urine Clarity (test code = 25154-6) CLEAR CLEAR [facility] Urine by Test strip 2019-05-09 10:20:00* Test Item Value Reference Range Interpretation Comments Urine Specific [place] (test code = 5811-5) 1.025 1.010-1.02 5 [facility] AliceUrine pH measurement by automated test dhfcw0928-78-33 10:20:00* Test Item Value Reference Range Interpretation Comments Urine pH (test code = 08839-0) 6.5 5-7 [facility] AliceUrine leukocyte esterase detection by ojokbimf0634-23-29 10:20:00* Test Item Value Reference Range Interpretation Comments Urine Leukocyte Esterase (test code = 5799-2) TRACE NEGATIVE [facility] AliceUrine nitrite akcvnjlxh3112-28-29 10:20:00* Test Item Value Reference Range Interpretation Comments Urine Nitrite (test code = 54809-4) NEGATIVE NEGATIVE [facility] AliceUrine protein measurement by test strip (mass/volume)2019-05-09 10:20:00* Test Item Value Reference Range Interpretation Comments Urine Protein (test code = 5804-0) NEGATIVE NEGATIVE [facility] AliceUrine glucose qzorgafek3110-83-54 10:20:00* Test Item Value Reference Range Interpretation Comments Urine Glucose (UA) (test code = 2349-9) NEGATIVE NEGATIVE [facility] AliceUrine ketones detection by automated test zkryl6215-13-20 10:20:00* Test Item Value Reference Range Interpretation Comments Urine Ketones (test code = 73424-3) NEGATIVE NEGATIVE [facility] AliceUrine urobilinogen measurement by test strip (mass/volume)2019-05-09 10:20:00* Test Item Value Reference Range Interpretation Comments Urine Urobilinogen (test code = 28964-6) 0.2 0.2-1 [facility] AliceUrine total bilirubin measurement (mass/volume)2019-05-09 10:20:00* Test Item Value Reference Range Interpretation Comments Urine Bilirubin (test code = 1978-6) NEGATIVE NEGATIVE [facility] AliceUrine erythrocytes yqwawqkpc5402-29-74 10:20:00* Test Item Value Reference Range Interpretation Comments Urine Blood (test code = 80387-2) 1+ NEGATIVE [facility] AliceAutomated urine sediment leukocyte count by microscopy (number/high power field)2019-05-09 10:20:00* Test Item Value Reference Range Interpretation Comments Urine WBC (test code = 5821-4) >50 0-5 [facility] AliceErythrocytes detection in urine sediment by light kzkyugxewi1459-01-88 10:20:00* Test Item Value Reference Range Interpretation Comments Urine RBC (test code = 10016-6) >50 0-5 [facility] AliceBacteria detection in urine sediment by light rwwblmthub8235-50-46 10:20:00* Test Item Value Reference Range Interpretation Comments Urine Bacteria (test code = 44898-8) MANY NONE [facility] AliceEpithelial cells detection in urine sediment by light hffrggmskp9576-25-82 10:20:00* Test Item Value Reference Range Interpretation Comments Urine Epithelial Cells (test code = 27528-1) MANY NONE [facility] or plasma sodium measurement (moles/volume)2019-05-09 10:20:00* Test Item Value Reference Range Interpretation Comments Sodium Level (test code = 2951-2) 140 136-145 [facility]ererum or plasma potassium measurement (moles/volume)2019-05-09 10:20:00* Test Item Value Reference Range Interpretation Comments Potassium Level (test code = 2823-3) 3.9 3.5-5.1 [facility] or plasma chloride measurement (moles/volume)2019-05-09 10:20:00* Test Item Value Reference Range Interpretation Comments Chloride Level (test code = 2075-0) 107 98-107 [facility]rum or plasma carbon dioxide, total measurement (moles/volume)2019-05-09 10:20:00* Test Item Value Reference Range Interpretation Comments Carbon Dioxide Level (test code = 2028-9) 23 22-29 [facility] or plasma anion xli4137-44-59 10:20:00* Test Item Value Reference Range Interpretation Comments Anion Gap (test code = 13953-0) 13.9 8-16 [facility] or plasma urea nitrogen measurement (mass/volume)2019-05-09 10:20:00* Test Item Value Reference Range Interpretation Comments Blood Urea Nitrogen (test code = 3094-0) 8 7-26 [facility] or plasma creatinine measurement (mass/volume)2019-05-09 10:20:00* Test Item Value Reference Range Interpretation Comments Creatinine (test code = 2160-0) 0.75 0.57-1.11 [facility] or plasma urea nitrogen/creatinine mass qmiss9172-49-06 10:20:00* Test Item Value Reference Range Interpretation Comments BUN/Creatinine Ratio (test code = 3097-3) 11 6-25 [facility] AliceEstimated glomerular filtration rate (GFR) msmguwfkfzcho5917-15-89 10:20:00* Test Item Value Reference Range Interpretation Comments Estimat Glomerular Filtration Rate (test code = 308388736) > 60 >60 Ranges were taken from the National Kidney Disease Education Program and the [facility] literature.Reference ranges:60 or greater: Oqufou32-91 ( for 3 consecutive months): Chronic kidney disease 15 or less: Kidney failureCHRISTUS Spohn Hospital AliceGlucose jahgxulnehx1234-99-93 10:20:00* Test Item Value Reference Range Interpretation Comments Glucose Level (test code = YZM4575) 112 74-118 [facility] or plasma calcium measurement (mass/volume)2019-05-09 10:20:00* Test Item Value Reference Range Interpretation Comments Calcium Level (test code = 70165-2) 9.1 8.4-10.2 [facility] or plasma total bilirubin measurement (mass/volume)2019-05-09 10:20:00* Test Item Value Reference Range Interpretation Comments Total Bilirubin (test code = 1975-2) 0.4 0.2-1.2 [facility] AliceFluoroscopic procedure less than one hour ldbokrvc5555-31-76 10:20:00* Test Item Value Reference Range Interpretation Comments Aspartate Amino Transf (AST/SGOT) (test code = Aspartate Amino Transf (AST/SGOT)) 21 5-34 [facility]rum or plasma alanine aminotransferase measurement (enzymatic activity/volume)2019-05-09 10:20:00* Test Item Value Reference Range Interpretation Comments Alanine Aminotransferase (ALT/SGPT) (test code = 1742-6) 22 0-55 [facility] or plasma protein measurement (mass/volume)2019-05-09 10:20:00* Test Item Value Reference Range Interpretation Comments Total Protein (test code = 2885-2) 7.1 6.5-8.1 [facility] or plasma albumin measurement (mass/volume)2019-05-09 10:20:00* Test Item Value Reference Range Interpretation Comments Albumin (test code = 1751-7) 3.8 3.5-5.0 [facility] AlicePlasma globulin measurement (mass/volume) 2019-05-09 10:20:00* Test Item Value Reference Range Interpretation Comments Globulin (test code = 66764-6) 3.3 2.3-3.5 [facility] or plasma albumin/globulin mass qjwnu2095-19-92 10:20:00* Test Item Value Reference Range Interpretation Comments Albumin/Globulin Ratio (test code = 1759-0) 1.2 0.8-2.0 [facility] or plasma alkaline phosphatase measurement (enzymatic activity/volume)2019-05-09 10:20:00* Test Item Value Reference Range Interpretation Comments Alkaline Phosphatase (test code = 6768-6) 99 40-150 [facility]rum or plasma lipase measurement (enzymatic activity/volume)2019-05-09 10:20:00* Test Item Value Reference Range Interpretation Comments Lipase (test code = 3040-3) 20 8-78 [facility] AliceUrine Vdzgv8039-59-88 17:13:00* Test Item Value Reference Range Interpretation Comments Urine Color (test code = 5778-6) YELLOW YELLOW [facility] AliceUrine Ideymka4723-53-78 17:13:00* Test Item Value Reference Range Interpretation Comments Urine Clarity (test code = 32027-0) SL CLOUDY CLEAR [facility] AliceUrine Specific Ldctsfx7420-14-13 17:13:00 * Test Item Value Reference Range Interpretation Comments Urine Specific [place] (test code = 5811-5) 1.025 1.010-1.02 5 [facility] AliceUrine eB0329-58-34 17:13:00* Test Item Value Reference Range Interpretation Comments Urine pH (test code = 28109-8) 7 5-7 [facility] AliceUrine Leukocyte Txyfnyen6112-46-97 17:13:00* Test Item Value Reference Range Interpretation Comments Urine Leukocyte Esterase (test code = 24222-7) SMALL NEGATIV E [facility] AliceUrine Hcoxiof8956-86-96 17:13:00* Test Item Value Reference Range Interpretation Comments Urine Nitrite (test code = 57291-3) NEGATIVE NEGATIVE [facility] AliceUrine Kyrvrjd4143-20-90 17:13:00* Test Item Value Reference Range Interpretation Comments Urine Protein (test code = 80828-1) NEGATIVE NEGATIVE [facility] AliceUrine Glucose (UA)2019-04-20 17:13:00* Test Item Value Reference Range Interpretation Comments Urine Glucose (UA) (test code = 57091-1) NEGATIVE NEGATIVE [facility] AliceUrine Zgtwdqc6027-95-70 17:13:00* Test Item Value Reference Range Interpretation Comments Urine Ketones (test code = 36276-6) TRACE NEGATIVE H [facility] AliceUrine Wycsjposuihr6935-25-76 17:13:00* Test Item Value Reference Range Interpretation Comments Urine Urobilinogen (test code = 72408-8) 0.2 0.2-1 [facility] AliceUrine Jfhteohqv4084-72-49 17:13:00* Test Item Value Reference Range Interpretation Comments Urine Bilirubin (test code = 1977-8) NEGATIVE NEGATIVE [facility] AliceUrine Pdwsf3405-70-30 17:13:00* Test Item Value Reference Range Interpretation Comments Urine Blood (test code = 01589-1) NEGATIVE NEGATIVE [facility] AliceUrine WWG5736-30-14 17:13:00* Test Item Value Reference Range Interpretation Comments Urine WBC (test code = 5821-4) 6-10 0-5 H [facility] AliceUrine TSE2927-90-69 17:13:00* Test Item Value Reference Range Interpretation Comments Urine RBC (test code = 79189-2) NONE 0-5 [facility] AliceUrine Uanfjptf9373-32-09 17:13:00* Test Item Value Reference Range Interpretation Comments Urine Bacteria (test code = 90005-9) FEW NONE [facility] AliceUrine Epithelial Bsmwf9287-67-50 17:13:00 * Test Item Value Reference Range Interpretation Comments Urine Epithelial Cells (test code = 41466-9) FEW NONE [facility] AliceLipase2019-12-27 15:37:00* Test Item Value Reference Range Interpretation Comments Lipase (test code = 3040-3) 24 8-78 [facility] Centerodium Naxlj3197-54-54 15:36:00* Test Item Value Reference Range Interpretation Comments Sodium Level (test code = 2951-2) 140 136-145 [facility] AlicePotassium Qdzid7602-38-59 15:36:00* Test Item Value Reference Range Interpretation Comments Potassium Level (test code = 2823-3) 4.1 3.5-5.1 [facility] AliceChloride Vxwjw0933-53-96 15:36:00* Test Item Value Reference Range Interpretation Comments Chloride Level (test code = 2075-0) 103 98-107 [facility] AliceCarbon Dioxide Jshtn9007-73-57 15:36:00* Test Item Value Reference Range Interpretation Comments Carbon Dioxide Level (test code = 2028-9) 25 22-29 [facility] AliceAnion Nwd6315-10-86 15:36:00* Test Item Value Reference Range Interpretation Comments Anion Gap (test code = 96203-7) 16.1 8-16 H [facility] AliceBlood Urea Puiczpwf2310-82-07 15:36:00* Test Item Value Reference Range Interpretation Comments Blood Urea Nitrogen (test code = 3094-0) 9 7-26 [facility] AliceCreatinine2019-12-27 15:36:00* Test Item Value Reference Range Interpretation Comments Creatinine (test code = 2160-0) 0.72 0.57-1.11 [facility] AliceBUN/Creatinine Ybndg0848-34-81 15:36:00* Test Item Value Reference Range Interpretation Comments BUN/Creatinine Ratio (test code = 3097-3) 13 6-25 [facility] AliceEstimat Glomerular Filtration Rate 2019-04-20 15:36:00* Test Item Value Reference Range Interpretation Comments Estimat Glomerular Filtration Rate (test code = 503971619) > 60 >60 Ranges were taken from the National Kidney Disease Education Program and the [facility] literature.Reference ranges:60 or greater: Yqkfgv62-70 ( for 3 consecutive months): Chronic kidney disease 15 or less: Kidney failureCHRISTUS Spohn [facility] AliceGlucose Ohdvz1346-28-37 15:36:00* Test Item Value Reference Range Interpretation Comments Glucose Level (test code = IJE3038) 82 74-118 [facility] AliceCalcium Mgzxu5851-31-39 15:36:00* Test Item Value Reference Range Interpretation Comments Calcium Level (test code = 22867-4) 9.5 8.4-10.2 [facility] AliceTotal Avlwywtdb5746-92-40 15:36:00* Test Item Value Reference Range Interpretation Comments Total Bilirubin (test code = 1975-2) 0.3 0.2-1.2 [facility] AliceAspartate Amino Transf (AST/SGOT) 2019-04-20 15:36:00* Test Item Value Reference Range Interpretation Comments Aspartate Amino Transf (AST/SGOT) (test code = Aspartate Amino Transf (AST/SGOT)) 30 5-34 [facility] AliceAlanine Aminotransferase (ALT/SGPT) 2019-04-20 15:36:00* Test Item Value Reference Range Interpretation Comments Alanine Aminotransferase (ALT/SGPT) (test code = 1742-6) 24 0-55 [facility] AliceTotal Spapiex4478-20-06 15:36:00* Test Item Value Reference Range Interpretation Comments Total Protein (test code = 2885-2) 7.4 6.5-8.1 [facility] AliceAlbumin2019-12-27 15:36:00* Test Item Value Reference Range Interpretation Comments Albumin (test code = 1751-7) 3.7 3.5-5.0 [facility] AliceGlobulin2019-12-27 15:36:00* Test Item Value Reference Range Interpretation Comments Globulin (test code = 40316-9) 3.7 2.3-3.5 H [facility] AliceAlbumin/Globulin Cdzqf5132-66-12 15:36:00 * Test Item Value Reference Range Interpretation Comments Albumin/Globulin Ratio (test code = 1759-0) 1.0 0.8-2.0 [facility] AliceAlkaline Awqzczeawmm0836-97-88 15:36:00* Test Item Value Reference Range Interpretation Comments Alkaline Phosphatase (test code = 6768-6) 102 40-150 [facility] AliceWhite Blood Dzmqs2129-50-70 15:06:00* Test Item Value Reference Range Interpretation Comments White Blood Count (test code = 6690-2) 10.13 4.8-10.8 [facility] AliceRed Blood Xrnua9075-33-45 15:06:00* Test Item Value Reference Range Interpretation Comments Red Blood Count (test code = 789-8) 3.92 3.6-5.1 [facility] AliceHemoglobin2019-12-27 15:06:00* Test Item Value Reference Range Interpretation Comments Hemoglobin (test code = 24788-9) 10.9 12.0-16.0 L [facility] AliceHematocrit2019-12-27 15:06:00* Test Item Value Reference Range Interpretation Comments Hematocrit (test code = 4544-3) 33.0 34.2-44.1 L [facility] AliceMean Corpuscular Uujfct1705-26-98 15:06:00* Test Item Value Reference Range Interpretation Comments Mean Corpuscular Volume (test code = 787-2) 84.2 81-99 [facility] AliceMean Corpuscular Veesqdzwsd7013-10-68 15:06:00* Test Item Value Reference Range Interpretation Comments Mean Corpuscular Hemoglobin (test code = 785-6) 27.8 28-32 L [facility] AliceMean Corpuscular Hemoglobin Concent 2019-04-20 15:06:00* Test Item Value Reference Range Interpretation Comments Mean Corpuscular Hemoglobin Concent (test code = 786-4) 33.0 31-35 [facility] AliceRed Cell Distribution Vhrlo9556-40-74 15:06:00* Test Item Value Reference Range Interpretation Comments Red Cell Distribution Width (test code = 12233-4) 15.4 11.7 -14.4 H [facility] AlicePlatelet Vazxc6220-20-89 15:06:00* Test Item Value Reference Range Interpretation Comments Platelet Count (test code = 777-3) 418 140-360 H [facility] AliceNeutrophils (%) (Auto)2019-04-20 15:06:00 * Test Item Value Reference Range Interpretation Comments Neutrophils (%) (Auto) (test code = 11737-3) 75.0 38.7-80.0 [facility] AliceLymphocytes (%) (Auto)2019-04-20 15:06:00 * Test Item Value Reference Range Interpretation Comments Lymphocytes (%) (Auto) (test code = 736-9) 15.5 18.0-39.1 L [facility] AliceMonocytes (%) (Auto)2019-04-20 15:06:00* Test Item Value Reference Range Interpretation Comments Monocytes (%) (Auto) (test code = 5905-5) 6.4 4.4-11.3 [facility] ([facility])2019-04-20 15:06:00 * Test Item Value Reference Range Interpretation Comments Eosinophils (%) (Auto) (test code = 713-8) 2.4 0.0-6.0 [facility] Alice[facility]ophils (%) (Auto)2019-04-20 15:06:00* Test Item Value Reference Range Interpretation Comments Basophils (%) (Auto) (test code = 706-2) 0.2 0.0-1.0 [facility] Alice[facility]ULOC[facility]TES %2019-04-20 15:06:00* Test Item Value Reference Range Interpretation Comments IM GRANULOCYTES % (test code = IM GRANULOCYTES %) 0.5 0.0- 1.0 [facility] AliceNeutrophils # (Auto)2019-04-20 15:06:00* Test Item Value Reference Range Interpretation Comments Neutrophils # (Auto) (test code = 751-8) 7.6 2.1-6.9 H [facility] AliceLymphocytes # (Auto)2019-04-20 15:06:00* Test Item Value Reference Range Interpretation Comments Lymphocytes # (Auto) (test code = 88225-8) 1.6 1.0-3.2 [facility] AliceMonocytes # (Auto)2019-04-20 15:06:00* Test Item Value Reference Range Interpretation Comments Monocytes # (Auto) (test code = 742-7) 0.7 0.2-0.8 [facility]Eosinophils # (Auto)2019-04-20 15:06:00* Test Item Value Reference Range Interpretation Comments Eosinophils # (Auto) (test code = 711-2) 0.2 0.0-0.4 [facility] AliceBasophils # (Auto)2019-04-20 15:06:00* Test Item Value Reference Range Interpretation Comments Basophils # (Auto) (test code = 704-7) 0.0 0.0-0.1 [facility] AliceAbsolute Immature Granulocyte (auto 2019-04-20 15:06:00* Test Item Value Reference Range Interpretation Comments Absolute Immature Granulocyte (auto (joy t code = Absolute Immature Granulocyte (auto) 0.05 0-0.1 [facility] AliceCreatine Kinase [id number] 10:45:00* Test Item Value Reference Range Interpretation Comments Creatine Kinase MB (test code = 87690-5) 0.50 0-5.0 [facility] AliceTroponin M5415-61-27 10:45:00* Test Item Value Reference Range Interpretation Comments Troponin I (test code = LWE3734) -0.001 0-0.300 [facility] Plqcq2381-02-04 10:38:00* Test Item Value Reference Range Interpretation Comments Sodium Level (test code = 2951-2) 140 136-145 [facility] AlicePotassium Lyemg5932-45-54 10:38:00* Test Item Value Reference Range Interpretation Comments Potassium Level (test code = 2823-3) 3.9 3.5-5.1 [facility] AliceChloride Glesv8793-09-62 10:38:00* Test Item Value Reference Range Interpretation Comments Chloride Level (test code = 2075-0) 106 98-107 [facility] AliceCarbon Dioxide Owwbk1962-13-33 10:38:00* Test Item Value Reference Range Interpretation Comments Carbon Dioxide Level (test code = 2028-9) 26 22-29 [facility] AliceAnion Vvp3447-91-54 10:38:00* Test Item Value Reference Range Interpretation Comments Anion Gap (test code = 05089-0) 11.9 8-16 [facility] AliceBlood Urea Bwyoszhe3150-69-01 10:38:00* Test Item Value Reference Range Interpretation Comments Blood Urea Nitrogen (test code = 3094-0) 9 7-26 [facility] AliceCreatinine2018-05-09 10:38:00* Test Item Value Reference Range Interpretation Comments Creatinine (test code = 2160-0) 0.70 0.57-1.11 [facility] AliceBUN/Creatinine Xmjln8019-86-37 10:38:00* Test Item Value Reference Range Interpretation Comments BUN/Creatinine Ratio (test code = 3097-3) 13 6-25 [facility] AliceEstimat Glomerular Filtration Rate 2017-08-31 10:38:00* Test Item Value Reference Range Interpretation Comments Estimat Glomerular Filtration Rate (test code = 65601-4) 60- >60 Ranges were taken from the National Kidney Disease Education Program and the [facility] Foundation literature.Reference ranges:60 or greater: Dwmdyi41-67 ( for 3 consecutive months): Chronic kidney disease 15 or less: Kidney failureCHRISTUS Spohn Hospital AliceGlucose Zquln7308-83-80 10:38:00* Test Item Value Reference Range Interpretation Comments Glucose Level (test code = YQW5171) 94 74-118 [facility] AliceCalcium Bqwoz1223-74-94 10:38:00* Test Item Value Reference Range Interpretation Comments Calcium Level (test code = 95897-1) 10.1 8.4-10.2 [facility] AliceTotal Gynlsmeld9304-87-02 10:38:00* Test Item Value Reference Range Interpretation Comments Total Bilirubin (test code = 1975-2) 0.5 0.2-1.2 [facility] AliceAspartate Amino Transf (AST/SGOT) 2017-08-31 10:38:00* Test Item Value Reference Range Interpretation Comments Aspartate Amino Transf (AST/SGOT) (test code = Aspartate Amino Transf (AST/SGOT)) 17 5-34 [facility] AliceAlanine Aminotransferase (ALT/SGPT) 2017-08-31 10:38:00* Test Item Value Reference Range Interpretation Comments Alanine Aminotransferase (ALT/SGPT) (test code = 1742-6) 17 0-55 [facility] AliceTotal Gcvjkte5238-87-70 10:38:00* Test Item Value Reference Range Interpretation Comments Total Protein (test code = 2885-2) 8.2 6.5-8.1 H [facility] AliceAlbumin2018-05-09 10:38:00* Test Item Value Reference Range Interpretation Comments Albumin (test code = 1751-7) 4.1 3.5-5.0 [facility] AliceGlobulin2018-05-09 10:38:00* Test Item Value Reference Range Interpretation Comments Globulin (test code = 36536-1) 4.1 2.3-3.5 H [facility] AliceAlbumin/Globulin Tlpnz3103-75-71 10:38:00 * Test Item Value Reference Range Interpretation Comments Albumin/Globulin Ratio (test code = 1759-0) 1.0 0.8-2.0 [facility] AliceAlkaline Enaetjjaurl3853-85-11 10:38:00* Test Item Value Reference Range Interpretation Comments Alkaline Phosphatase (test code = 6768-6) 104 40-150 [facility] AliceCreatine Ixkfps4019-79-10 10:38:00* Test Item Value Reference Range Interpretation Comments Creatine Kinase (test code = 2157-6) 155 29-168 [facility] AliceD-Dimer Quantitative (PE/DVT)2017-08-31 10:30:00* Test Item Value Reference Range Interpretation Comments D-Dimer Quantitative (PE/DVT) (test code = 92940-9) 0.28 0. 00-0.45 As with all in vitro diagnostic tests, the test results should be interpreted by the physician in conjunction with clinical findings and other test results.Test results are reported in NEW D-dimer units(ug/mLFEU).[facility] AliceHuman Chorionic Gonadotropin, Wmon4970-85-92 10:29:00* Test Item Value Reference Range Interpretation Comments Human Chorionic Gonadotropin, Qual (test code = 2118-8) NEGATIVE NEGATIVE [facility] AliceWhite Blood Gxtqs7891-17-09 10:18:00* Test Item Value Reference Range Interpretation Comments White Blood Count (test code = 6690-2) 9.38 4.8-10.8 [facility] AliceRed Blood Umqog6704-08-03 10:18:00* Test Item Value Reference Range Interpretation Comments Red Blood Count (test code = 789-8) 4.39 3.6-5.1 [facility] AliceHemoglobin2018-05-09 10:18:00* Test Item Value Reference Range Interpretation Comments Hemoglobin (test code = 63269-4) 12.2 12.0-16.0 [facility] AliceHematocrit2018-05-09 10:18:00* Test Item Value Reference Range Interpretation Comments Hematocrit (test code = 4544-3) 36.7 34.2-44.1 [facility] AliceMean Corpuscular Lxgulb4463-10-15 10:18:00* Test Item Value Reference Range Interpretation Comments Mean Corpuscular Volume (test code = 787-2) 83.6 81-99 [facility] AliceMean Corpuscular Vhjfougazj3817-74-49 10:18:00* Test Item Value Reference Range Interpretation Comments Mean Corpuscular Hemoglobin (test code = 785-6) 27.8 28-32 L [facility] AliceMean Corpuscular Hemoglobin Concent 2017-08-31 10:18:00* Test Item Value Reference Range Interpretation Comments Mean Corpuscular Hemoglobin Concent (test code = 786-4) 33.2 31-35 [facility] AliceRed Cell Distribution Uplzw8956-89-36 10:18:00* Test Item Value Reference Range Interpretation Comments Red Cell Distribution Width (test code = 59159-9) 13.9 11.7 -14.4 [facility] AlicePlatelet Lydyk3835-98-48 10:18:00* Test Item Value Reference Range Interpretation Comments Platelet Count (test code = 777-3) 489 140-360 H [facility] AliceNeutrophils (%) (Auto)2017-08-31 10:18:00 * Test Item Value Reference Range Interpretation Comments Neutrophils (%) (Auto) (test code = 69142-0) 76.5 38.7-80.0 [facility] AliceLymphocytes (%) (Auto)2017-08-31 10:18:00 * Test Item Value Reference Range Interpretation Comments Lymphocytes (%) (Auto) (test code = 736-9) 13.3 18.0-39.1 L [facility] AliceMonocytes (%) (Auto)2017-08-31 10:18:00* Test Item Value Reference Range Interpretation Comments Monocytes (%) (Auto) (test code = 5905-5) 7.4 4.4-11.3 [facility] AliceEosinophils (%) (Auto)2017-08-31 10:18:00 * Test Item Value Reference Range Interpretation Comments Eosinophils (%) (Auto) (test code = 713-8) 2.1 0.0-6.0 [facility] AliceBasophils (%) (Auto)2017-08-31 10:18:00* Test Item Value Reference Range Interpretation Comments Basophils (%) (Auto) (test code = 706-2) 0.3 0.0-1.0 [facility] AliceIM GRANULOCYTES %2017-08-31 10:18:00* Test Item Value Reference Range Interpretation Comments IM GRANULOCYTES % (test code = IM GRANULOCYTES %) 0.4 0.0- 1.0 [facility] AliceNeutrophils # (Auto)2017-08-31 10:18:00* Test Item Value Reference Range Interpretation Comments Neutrophils # (Auto) (test code = 751-8) 7.2 2.1-6.9 H [facility] AliceLymphocytes # (Auto)2017-08-31 10:18:00* Test Item Value Reference Range Interpretation Comments Lymphocytes # (Auto) (test code = 02184-6) 1.3 1.0-3.2 [facility] AliceMonocytes # (Auto)2017-08-31 10:18:00* Test Item Value Reference Range Interpretation Comments Monocytes # (Auto) (test code = 742-7) 0.7 0.2-0.8 [facility] AliceEosinophils # (Auto)2017-08-31 10:18:00* Test Item Value Reference Range Interpretation Comments Eosinophils # (Auto) (test code = 711-2) 0.2 0.0-0.4 [facility] AliceBasophils # (Auto)2017-08-31 10:18:00* Test Item Value Reference Range Interpretation Comments Basophils # (Auto) (test code = 704-7) 0.0 0.0-0.1 [facility] AliceAbsolute Immature Granulocyte (auto 2017-08-31 10:18:00* Test Item Value Reference Range Interpretation Comments Absolute Immature Granulocyte (auto (joy t code = Absolute Immature Granulocyte (auto) 0.04 0-0.1 [facility] [address] [address] Patient Name: CLAUDE CHRISTIAN MR #: [id number] : 1980 Age/Sex: 36/F Req #: [id number] Adm Physician: Ordered by: BRANDAN HERNANDEZ PROGRAM ADVISOR Report #: [id number] Location: ER Room/Bed: Procedure: [id number] DX/CHEST 2 VIEWS Exam D ate: 08/31/17 Exam Time: 1150 REPORT STATUS: Si gned PROCEDURE: Frontal and lateral views of the chest. COMPARISON: N one. INDICATIONS: ASTHMA ATTACK FINDINGS: Lines/tubes: None . Lungs: The lungs are well inflated and clear. There is no evidence of pneumonia or pulmonary edema. Pleura: There is no pleural effusion or p neumothorax. Heart and mediastinum: The heart and the mediastinum are nor mal. Bones: No acute bony abnormality. IMPRESSION: 1. No ac [place] cardiopulmonary disease. Dictated by: Carmelo Acevedo M.D. on 8 at 12:15 Electronically approved by: Carmelo Acevedo M.D. on 08/31/2017 at 12:15 Dictated By: CARMELO ACEVEDO MD 1211 Transcribed By: TK on 08/31/17 1215 COPY TO: BRANDAN HERNANDEZ PROGRAM ADVISOR
--- OUTSIDE RECORDS SUMMARY | 2020-02-28 18:58 | XMS REPORT | Clinical Summary ---
Author Author [facility] Address Unknown Phone Unavailable Care Team Providers Care Elevator Constructor Helper Name Role Phone Cassia Kwong MD PCP Allergies Comments Active Allergy Reactions Severity Noted Date Codeine Hives Medium 09/13/2018 "get aggresgive." Morphine Other (See Medium 09/13/2018 Comments) Medications Not on file Active Problems Not on file Social History Date Tobacco Use Types Packs/Day Years Used Never Assessed Sex Assigned at Date Recorded Not on file Last Filed Vital Signs Not on file Plan of Treatment Health Maintenance Due Date Last Done Comments CERVICAL CANCER SCREENING 2002 INFLUENZA VACCINE 11/24/2019 Results Not on fileafter 02/25/2019 Insurance Type Payer Benefit Subscriber ID Effective Phone Address Plan / Dates Group HMO [employer] MEDICAID [employer] [id number] 2018-P RADHA LIRIANO Advance Directives For more information, please contact: [phone] 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
--- NOTE | 2020-02-28 19:00 | NUR ---
BEDSIDE SHIFT REPORT GIVEN TO THE EXPLOSIVE OPERATOR BOMB RN. PT DENIED FURTHER NEEDS. SITTER AND PT MOM AT BEDSIDE. PT IS WAITING FOR TRANSFER TO [facility].
--- OUTSIDE RECORDS SUMMARY | 2020-02-28 19:00 | XMS REPORT | Clinical Summary ---
Author Author [facility] Organization [facility] Address Unknown Phone Unavailable Care Team Providers Care Computed Tomography Technologist Name Role Phone Darci Alfredo MD PCP [...] spores Active fluticasone (FLONASE) 50 Use 2 [place] 16 g 5 1 mcg/actuation nasal in [...] ENCOUNTER--DISREGARD (Primary Dx) 11/26/2019 Telephonic Psychiatry Encounter Kim Boudreaux MD Fibromyalgia (Primary Dx) 11/22/2019 Emergency [...] Recorded COVID-19 Exposure Response 02/26/2020 2:14 PM PERSONNEL RESEARCH SCIENTIST In the last month, have you been [...] MD [address] [place] [address] 1st attempt @ 01:18PM (02/26/20) [...] Effective Phone Address Plan / Dates Group [facility] xxxxxxxxx 2019-3 [address] [facility] [id number] [place] [address] [facility] [employer] xxxxxxxxx 2018- [phone] [address] [facility] [address] Present [id number] [facility] [place], [place] [address]
--- OUTSIDE RECORDS SUMMARY | 2020-02-28 19:01 | XMS REPORT | Continuity of Care Document ---
Author Author [facility] t Organization [facility] Address [address] [place] [address] Phone Unavailable Care Team Providers Care Vice President Of Contracts Name Role Phone NONSTAFF PCP Unavailable BRANDAN NOBLE Attphys Unavailable Lexus CARLOS, Judy López Attphys Jaylin Oquendo Attphys Unavailable Juni CARLOS, N Darci Attphys Kanika CARLOS, T Kim Attphys Isaiah COSTA, Leatha Gonzales Attphys SHAWN POMPA Attphys Unavailable ALMA MANDUJANO Attphys Unavailable Shannan Ospina Attphys Unavailable JASONKulwinder HARRIS Attphys Unavailable Payers Payer Name Policy Type Policy Number Effective Date Expiration Date [facility] COMMUN ITY PLAN [id number], [place] [address] xxxxxxxxx 2019 00:00:00 2020 23:59:59 H [facility] [id number] 2017 00:00 :00 [facility] Problems Condition Name Condition Details Condition Category Status Onset Date Resolution Date Last Treatment Date Treating Clinician Comments Source Alcohol use disorder, mild, in sustained remission Alc ohol use disorder, mild, in sustained remission Disease Active 2018-01-25 00:00:00 [facility] Alcohol use disorder Alcohol use disorder Disease Active 00:00:00 [facility] 19 weeks gestation of 19 weeks [...] counseling[ ] 3rd Trimester HIV, CBC, GBS 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 Referred for colpo08/24/2016 Per patient had colpo on 08/23 @ [facility] and no biopsies were taken. Was told it was "normal". Will need pp pap smear [facility] UTI in , antepartum UTI in , antepartum Disease Active 2016-08-10 00:00:00 Overview: treated. SUSSY next visit08/24/2016 Still on antibiotics, UCx at next clinic visit09/14/[address] [facility] Rubella non-immune status, antepartum Rubella non-immune sta tus, antepartum Disease Active 2016-07-29 00:00:00 Overview: MMR [facility] Asthma Asthma Disease Active 2016-07-29 00:00:00 [...] continue cetirizine and zetonna for allergic rhinitis [facility] Generalized pain Problem Active [facility] Dysthymia Dysthymia Disease Active [facility] Depression Depression Disease Active arris [facility] Pain Pain Disease Active [facility] Fibromyalgia Fibromyalgia Disease Active [facility] History of Past Illness Condition Name Condition Details Condition Category Status Onset Date Resolution Date Last Treatment Date Treating Clinician Comments Source Elderly multigravida Elderly multigravida Disease Resolved 07-29 00:00:00 2019-07-07 00:00:00 2019-07-07 13:51:23 [facility] Allergies, Adverse Reactions, Alerts Allergy Name Allergy Type Status Severity Reaction(s) Onset Date Inacti ve Date Treating Clinician Comments Source Morphine Allergy to substance Active COMBATIVE 2019-05-17 00:00:00 [facility] Codeine Allergy to substance Active HIVES 2019-05-17 00:00:00 [facility] Codeine Propensity to adverse reactions to drug Active Hives 2018-09-13 00:00:00 Yonatan egan Morphine Propensity to adverse reactions to drug Active Other (See Comments) 2018-09-13 00:00:00 "get aggresgive." Yonatan Campbell ethodist Codeine Propensity to adverse reactions Active Rash 2016-09-27 0 0:00:00 [facility] Morphine Propensity to adverse reactions Active 2016-09 00:00:00 "Uncontrollable" [facility] Black Pepper Propensity to adverse reactions to drug Active Anaphylaxis, Itching 2015-10-29 00:00:00 [facility] buddy Capsaicin Propensity to adverse reactions to drug Active Anaphylaxis 2015-10-29 00:00:00 [place] Kamila Lorna Propensity to adverse reactions to drug Active Angioedema 2015-10-29 00:00:00 [facility] Paprika Propensity to adverse reactions to drug Active Hives, Itching 2015-10-29 00:00:00 [place] Kamila Zafirlukast Propensity to adverse reactions to drug Active Cough, Anxiety 2015-06-05 00:00:00 disoriented [place] Kamila whittaker Morphine Propensity to adverse reactions to drug Active Other 2015-03-04 00:00:00 [facility] Codeine Propensity to adverse reactions to drug Active 2014-11-02 00:00:00 [facility] Family History Family Member Diagnosis Comments Start Date Stop Date Source Maternal grandfather Cancer [facility] Maternal grandfather Heart [facility] Maternal grandmother Arthritis [facility] Maternal grandmother Hypertension [facility] Paternal grandmother Diabetes [facility] Social History Social Habit Start Date Stop Date Quantity Comments Source ASSERTION 2016-05-16 00:00:00 [facility] Sex Assigned [facility] Exposure to SARS-CoV-2 (event) Not sure [facility] Alcohol intake 2019-12-11 00:00:00 2019-12-11 00:00:00 Current drinker of alcohol (finding) [facility] History SDOH Food Worry 2017-11-24 00:00:00 2017-11-24 00:00:00 1 [facility] SDOH Food Scarcity 2017-11-24 00:00:00 2017-11-24 00:00:[address] [facility] Alcohol Comment 2016-07-27 00:00:00 2016-07-27 00:00:00 occasion ally but not while [facility] Smoking Status Start Date Stop Date Source Never smoker [facility] Medications Ordered Medication Name Filled Medication Name Start Date Stop Da te Current Medication? Ordering Clinician Indication Dosage Frequency Signature (SIG) Comments Components Source ARIPiprazole (ABILIFY) 10 mg tablet 2020-01-18 00:00:00 Yes Moderate episode of recurrent major depressive disorder 10mg QD Take 1 tablet by mouth daily. [facility] DULoxetine (CYMBALTA) 60 mg delayed release capsule 01-17 00:00:00 Yes Moderate episode of recurrent major depressive disorder 60mg QD Take 1 capsule by mouth daily For depression, fibromyalgia. [facility] traZODone (DESYREL) 100 mg tablet 2020-01-18 00:00:00 Yes Moderate episode of recurrent major depressive disorder 100mg T beth 1 tablet by mouth at bedtime nightly. [facility] ARIPiprazole (ABILIFY) 10 mg tablet 2019-12-21 00:00:0 0 2020-01-18 00:00:00 No Moderate episode of recurrent major depressive disorde r 10mg QD Take 1 tablet by mouth daily. [facility] DULoxetine (CYMBALTA) 60 mg delayed release capsule 2019-12-21 00:00:2020-01-18 00:00:00 No Moderate episode of recurrent major depressive disorder 60mg QD Take 1 capsule by mouth daily For depression, f ibromyalgia. [facility] traZODone (DESYREL) 100 mg tablet 2019-12-21 00:00:00 2019 00:00:00 No Moderate episode of recurrent major depressive disorder 100mg Take 1 tablet by mouth at bedtime nightly. [facility] clobetasoL (TEMOVATE) 0.05 % ointment 2019-12-11 00:00:00 Yes Psoriasis Q.5D Apply to affected area [address] [facility] hydrOXYzine (ATARAX) 25 mg tablet 2019-12-11 00:00:00 Yes Itch 25mg Take 1 tablet by mouth every 8 hours as needed for Itching. [facility] traMADoL (ULTRAM) 50 mg tablet 2019-11-23 00:00:00 Yes Fibromyalgia 50mg Take 1 tablet by mouth every 6 hours as needed for up to 10 dose s for Pain. [facility] ARIPiprazole (ABILIFY) 10 mg tablet 2019-10-16 00:00:0 0 2019-12-21 00:00:00 No Moderate episode of recurrent major depressive disorde r 10mg QD Take 1 tablet by mouth daily. [facility] DULoxetine (CYMBALTA) 60 mg delayed release capsule 2019-10-16 00:00:00 2019-12-21 00:00:00 No Moderate episode of recurrent major depressive disorder 60mg QD Take 1 capsule by mouth daily For depression, f ibromyalgia. [facility] traZODone (DESYREL) 100 mg tablet 2019-10-16 00:00:00 2019 00:00:00 No Moderate episode of recurrent major depressive disorder 100mg Take 1 tablet by mouth at bedtime nightly. [facility] ARIPiprazole (ABILIFY) 10 mg tablet 2019-09-07 00:00:0 0 2019-10-16 00:00:00 No Moderate episode of recurrent major depressive disorde r 10mg QD Take 1 tablet by mouth daily. [facility] DULoxetine (CYMBALTA) 60 mg delayed release capsule 2019-09-07 00:00:00 2019-10-16 00:00:00 No Moderate episode of recurrent major depressive disorder 60mg QD Take 1 capsule by mouth daily For depression, f ibromyalgia. [facility] traZODone (DESYREL) 50 mg tablet 2019-09-07 00:00:00 2019-09 00:00:00 No Moderate episode of recurrent major depressive disorder 50mg Take 1 tablet by mouth at bedtime nightly. [facility] celecoxib (CELEBREX) 100 mg capsule 2019-09-03 00:00:00 Yes Arthralgia, unspecified joint 100mg Q.5D Take 1 capsule by mouth [address] [facility] azithromycin (ZITHROMAX) 500 mg tablet 2019-08-24 1 00:00:00 2019-09-21 23:59:00 No Acute upper respiratory infection 500mg QD Take 1 tablet by mouth daily for [address] [facility] oseltamivir (TAMIFLU) 75 mg capsule 2019-09-03 00:00:0 0 2019-09-12 23:59:00 No Flu syndrome 75mg Q.5D Take 1 capsule by mouth 2 times michelle ly for [address] [facility] traZODone (DESYREL) 50 mg tablet 2019-08-10 00:00:00 2019-08 00:00:00 No Moderate episode of recurrent major depressive disorder 50mg Take 1 tablet by mouth at bedtime nightly. [facility] DULoxetine (CYMBALTA) 60 mg delayed release capsule 2019-08-10 00:00:00 2019-09-07 00:00:00 No Moderate episode of recurrent major depressive disorder 60mg QD Take 1 capsule by mouth daily For depression, f ibromyalgia. [facility] ARIPiprazole (ABILIFY) 10 mg tablet 2019-08-10 00:00:0 0 2019-09-07 00:00:00 No Moderate episode of recurrent major depressive disorde r 10mg QD Take 1 tablet by mouth daily. [facility] levonorgestrel-ethinyl estradiol (AVIANE) 0.1-20 mg-mcg tabl et 2019-07-06 00:00:00 Yes Encounter for initial prescr iption of contraceptive pills 1{tbl} QD Take 1 tablet by mouth daily. [facility] pregabalin (LYRICA) 200 mg capsule 2019-06-05 11:52:37 202 00:00:00 No 200mg Q.5D Take 200 mg by mouth [address] [facility] pregabalin (LYRICA) 200 mg capsule 2019-06-05 00:00:00 Yes Primary fibromyalgia syndrome 200mg Take 1 capsule by mouth [address] [facility] celecoxib (CELEBREX) 100 mg capsule 2019-06-05 00:00:0 0 2019-09-03 00:00:00 No Primary fibromyalgia syndrome 100mg Q.5D Take 1 capsule by mouth [address] [facility] amoxicillin (AMOXIL) 500 mg capsule 2019-06-05 00:00:0 0 2019-06-22 23:59:00 No Acute pharyngitis, unspecified etiology 500mg Take 1 capsule by mouth 3 times daily for [address] [facility] propranolol (INDERAL) 10 mg tablet 2019-05-04 00:00:00 Yes Moderate episode of recurrent major depressive disorder 10mg Q.5D Take 1 tablet by mouth [address] [facility] ARIPiprazole (ABILIFY) 10 mg tablet 2019-05-04 00:00:0 0 2019-08-10 00:00:00 No Moderate episode of recurrent major depressive disorde r 10mg QD Take 1 tablet by mouth daily. [facility] DULoxetine (CYMBALTA) 60 mg delayed release capsule 2019-05-04 00:00:00 2019-08-10 00:00:00 No Moderate episode of recurrent major depressive disorder 60mg QD Take 1 capsule by mouth daily For depression, f ibromyalgia. [facility] traZODone (DESYREL) 50 mg tablet 2019-05-04 00:00:00 2019-07 00:00:00 No Moderate episode of recurrent major depressive disorder 50mg Take 1 tablet by mouth at bedtime nightly. [facility] DULoxetine (CYMBALTA) 60 mg delayed release capsule 2019-04-13 00:00:00 2019-05-04 00:00:00 No Moderate episode of recurrent major depressive disorder 60mg QD Take 1 capsule by mouth daily For depression, f ibromyalgia. [facility] ARIPiprazole (ABILIFY) 10 mg tablet 2019-04-13 00:00:0 0 2019-05-04 00:00:00 No Moderate episode of recurrent major depressive disorde r 10mg QD Take 1 tablet by mouth daily. [facility] propranolol (INDERAL) 10 mg tablet 2019-04-13 00:00:00 202 00:00:00 No Moderate episode of recurrent major depressive disorder 10mg Take 1 tablet by mouth [address] [facility] DULoxetine (CYMBALTA) 60 mg delayed release capsule 2019-01-26 00:00:00 2019-04-13 00:00:00 No Moderate episode of recurrent major depressive disorder 60mg QD Take 1 capsule by mouth daily For depression, f ibromyalgia. [facility] propranolol (INDERAL) 10 mg tablet 2019-01-26 00:00:00 201 01-05-20 00:00:00 No Moderate episode of recurrent major depressive disorder 10mg Take 1 tablet by mouth [address] [facility] ARIPiprazole (ABILIFY) 10 mg tablet 2019-01-26 00:00:0 0 2019-04-13 00:00:00 No Moderate episode of recurrent major depressive disorde r 10mg QD Take 1 tablet by mouth daily. [facility] naproxen (NAPROSYN) 500 mg tablet 2019-01-15 00:00:00 Yes Acute pain of right knee 500mg Take 1 tablet by mouth 2 times daily (with meal s). [facility] naproxen (NAPROSYN) 500 mg tablet 2018-10-22 00:00:00 Yes Pain 500mg Take 1 tablet by mouth 2 times daily as needed for Pain (with food). [facility] fluticasone (FLONASE) 50 mcg/actuation nasal spray 2018-01 00:00:00 Yes Acute nonseasonal allergic rhinitis due to pollen 2{spray} QD Use 2 [place] in each nostril daily.. [facility] cetirizine (ZYRTEC) 10 mg tablet 2018-01-10 00:00:00 Yes Non-seasonal allergic rhinitis due to fungal spores 10mg QD Take 1 tablet b y mouth daily. [facility] fluticasone-vilanterol (BREO ELLIPTA) 200-25 mcg/dose DsDv 2017-11-24 00:00:00 Yes Severe persistent extrinsic asthma with acute exacerbation Inhale by mouth. [facility] Levocetirizine (XYZAL) 5 mg tablet 2017-11-24 00:00:00 Yes Seasonal allergic rhinitis, unspecified trigger 5mg T beth 1 tablet by mouth every evening. [facility] cyclobenzaprine (FLEXERIL) 10 mg tablet 2017-07-25 00:00:00 Yes Cervical spondylolysis 10mg Take 1 tablet by nadege th nightly at bedtime as needed for Muscle Spasms. [facility] ibuprofen (MOTRIN) 800 mg tablet 2017-07-25 00:00:00 Yes Cervical spondylolysis 800mg Take 1 tablet by mouth every 8 h ours as needed for Pain. [facility] albuterol (VENTOLIN HFA,PROVENTIL HFA,PROAIR HFA) 90 mcg/act uation inhaler 2017-03-31 00:00:00 Yes Moderate persistent a sthma without complication 2{puff} Inhale 2 Puffs by mouth 4 times daily as needed for Wh eezing. [facility] fluticasone-salmeterol (ADVAIR DISKUS) 500-50 mcg/dose disku s inhaler 2017-03-31 00:00:00 Yes Moderate persistent a sthma without complication 1{puff} Q.5D Inhale 1 Puff by mouth [address] [facility] VIT#96/FERROUS FUM/FA ( VITAMIN W/IRON-FOLATE) 27 mg iron- 800 mcg Tab 2016-09-27 08:17:10 Yes 1{tbl} QD Christo e 1 tablet by mouth daily. [facility] fluticasone-salmeterol (ADVAIR) 100-50 mcg/dose diskus inhal er 2016-09-27 08:17:10 Yes 1{puff} Inhale 1 p uff by mouth via inhaler every 12 (twelve) hours. [facility] cetirizine (ZYRTEC) 10 MG tablet 2016-09-27 08:17:10 Yes 10mg QD Take 10 mg by mouth daily. [facility] CICLESONIDE (ZETONNA NASAL) 2016-09-27 08:17:10 Yes [facility]ON FUM/FOLIC ACID ( OR) 2016-08-16 12:57:29 Yes Take by mouth. [facility] cetirizine (ZYRTEC) 10 mg tablet 2016-05-19 00:00:00 Yes Nose congestion 10mg QD Take 1 tablet by mouth daily. [facility] albuterol (PROAIR HFA) 90 mcg/actuation inhaler 2016-05-19 0 0:00:00 Yes Chest tightness 2{puff} Inhale 2 Puffs by mo uth 4 times daily as needed for Wheezing. [facility] calcipotriene (DOVONEX) 0.005 % topical cream 2016-04-08 00: 00:00 Yes Rash Q.5D Apply to affected area [address] [facility] Aripiprazole (Abilify) 5 Mg TABLET Aripiprazole (Abilify) 5 Mg TABLET Yes 5 Daily [facility] Bentyl Bentyl Yes 10 Q8hprn [facility] Budesonide/Formoterol Fumarate (Symbicor t 160-4.5 Mcg Inhaler) 10.2 Gm HFA.AER.AD Budesonide/Formoterol Fumarate (Symbicor t 160-4.5 Mcg Inhaler) 10.2 Gm HFA.AER.AD Yes Twice A Day [facility] Duloxetine Hcl (Cymbalta) 60 Mg CAPSULE. Duloxetine Hcl (Cymbalta) 60 Mg CAPSULE. Yes 60 Daily [facility] Pregabalin (Lyrica) 225 Mg CAPSULE Pregabalin (Lyrica) 225 Mg CAPSULE Yes 450 Twice A Day [facility] Trazodone Hcl Trazodone Hcl Yes 50 Daily [facility] Immunizations Ordered Immunization Name Filled Immunization Name Date Status Comments Source Influenza, Injectable, Quadrivalent 2019-06-05 00:00:[address] [facility] PPV 23 (Pneumococcal Polysaccharide 23 Valent) 2019-05 00:00:[address] [facility] Influenza Vaccine, Seasonal, Injectable 2017-03-21 00:00:[address] [facility] Tdap (Tetanus Toxoid, Reduced Diphtheria Toxoid And Acellular Pertussis, Absorbed) 2016-11-18 00:00:00 Completed [facility] Influenza Vaccine 2016-03-17 00:00:[address] [facility] Pneumococcal 13-valent conj 0.5 mL injection 2015-06-05 00 :00:[address] [facility] Influenza Vaccine 2015-04-04 00:00:[address] [facility] Vital Signs Vital Name Observation Time Observation Value Comments Source Systolic blood pressure 2019-11-23 04:15:00 112 mm[Hg] [facility] Diastolic blood pressure 2019-11-23 04:15:00 68 mm[Hg] [facility] Heart rate 2019-11-23 04:15:00 88 /min [facility] Respiratory rate 2019-11-23 04:15:00 18 /min [facility] Oxygen saturation in Arterial blood by Pulse oximetry 11-22 04:15:00 98 /min [facility] Body temperature 2019-11-23 03:00:00 37.06 [facility] Weight 2019-11-19 13:27:00 146 [lb_av] [facility] BMI (Body Mass Index) 2019-11-19 13:27:00 28.5 kg/m2 [facility] Body height 2019-10-16 13:43:00 152.4 cm [facility] Body weight 2019-10-16 13:43:00 73.392 kg [facility] BMI 2019-10-16 13:43:00 31.60 kg/m2 [facility] Body Temperature 2019-05-18 12:21:00 97.6 [degF] [facility] Procedures Procedure Date / Time Performed Performing Clinician Sourc e EGD BIOPSY SINGLE/MULTIPLE 2019-05-18 00:00:00 [facility] US abdomen complete 2019-05-16 00:00:00 [facility] Computed tomography of abdomen and pelvis with contrast 2019 00:00:00 BRANDAN HERNANDEZ [facility] Plan of Care Planned Activity Planned Date Details Comments Source Future Scheduled Test 2019-11-24 00:00:00 INFLUENZA VACCINE [code = INFLUENZA VACCINE] Yonatan Whiteist Future Scheduled Test 2018-10-18 00:00:00 Screening for layla gnant neoplasm of cervix (procedure) [code = 215107581] [facility] Future Scheduled Test 2015-07-25 00:00:00 Screening for layla gnant neoplasm of cervix (procedure) [code = 022620393] [facility] Scheduled Test 2002 00:00:00 Screening for layla gnant neoplasm of cervix (procedure) [code = 100742394] Yonatan egan Instructions Fibromyalgia [facility] Encounters Start Date/Time End Date/Time Encounter Type Admission Type [facility] Care Department Encounter ID Source 2019-11-19 13:30:00 2019-11-19 14:26:00 Departed Emergency Room [facility] [id number] [facility] 2019-10-05 00:00:00 2019-10-05 00:00:00 Outpatient [facility] [id number] [facility] 2019-09-07 07:06:27 2019-09-07 07:06:27 Outpatient [facility] [id number] [facility] 2019-09-03 06:50:43 2019-09-03 06:50:43 Outpatient [facility] [id number] [facility] 2019-08-16 00:00:00 2019-08-16 00:00:00 Outpatient [facility] [id number] [facility] 2019-08-10 07:14:59 2019-08-10 07:14:59 Outpatient [facility] [id number] [facility] 2019-07-06 14:49:00 2019-07-06 14:49:00 Outpatient [facility] [id number] [facility] 2019-07-03 00:00:00 2019-07-03 00:00:00 Outpatient [facility] [id number] [facility] 2019-06-22 00:00:00 2019-06-22 00:00:00 Outpatient [facility] [id number] [facility] 2019-06-22 00:00:00 2019-06-22 00:00:00 Outpatient [facility] [id number] [facility] 2019-06-05 10:52:08 2019-06-05 10:52:08 Outpatient [facility] [id number] [facility] 2019-05-18 08:33:00 2019-05-18 08:33:00 Registered [facility] [id number] [facility] 2019-05-16 07:41:00 2019-05-16 07:41:00 Registered Clinic 3 SHAWN POMPA [facility] [id number] [facility]. [facility] 2019-05-10 00:00:00 2019-05-10 00:00:00 Outpatient [facility] [id number] [facility] 2019-05-09 10:15:00 2019-05-09 15:46:00 Departed Emergency Room [address] [facility] [id number] [facility] 2019-05-04 11:55:46 2019-05-04 11:55:46 Outpatient [facility] [id number] [facility] 2019-05-02 00:00:00 2019-05-02 00:00:00 Outpatient [facility] [id number] [facility] 2019-04-30 00:00:00 2019-04-30 00:00:00 Outpatient [facility] [id number] [facility] 2019-04-20 12:37:00 2019-04-20 16:37:00 [facility] [id number] [facility] 2019-04-13 09:35:43 2019-04-13 09:35:43 Outpatient [facility] [id number] [facility] 2019-03-27 00:00:00 2019-03-27 00:00:00 Outpatient [facility] [id number] [facility] 2019-02-16 00:00:00 2019-02-16 00:00:00 Outpatient [facility] [id number] [facility] 2019-02-12 00:00:00 2019-02-12 00:00:00 Outpatient [facility] [id number] [facility] 2019-02-12 00:00:00 2019-02-12 00:00:00 Outpatient [facility] [id number] [facility] 2019-02-05 00:00:00 2019-02-05 00:00:00 Outpatient [facility] [id number] [facility] 2019-01-26 10:45:58 2019-01-26 10:45:58 Outpatient [facility] [id number] [facility] 2019-01-22 13:31:35 2019-01-22 13:31:35 Outpatient [facility] [id number] [facility] 2019-01-15 15:10:38 2019-01-15 15:10:38 Outpatient [facility] [id number] [facility] 2019-01-15 13:45:01 2019-01-15 13:45:01 Outpatient [facility] [id number] [facility] 2019-01-08 13:31:03 2019-01-08 13:31:03 Outpatient [facility] [id number] [facility] 2018-12-29 08:51:55 2018-12-29 08:51:55 Outpatient [facility] [id number] [facility] 2018-12-18 14:58:31 2018-12-18 14:58:31 Outpatient [facility] [id number] [facility] 2018-12-15 00:00:00 2018-12-15 00:00:00 Outpatient [facility] [id number] [facility] 2018-12-11 11:24:00 2018-12-11 11:45:00 Departed Emergency Room [facility] [id number] [facility] 2018-12-11 00:00:00 2018-12-11 00:00:00 Outpatient [facility] [id number] [facility] 2018-12-04 00:00:00 2018-12-04 00:00:00 Outpatient [facility] [id number] [facility] 2018-11-20 13:27:58 2018-11-20 13:27:58 Outpatient [facility] [id number] [facility] 2018-11-17 08:54:41 2018-11-17 08:54:41 [facility] [facility] [id number] [facility] 2018-11-17 00:00:00 2018-11-17 00:00:00 Outpatient [facility] [id number] [facility] 2018-11-13 00:00:00 2018-11-13 00:00:00 Outpatient [facility] [id number] [facility] 2018-10-30 13:24:41 2018-10-30 13:24:41 Outpatient [facility] [id number] [facility] 2018-10-22 04:32:49 2018-10-22 04:32:49 Emergency [facility] [id number] [facility] 2018-10-16 14:41:29 2018-10-16 14:41:29 Outpatient [facility] [id number] [facility] 2018-10-13 10:11:48 2018-10-13 10:11:48 Outpatient [facility] [id number] [facility] 2018-10-09 10:30:52 2018-10-09 10:30:52 Outpatient [facility] [id number] [facility] 2018-10-02 10:42:31 2018-10-02 10:42:31 Outpatient [facility] [id number] [facility] 2018-09-25 09:08:50 2018-09-25 09:08:50 Outpatient [facility] [id number] [facility] 2018-09-01 00:00:00 2018-09-01 00:00:00 Outpatient [facility] [id number] [facility] 2018-08-21 00:00:00 2018-08-21 00:00:00 Outpatient [facility] [id number] [facility] 2018-07-21 08:08:28 2018-07-21 08:08:28 Outpatient [facility] [id number] [facility] 2018-06-23 00:00:00 2018-06-23 00:00:00 Outpatient [facility] [id number] [facility] 2018-06-19 00:00:00 2018-06-19 00:00:00 Outpatient [facility] [id number] [facility] 2018-05-05 00:00:00 2018-05-05 00:00:00 Outpatient [facility] [id number] [facility] 2018-04-24 00:00:00 2018-04-24 00:00:00 Outpatient [facility] [id number] [facility] 2018-04-10 11:03:14 2018-04-10 11:03:14 Outpatient [facility] [id number] [facility] 2018-03-31 08:08:40 2018-03-31 08:08:40 Outpatient [facility] [id number] [facility] 2018-03-27 11:37:53 2018-03-27 11:37:53 Outpatient [facility] [id number] [facility] 2018-03-13 00:00:00 2018-03-13 00:00:00 Outpatient [facility] [id number] [facility] 2018-02-24 00:00:00 2018-02-24 00:00:00 Outpatient [facility] [id number] [facility] 2018-02-22 09:01:08 2018-02-22 09:01:08 Outpatient [facility] [id number] [facility] 2018-02-15 00:00:00 2018-02-15 00:00:00 Outpatient [facility] [id number] [facility] 2018-02-14 00:00:00 2018-02-14 00:00:00 Outpatient [facility] [id number] [facility] 2018-02-10 00:00:00 2018-02-10 00:00:00 Outpatient [facility] [id number] [facility] 2018-02-08 09:41:49 2018-02-08 09:41:49 Outpatient [facility] [id number] [facility] 2018-01-27 08:26:28 2018-01-27 08:26:28 Outpatient [facility] [id number] [facility] 2018-01-25 10:21:39 2018-01-25 10:21:39 Outpatient [facility] [id number] [facility] 2018-01-25 00:00:00 2018-01-25 00:00:00 Outpatient [facility] [id number] [facility] 2018-01-13 11:45:53 2018-01-13 11:45:53 Outpatient [facility] [id number] [facility] 2018-01-13 09:28:40 2018-01-13 09:28:40 Outpatient [facility] [id number] [facility] 2018-01-11 09:51:03 2018-01-11 09:51:03 Outpatient [facility] [id number] [facility] 2018-01-10 00:00:00 2018-01-10 00:00:00 Outpatient [facility] [id number] [facility] 2017-12-23 13:13:07 2017-12-23 13:13:07 Outpatient [facility] [id number] [facility] 2017-12-23 09:23:06 2017-12-23 09:23:06 Outpatient [facility] [id number] [facility] 2017-12-16 09:48:20 2017-12-16 09:48:20 Outpatient [facility] [id number] [facility] 2017-12-16 07:59:31 2017-12-16 07:59:31 Outpatient [facility] [id number] [facility] 2017-12-16 00:00:00 2017-12-16 00:00:00 Outpatient [facility] [id number] [facility] 2017-11-24 09:55:10 2017-11-24 09:55:10 Outpatient [facility] [id number] [facility] 2017-11-03 00:00:00 2017-11-03 00:00:00 Outpatient [facility] [id number] [facility] 2017-11-02 00:00:00 2017-11-02 00:00:00 Outpatient [facility] [id number] [facility] 2017-10-18 15:14:39 2017-10-18 15:14:39 Outpatient [facility] [id number] [facility] 2017-10-18 00:00:00 2017-10-18 00:00:00 Outpatient [facility] [id number] [facility] 2017-10-14 10:07:03 2017-10-14 10:07:03 Outpatient [facility] [id number] [facility] 2017-10-06 09:41:27 2017-10-06 09:41:27 Outpatient [facility] [id number] [facility] 2017-09-20 08:48:01 2017-09-20 08:48:01 Emergency [facility] [id number] [facility] 2017-08-31 09:40:00 2017-08-31 12:40:00 Departed Emergency Room 1 [facility] [id number] [facility] 2017-08-24 00:00:00 2017-08-24 00:00:00 Outpatient [facility] [id number] [facility] 2017-07-25 09:37:45 2017-07-25 09:37:45 Outpatient [facility] [id number] [facility] 2017-06-30 00:00:00 2017-06-30 00:00:00 Outpatient [facility] [id number] [facility] 2017-06-17 10:19:36 2017-06-17 10:19:36 Outpatient [facility] [id number] [facility] 2017-05-17 09:57:51 2017-05-17 09:57:51 Outpatient [facility] [id number] [facility] 2017-03-31 15:07:35 2017-03-31 15:07:35 Outpatient [facility] [id number] [facility] 2017-03-21 14:06:47 2017-03-21 14:06:47 Outpatient [facility] [id number] [facility] 2017-03-21 11:27:59 2017-03-21 11:27:59 Outpatient [facility] [id number] [facility] 2017-03-21 10:25:46 2017-03-21 10:25:46 Outpatient [facility] [id number] [facility] 2016-11-18 09:13:57 2016-11-18 09:13:57 Outpatient [facility] [id number] [facility] 2016-10-19 00:00:00 2016-10-19 00:00:00 Outpatient [facility] [id number] [facility] 2016-10-05 00:00:00 2016-10-05 00:00:00 Outpatient [facility] [id number] [facility] 2016-09-24 08:37:12 2016-09-24 08:37:12 Outpatient [facility] [id number] [facility] 2016-09-23 00:00:00 2016-09-23 00:00:00 Outpatient [facility] [id number] [facility] 2016-09-14 10:50:10 2016-09-14 10:50:10 Outpatient [facility] [id number] [facility] 2016-09-09 14:50:18 2016-09-09 14:50:18 Outpatient [facility] [id number] [facility] 2015-03-04 15:32:05 2015-03-04 15:32:05 Outpatient [facility] [id number] [facility] 2015-03-04 12:46:48 2015-03-04 12:46:48 Emergency [facility] [id number] [facility] 2014-11-02 13:50:03 2014-11-02 13:50:03 Emergency [facility] [id number] [facility] 2014-11-02 12:56:42 2014-11-02 12:56:42 Emergency [facility] [id number] [facility] Results Test Description Test Time Test Comments Results Result Comments Source CT CHEST W 2020-02-26 03:17:00 [facility] 1980 Sex: [place] [address] Patient Name: CLAUDE CHRISTIAN MR #: [id number] : 1980 Age/Sex: 39/F Req #: [id number] [facility] Physician: Ordered by: BRANDAN NOBLE DO Report #: [id number] Location: ER Room/Bed: Procedure: [id number] CT/CT CHEST W Exam Date: 02/26/20 Exam Time: 244 REPORT STATUS: Signed EXAM: CT Chest WITH contrast (PE Protocol) INDICATION: Y CP [id number] COMPARISON: Same day chest x-ray TECHNIQUE: [...] DO CHEST SINGLE (PORTABLE) 2020-02-26 01:03:00 [facility] : 1980 Sex: [place] [address] Patient Name: CLAUDE CHRISTIAN MR #: [id number] : 1980 Age/Sex: 39/F Req #: [id number] [facility] Physician: Ordered by: BRANDAN NOBLE DO Report #: [id number] Location: ER Room/Bed: Procedure: [id number] DX/CHEST SINGLE (PORTABLE) Exam Date: 02/26/20 Exam Time: 24 REPORT STATUS: Signed EXAMINATION: CHEST SINGLE (P ORTABLE) INDICATION: Y ERMD ORDER [id number] Y COMPARISON: None FINDINGS: AP view [...] (test code = 2106-3) NEGATIVE NEGATIVE 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 Report #: [id number] Location: ER Room/Bed: Procedure: CT/CT ABDOMEN/PELVIS W [...] on 05/09/2019 2:31 PM Dictated By: ELISE WLAKER MD 1431 Transcribed By: DAPHNE on 05/09/19 1431 COPY TO: BRANDAN HERNANDEZ NP Sodium Rzefh5410-39-72 12:38:00 * Test Item Value Reference Range Interpretation Comments Sodium Level (test code = 2951-2) 140 136-145 [facility] Plmyb5116-07-87 12:38:00* Test Item Value Reference Range Interpretation Comments Potassium Level (test code = 2823-3) 3.9 3.5-5.1 [facility] SystemChloride Xzydh6101-49-22 12:38:00* Test Item Value Reference Range Interpretation Comments Chloride Level (test code = 2075-0) 107 98-107 [facility] SystemCarbon Dioxide Uuqgs4179-22-46 12:38:00* Test Item Value Reference Range Interpretation Comments Carbon Dioxide Level (test code = 2028-9) 23 22-29 [facility] SystemAnion Ccp4951-85-55 12:38:00* Test Item Value Reference Range Interpretation Comments Anion Gap (test code = 23542-3) 13.9 8-16 [facility] SystemBlood Urea Jhungeeq1790-20-35 12:38:00* Test Item Value Reference Range Interpretation Comments Blood Urea Nitrogen (test code = 3094-0) 8 7-26 [facility] SystemCreatinine2020-01-15 12:38:00* Test Item Value Reference Range Interpretation Comments Creatinine (test code = 2160-0) 0.75 0.57-1.11 [facility] SystemBUN/Creatinine Qkyzf9732-34-92 12:38:00* Test Item Value Reference Range Interpretation Comments BUN/Creatinine Ratio (test code = 3097-3) 11 - [facility] SystemEstimat Glomerular Filtration Rate 2019-05-09 12:38:00* Test Item Value Reference Range Interpretation Comments Estimat Glomerular Filtration Rate (test code = 073433294) > 60 >60 Ranges were taken from the National Kidney Disease Education Program and the [facility] Kidney Foundation literature.Reference ranges:60 or greater: Oowrpb24-48 ( for 3 consecutive months): Chronic kidney disease 15 or less: Kidney failureDeTar Healthcare SystemGlucose Qofzp5023-78-68 12:38:00* Test Item Value Reference Range Interpretation Comments Glucose Level (test code = ZQQ9656) 112 74-118 [facility] SystemCalcium Vnnbf7611-78-56 12:38:00* Test Item Value Reference Range Interpretation Comments Calcium Level (test code = 09863-9) 9.1 8.4-10.2 [facility] SystemTotal Arbjqjuhe4109-18-34 12:38:00* Test Item Value Reference Range Interpretation Comments Total Bilirubin (test code = 1975-2) 0.4 0.2-1.2 [facility] SystemAspartate Amino Transf (AST/SGOT) 2019-05-09 12:38:00* Test Item Value Reference Range Interpretation Comments Aspartate Amino Transf (AST/SGOT) (test code = Aspartate Amino Transf (AST/SGOT)) 21 5-34 [facility] SystemAlanine Aminotransferase (ALT/SGPT) 2019-05-09 12:38:00* Test Item Value Reference Range Interpretation Comments Alanine Aminotransferase (ALT/SGPT) (test code = 1742-6) 22 0-55 [facility] SystemTotal Scnvdqx3868-47-94 12:38:00* Test Item Value Reference Range Interpretation Comments Total Protein (test code = 2885-2) 7.1 6.5-8.1 [facility] SystemAlbumin2020-01-15 12:38:00* Test Item Value Reference Range Interpretation Comments Albumin (test code = 1751-7) 3.8 3.5-5.0 [facility] SystemGlobulin2020-01-15 12:38:00* Test Item Value Reference Range Interpretation Comments Globulin (test code = 99688-0) 3.3 2.3-3.5 [facility] SystemAlbumin/Globulin Ybonv2754-42-14 12:38:00 * Test Item Value Reference Range Interpretation Comments Albumin/Globulin Ratio (test code = 1759-0) 1.2 0.8-2.0 [facility] SystemAlkaline Ncpeqzigrkp4434-55-95 12:38:00* Test Item Value Reference Range Interpretation Comments Alkaline Phosphatase (test code = 6768-6) 99 40-150 [facility] SystemLipase2020-01-15 12:38:00* Test Item Value Reference Range Interpretation Comments Lipase (test code = 3040-3) 20 8-78 [facility] SystemUrine TAA7336-79-61 12:20:00* Test Item Value Reference Range Interpretation Comments Urine WBC (test code = 5821-4) >50 0-5 H [facility] SystemU[facility] YLS4855-83-32 12:20:00* Test Item Value Reference Range Interpretation Comments Urine RBC (test code = 82210-4) >50 0-5 H [facility] SystemU[facility] Nskziuuf7189-84-29 12:20:00* Test Item Value Reference Range Interpretation Comments Urine Bacteria (test code = 86615-7) MANY NONE H [facility] SystemUrine Epithelial Tvsll2192-50-40 12:20:00 * Test Item Value Reference Range Interpretation Comments Urine Epithelial Cells (test code = 62412-5) MANY NONE [facility] SystemWhite Blood Vmlpv4764-10-92 12:12:00* Test Item Value Reference Range Interpretation Comments White Blood Count (test code = 6690-2) 8.88 4.8-10.8 [facility] SystemRed Blood Brrks1901-86-63 12:12:00* Test Item Value Reference Range Interpretation Comments Red Blood Count (test code = 789-8) 4.14 3.6-5.1 [facility] SystemHemoglobin2020-01-15 12:12:00* Test Item Value Reference Range Interpretation Comments Hemoglobin (test code = 59213-4) 11.3 12.0-16.0 L [facility] SystemHematocrit2020-01-15 12:12:00* Test Item Value Reference Range Interpretation Comments Hematocrit (test code = 4544-3) 34.5 34.2-44.1 [facility] SystemMean Corpuscular Fxikiy3787-17-24 12:12:00* Test Item Value Reference Range Interpretation Comments Mean Corpuscular Volume (test code = 787-2) 83.3 81-99 [facility] SystemMean Corpuscular Lvfxssibqo6751-09-52 12:12:00* Test Item Value Reference Range Interpretation Comments Mean Corpuscular Hemoglobin (test code = 785-6) 27.3 28-32 L [facility] SystemMean Corpuscular Hemoglobin Concent 2019-05-09 12:12:00* Test Item Value Reference Range Interpretation Comments Mean Corpuscular Hemoglobin Concent (test code = 786-4) 32.8 31-35 [facility] SystemRed Cell Distribution Ggqye5747-28-25 12:12:00* Test Item Value Reference Range Interpretation Comments Red Cell Distribution Width (test code = 28097-6) 15.5 11.7 -14.4 H [facility] SystemPlatelet Obizy1598-10-79 12:12:00* Test Item Value Reference Range Interpretation Comments Platelet Count (test code = 777-3) 463 140-360 H [facility] SystemNeutrophils (%) (Auto)2019-05-09 12:12:00 * Test Item Value Reference Range Interpretation Comments Neutrophils (%) (Auto) (test code = 04445-1) 68.7 38.7-80.0 [facility] SystemLymphocytes (%) (Auto)2019-05-09 12:12:00 * Test Item Value Reference Range Interpretation Comments Lymphocytes (%) (Auto) (test code = 736-9) 19.8 18.0-39.1 [facility] SystemMonocytes (%) (Auto)2019-05-09 12:12:00* Test Item Value Reference Range Interpretation Comments Monocytes (%) (Auto) (test code = 5905-5) 8.3 4.4-11.3 [facility] SystemEosinophils (%) (Auto)2019-05-09 12:12:00 * Test Item Value Reference Range Interpretation Comments Eosinophils (%) (Auto) (test code = 713-8) 2.4 0.0-6.0 [facility] SystemBasophils (%) (Auto)2019-05-09 12:12:00* Test Item Value Reference Range Interpretation Comments Basophils (%) (Auto) (test code = 706-2) 0.3 0.0-1.0 [facility] SystemIM GRANULOCYTES %2019-05-09 12:12:00* Test Item Value Reference Range Interpretation Comments IM GRANULOCYTES % (test code = IM GRANULOCYTES %) 0.5 0.0- 1.0 [facility] SystemNeutrophils # (Auto)2019-05-09 12:12:00* Test Item Value Reference Range Interpretation Comments Neutrophils # (Auto) (test code = 751-8) 6.1 2.1-6.9 [facility] SystemLymphocytes # (Auto)2019-05-09 12:12:00* Test Item Value Reference Range Interpretation Comments Lymphocytes # (Auto) (test code = 98297-2) 1.8 1.0-3.2 [facility] SystemMonocytes # (Auto)2019-05-09 12:12:00* Test Item Value Reference Range Interpretation Comments Monocytes # (Auto) (test code = 742-7) 0.7 0.2-0.8 [facility] SystemEosinophils # (Auto)2019-05-09 12:12:00* Test Item Value Reference Range Interpretation Comments Eosinophils # (Auto) (test code = 711-2) 0.2 0.0-0.4 [facility] SystemBasophils # (Auto)2019-05-09 12:12:00* Test Item Value Reference Range Interpretation Comments Basophils # (Auto) (test code = 704-7) 0.0 0.0-0.1 [facility] SystemAbsolute Immature Granulocyte (auto 2019-05-09 12:12:00* Test Item Value Reference Range Interpretation Comments Absolute Immature Granulocyte (auto (joy t code = Absolute Immature Granulocyte (auto) 0.04 0-0.1 [facility] SystemUrine Trlmh4756-02-61 12:11:00* Test Item Value Reference Range Interpretation Comments Urine Color (test code = 5778-6) YELLOW YELLOW [facility] System[facility] Ficjgfb8566-36-99 12:11:00* Test Item Value Reference Range Interpretation Comments Urine Clarity (test code = 72753-0) CLEAR CLEAR [facility] SystemUrine Specific Dvmoxwa4568-61-77 12:11:00 * Test Item Value Reference Range Interpretation Comments Urine Specific [place] (test code = 5811-5) 1.025 1.010-1.02 5 [facility] System[facility] aZ2076-65-14 12:11:00* Test Item Value Reference Range Interpretation Comments Urine pH (test code = 60481-2) 6.5 5-7 [facility] Leukocyte Pcnkhgvy2646-72-04 12:11:00* Test Item Value Reference Range Interpretation Comments Urine Leukocyte Esterase (test code = 5799-2) TRACE NEGATIVE H [facility] SystemUrine Dghnrlr4392-96-95 12:11:00* Test Item Value Reference Range Interpretation Comments Urine Nitrite (test code = 53479-5) NEGATIVE NEGATIVE [facility] System[facility] Wqftimf0996-74-82 12:11:00* Test Item Value Reference Range Interpretation Comments Urine Protein (test code = 5804-0) NEGATIVE NEGATIVE [facility] System[facility] Glucose (UA)2019-05-09 12:11:00* Test Item Value Reference Range Interpretation Comments Urine Glucose (UA) (test code = 2349-9) NEGATIVE NEGATIVE [facility] SystemU[facility] Izylnmq9282-50-94 12:11:00* Test Item Value Reference Range Interpretation Comments Urine Ketones (test code = 30728-2) NEGATIVE NEGATIVE [facility] System[facility] Jfsiptqusvnb4149-45-27 12:11:00* Test Item Value Reference Range Interpretation Comments Urine Urobilinogen (test code = 03934-7) 0.2 0.2-1 [facility] SystemU[facility] Scollqlsu7576-62-53 12:11:00* Test Item Value Reference Range Interpretation Comments Urine Bilirubin (test code = 1978-6) NEGATIVE NEGATIVE [facility] System[facility] Eygdd3162-67-61 12:11:00* Test Item Value Reference Range Interpretation Comments Urine Blood (test code = 74066-7) 1+ NEGATIVE [facility] System[facility] Pmrz3565-55-61 12:11:00* Test Item Value Reference Range Interpretation Comments Urine Test (test code = 2106-3) NEGATIVE NEGATIVE [facility] SystemBlood leukocytes automated count (number/volume)2019-05-09 10:20:00* Test Item Value Reference Range Interpretation Comments White Blood Count (test code = 6690-2) 8.88 4.8-10.8 [facility] SystemBlood erythrocytes automated count (number/volume)2019-05-09 10:20:00* Test Item Value Reference Range Interpretation Comments Red Blood Count (test code = 789-8) 4.14 3.6-5.1 [facility] SystemBlood hemoglobin measurement (moles/volume)2019-05-09 10:20:00* Test Item Value Reference Range Interpretation Comments Hemoglobin (test code = 47859-1) 11.3 12.0-16.0 [facility] SystemAutomated blood hematocrit (volume fraction)2019-05-09 10:20:00* Test Item Value Reference Range Interpretation Comments Hematocrit (test code = 4544-3) 34.5 34.2-44.1 [facility] SystemAutomated erythrocyte mean corpuscular noftbr7094-08-43 10:20:00* Test Item Value Reference Range Interpretation Comments Mean Corpuscular Volume (test code = 787-2) 83.3 81-99 [facility] SystemAutomated erythrocyte mean corpuscular hemoglobin (mass per erythrocyte)2019-05-09 10:20:00* Test Item Value Reference Range Interpretation Comments Mean Corpuscular Hemoglobin (test code = 785-6) 27.3 28-32 [facility] SystemAutomated erythrocyte mean corpuscular hemoglobin concentration measurement (mass/volume)2019-05-09 10:20:00* Test Item Value Reference Range Interpretation Comments Mean Corpuscular Hemoglobin Concent (test code = 786-4) 32.8 31-35 [facility] SystemRDW WrqQm-Vos7817-99-15 10:20:00* Test Item Value Reference Range Interpretation Comments Red Cell Distribution Width (test code = 94615-7) 15.5 11.7 -14.4 [facility] SystemAutomated blood platelet count (count/volume)2019-05-09 10:20:00* Test Item Value Reference Range Interpretation Comments Platelet Count (test code = 777-3) 463 140-360 [facility] SystemAutomated blood segmented neutrophil count as percentage of total opxgmxeybt1695-99-96 10:20:00* Test Item Value Reference Range Interpretation Comments Neutrophils (%) (Auto) (test code = 66574-8) 68.7 38.7-80.0 [facility] SystemAutomated blood lymphocyte count as percentage ot total vuhfedmihl6814-26-78 10:20:00* Test Item Value Reference Range Interpretation Comments Lymphocytes (%) (Auto) (test code = 736-9) 19.8 18.0-39.1 [facility] SystemAutomated blood monocyte count as percentage of total ivbhzbmhym6671-15-19 10:20:00* Test Item Value Reference Range Interpretation Comments Monocytes (%) (Auto) (test code = 5905-5) 8.3 4.4-11.3 [facility] SystemAutomated blood eosinophil count as percentage of total osnqqutefq3196-78-59 10:20:00* Test Item Value Reference Range Interpretation Comments Eosinophils (%) (Auto) (test code = 713-8) 2.4 0.0-6.0 [facility] SystemAutomated blood basophil count as percentage of total lnvvslykgu4656-12-06 10:20:00* Test Item Value Reference Range Interpretation Comments Basophils (%) (Auto) (test code = 706-2) 0.3 0.0-1.0 [facility] SystemFluoroscopic procedure less than one hour tjxliyuq2011-91-89 10:20:00* Test Item Value Reference Range Interpretation Comments IM GRANULOCYTES % (test code = IM GRANULOCYTES %) 0.5 0.0- 1.0 [facility] SystemAutomated blood neutrophil count 2019-05-09 10:20:00* Test Item Value Reference Range Interpretation Comments Neutrophils # (Auto) (test code = 751-8) 6.1 2.1-6.9 [facility] SystemBlood lymphocytes count (number/volume) 2019-05-09 10:20:00* Test Item Value Reference Range Interpretation Comments Lymphocytes # (Auto) (test code = 20039-2) 1.8 1.0-3.2 [facility] monocytes automated count (number/volume)2019-05-09 10:20:00* Test Item Value Reference Range Interpretation Comments Monocytes # (Auto) (test code = 742-7) 0.7 0.2-0.8 [facility] SystemAutom[facility] blood eosinophil count 2019-05-09 10:20:00* Test Item Value Reference Range Interpretation Comments Eosinophils # (Auto) (test code = 711-2) 0.2 0.0-0.4 [facility] SystemAutom[facility] blood basophil count (count/volume)2019-05-09 10:20:00* Test Item Value Reference Range Interpretation Comments Basophils # (Auto) (test code = 704-7) 0.0 0.0-0.1 [facility] SystemFluoroscopic procedure less than one hour nhzwyaam3350-45-35 10:20:00* Test Item Value Reference Range Interpretation Comments Absolute Immature Granulocyte (auto (joy t code = Absolute Immature Granulocyte (auto) 0.04 0-0.1 [facility] SystemUrine color beyadarlldbie8136-51-85 10:20:00* Test Item Value Reference Range Interpretation Comments Urine Color (test code = 5778-6) YELLOW YELLOW [facility] System[facility] ighqddh8227-72-99 10:20:00* Test Item Value Reference Range Interpretation Comments Urine Clarity (test code = 64620-8) CLEAR CLEAR [facility] gravity of Urine by Test strip 2019-05-09 10:20:00* Test Item Value Reference Range Interpretation Comments Urine Specific [place] (test code = 5811-5) 1.025 1.010-1.02 5 [facility] pH measurement by automated test adsfv4051-28-05 10:20:00* Test Item Value Reference Range Interpretation Comments Urine pH (test code = 04242-8) 6.5 5-7 [facility] SystemU[facility] leukocyte esterase detection by gmskbpzc3350-62-30 10:20:00* Test Item Value Reference Range Interpretation Comments Urine Leukocyte Esterase (test code = 5799-2) TRACE NEGATIVE [facility] System[facility] nitrite airrxceur4794-16-67 10:20:00* Test Item Value Reference Range Interpretation Comments Urine Nitrite (test code = 21564-3) NEGATIVE NEGATIVE [facility] protein measurement by test strip (mass/volume)2019-05-09 10:20:00* Test Item Value Reference Range Interpretation Comments Urine Protein (test code = 5804-0) NEGATIVE NEGATIVE [facility] SystemU[facility] glucose rkytczknd9848-57-48 10:20:00* Test Item Value Reference Range Interpretation Comments Urine Glucose (UA) (test code = 2349-9) NEGATIVE NEGATIVE [facility] SystemU[facility] ketones detection by automated test bpwzb9327-37-69 10:20:00* Test Item Value Reference Range Interpretation Comments Urine Ketones (test code = 86187-2) NEGATIVE NEGATIVE [facility] SystemUrine urobilinogen measurement by test strip (mass/volume)2019-05-09 10:20:00* Test Item Value Reference Range Interpretation Comments Urine Urobilinogen (test code = 13455-6) 0.2 0.2-1 [facility] SystemU[facility] total bilirubin measurement (mass/volume)2019-05-09 10:20:00* Test Item Value Reference Range Interpretation Comments Urine Bilirubin (test code = 1978-6) NEGATIVE NEGATIVE [facility] SystemU[facility] erythrocytes xlhliomow5624-80-90 10:20:00* Test Item Value Reference Range Interpretation Comments Urine Blood (test code = 79187-1) 1+ NEGATIVE [facility] SystemAutomated urine sediment leukocyte count by microscopy (number/high power field)2019-05-09 10:20:00* Test Item Value Reference Range Interpretation Comments Urine WBC (test code = 5821-4) >50 0-5 [facility] SystemErythrocytes detection in urine sediment by light emxsdjdfct4788-81-17 10:20:00* Test Item Value Reference Range Interpretation Comments Urine RBC (test code = 06576-8) >50 0-5 [facility] SystemBacteria detection in urine sediment by light yldumdqaeu4050-73-59 10:20:00* Test Item Value Reference Range Interpretation Comments Urine Bacteria (test code = 91537-6) MANY NONE [facility] SystemEpithelial cells detection in urine sediment by light ekviappjyc0240-82-13 10:20:00* Test Item Value Reference Range Interpretation Comments Urine Epithelial Cells (test code = 91784-0) MANY NONE [facility] Hospitalerum or plasma sodium measurement (moles/volume)2019-05-09 10:20:00* Test Item Value Reference Range Interpretation Comments Sodium Level (test code = 2951-2) 140 136-145 [facility] Hospitalerum or plasma potassium measurement (moles/volume)2019-05-09 10:20:00* Test Item Value Reference Range Interpretation Comments Potassium Level (test code = 2823-3) 3.9 3.5-5.1 [facility] Hospitalerum or plasma chloride measurement (moles/volume)2019-05-09 10:20:00* Test Item Value Reference Range Interpretation Comments Chloride Level (test code = 2075-0) 107 98-107 [facility] Hospitalerum or plasma carbon dioxide, total measurement (moles/volume)2019-05-09 10:20:00* Test Item Value Reference Range Interpretation Comments Carbon Dioxide Level (test code = 2028-9) 23 22-29 [facility] Hospitalerum or plasma anion mgp7205-73-67 10:20:00* Test Item Value Reference Range Interpretation Comments Anion Gap (test code = 92228-9) 13.9 8-16 [facility] Hospitalerum or plasma urea nitrogen measurement (mass/volume)2019-05-09 10:20:00* Test Item Value Reference Range Interpretation Comments Blood Urea Nitrogen (test code = 3094-0) 8 7-26 [facility] Hospitalerum or plasma creatinine measurement (mass/volume)2019-05-09 10:20:00* Test Item Value Reference Range Interpretation Comments Creatinine (test code = 2160-0) 0.75 0.57-1.11 [facility] Hospitalerum or plasma urea nitrogen/creatinine mass gdpvo0250-64-19 10:20:00* Test Item Value Reference Range Interpretation Comments BUN/Creatinine Ratio (test code = 3097-3) 11 6-25 [facility] SystemEstimated glomerular filtration rate (GFR) kogncrbgmmbug3021-59-04 10:20:00* Test Item Value Reference Range Interpretation Comments Estimat Glomerular Filtration Rate (test code = 021406612) > 60 >60 Ranges were taken from the National Kidney Disease Education Program and the [facility] Foundation literature.Reference ranges:60 or greater: Lehirb20-92 ( for 3 consecutive months): Chronic kidney disease 15 or less: Kidney failureDeTar Healthcare SystemGlucose qknxtmyjycb8366-62-09 10:20:00* Test Item Value Reference Range Interpretation Comments Glucose Level (test code = MXU9546) 112 74-118 [facility] Hospitalerum or plasma calcium measurement (mass/volume)2019-05-09 10:20:00* Test Item Value Reference Range Interpretation Comments Calcium Level (test code = 76893-9) 9.1 8.4-10.2 [facility] Hospitalerum or plasma total bilirubin measurement (mass/volume)2019-05-09 10:20:00* Test Item Value Reference Range Interpretation Comments Total Bilirubin (test code = 1975-2) 0.4 0.2-1.2 [facility] SystemFluoroscopic procedure less than one hour wtfneorg0723-43-88 10:20:00* Test Item Value Reference Range Interpretation Comments Aspartate Amino Transf (AST/SGOT) (test code = Aspartate Amino Transf (AST/SGOT)) 21 5-34 [facility] Hospitalerum or plasma alanine aminotransferase measurement (enzymatic activity/volume)2019-05-09 10:20:00* Test Item Value Reference Range Interpretation Comments Alanine Aminotransferase (ALT/SGPT) (test code = 1742-6) 22 0-55 [facility] Hospitalerum or plasma protein measurement (mass/volume)2019-05-09 10:20:00* Test Item Value Reference Range Interpretation Comments Total Protein (test code = 2885-2) 7.1 6.5-8.1 [facility] Hospitalerum or plasma albumin measurement (mass/volume)2019-05-09 10:20:00* Test Item Value Reference Range Interpretation Comments Albumin (test code = 1751-7) 3.8 3.5-5.0 [facility] SystemPlasma globulin measurement (mass/volume) 2019-05-09 10:20:00* Test Item Value Reference Range Interpretation Comments Globulin (test code = 25224-0) 3.3 2.3-3.5 [facility] Hospitalerum or plasma albumin/globulin mass ssjvj4951-90-90 10:20:00* Test Item Value Reference Range Interpretation Comments Albumin/Globulin Ratio (test code = 1759-0) 1.2 0.8-2.0 [facility] Hospitalerum or plasma alkaline phosphatase measurement (enzymatic activity/volume)2019-05-09 10:20:00* Test Item Value Reference Range Interpretation Comments Alkaline Phosphatase (test code = 6768-6) 99 40-150 [facility] Hospitalerum or plasma lipase measurement (enzymatic activity/volume)2019-05-09 10:20:00* Test Item Value Reference Range Interpretation Comments Lipase (test code = 3040-3) 20 8-78 [facility] SystemUrine Xnbml0008-89-53 17:13:00* Test Item Value Reference Range Interpretation Comments Urine Color (test code = 5778-6) YELLOW YELLOW [facility] SystemUrine Zkbwryj5137-29-60 17:13:00* Test Item Value Reference Range Interpretation Comments Urine Clarity (test code = 51006-3) SL CLOUDY CLEAR [facility] SystemUrine Specific Efphysg0156-25-98 17:13:00 * Test Item Value Reference Range Interpretation Comments Urine Specific [place] (test code = 5811-5) 1.025 1.010-1.02 5 [facility] SystemUrine qV7052-27-29 17:13:00* Test Item Value Reference Range Interpretation Comments Urine pH (test code = 50499-5) 7 5-7 [facility] SystemUrine Leukocyte Qajcnevv7061-26-68 17:13:00* Test Item Value Reference Range Interpretation Comments Urine Leukocyte Esterase (test code = 03156-1) SMALL NEGATIV E [facility] SystemUrine Hpxywtf9890-48-32 17:13:00* Test Item Value Reference Range Interpretation Comments Urine Nitrite (test code = 75301-5) NEGATIVE NEGATIVE [facility] SystemUrine Fpldmeb2706-97-71 17:13:00* Test Item Value Reference Range Interpretation Comments Urine Protein (test code = 89092-4) NEGATIVE NEGATIVE [facility] SystemUrine Glucose (UA)2019-04-20 17:13:00* Test Item Value Reference Range Interpretation Comments Urine Glucose (UA) (test code = 92419-0) NEGATIVE NEGATIVE [facility] SystemUrine Agixxxr0952-65-26 17:13:00* Test Item Value Reference Range Interpretation Comments Urine Ketones (test code = 93078-9) TRACE NEGATIVE H [facility] SystemUrine Vljxlneuvvej5759-21-32 17:13:00* Test Item Value Reference Range Interpretation Comments Urine Urobilinogen (test code = 80188-2) 0.2 0.2-1 [facility] SystemUrine Ftjxmfnrz6351-94-12 17:13:00* Test Item Value Reference Range Interpretation Comments Urine Bilirubin (test code = 1977-8) NEGATIVE NEGATIVE [facility] SystemUrine Xnkry9836-09-77 17:13:00* Test Item Value Reference Range Interpretation Comments Urine Blood (test code = 45545-5) NEGATIVE NEGATIVE [facility] SystemUrine VXP9388-52-69 17:13:00* Test Item Value Reference Range Interpretation Comments Urine WBC (test code = 5821-4) 6-10 0-5 H [facility] SystemUrine VXU3927-01-81 17:13:00* Test Item Value Reference Range Interpretation Comments Urine RBC (test code = 92075-1) NONE 0-5 [facility] SystemUrine Zltkaydj8155-08-84 17:13:00* Test Item Value Reference Range Interpretation Comments Urine Bacteria (test code = 71126-4) FEW NONE [facility] SystemUrine Epithelial Pvknx1975-64-36 17:13:00 * Test Item Value Reference Range Interpretation Comments Urine Epithelial Cells (test code = 10813-5) FEW NONE [facility] SystemLipase2019-12-27 15:37:00* Test Item Value Reference Range Interpretation Comments Lipase (test code = 3040-3) 24 8-78 [facility] Hospitalodium Ucoha8123-38-86 15:36:00* Test Item Value Reference Range Interpretation Comments Sodium Level (test code = 2951-2) 140 136-145 [facility] SystemPotassium Cwcnm6288-56-15 15:36:00* Test Item Value Reference Range Interpretation Comments Potassium Level (test code = 2823-3) 4.1 3.5-5.1 [facility] SystemChloride Wucgz1575-57-45 15:36:00* Test Item Value Reference Range Interpretation Comments Chloride Level (test code = 2075-0) 103 98-107 [facility] SystemCarbon Dioxide Vgdws2510-25-46 15:36:00* Test Item Value Reference Range Interpretation Comments Carbon Dioxide Level (test code = 2028-9) 25 22-29 [facility] SystemAnion Fhg1214-19-04 15:36:00* Test Item Value Reference Range Interpretation Comments Anion Gap (test code = 33639-2) 16.1 8-16 H [facility] SystemBlood Urea Ygsrulve4738-63-03 15:36:00* Test Item Value Reference Range Interpretation Comments Blood Urea Nitrogen (test code = 3094-0) 9 7-26 [facility] SystemCreatinine2019-12-27 15:36:00* Test Item Value Reference Range Interpretation Comments Creatinine (test code = 2160-0) 0.72 0.57-1.11 [facility] SystemBUN/Creatinine Cbytt7843-25-40 15:36:00* Test Item Value Reference Range Interpretation Comments BUN/Creatinine Ratio (test code = 3097-3) 13 6-25 [facility] SystemEstimat Glomerular Filtration Rate 2019-04-20 15:36:00* Test Item Value Reference Range Interpretation Comments Estimat Glomerular Filtration Rate (test code = 666034872) > 60 >60 Ranges were taken from the National Kidney Disease Education Program and the [facility] literature.Reference ranges:60 or greater: Mbcfmo26-06 ( for 3 consecutive months): Chronic kidney disease 15 or less: Kidney failureDeTar Healthcare SystemGlucose Uoiic0295-57-60 15:36:00* Test Item Value Reference Range Interpretation Comments Glucose Level (test code = YNG5739) 82 74-118 [facility] SystemCalcium Dllov3039-42-88 15:36:00* Test Item Value Reference Range Interpretation Comments Calcium Level (test code = 89263-9) 9.5 8.4-10.2 [facility] SystemTotal Wxhfgkjkj1202-84-00 15:36:00* Test Item Value Reference Range Interpretation Comments Total Bilirubin (test code = 1975-2) 0.3 0.2-1.2 [facility] SystemAspartate Amino Transf (AST/SGOT) 2019-04-20 15:36:00* Test Item Value Reference Range Interpretation Comments Aspartate Amino Transf (AST/SGOT) (test code = Aspartate Amino Transf (AST/SGOT)) 30 5-34 [facility] SystemAlanine Aminotransferase (ALT/SGPT) 2019-04-20 15:36:00* Test Item Value Reference Range Interpretation Comments Alanine Aminotransferase (ALT/SGPT) (test code = 1742-6) 24 0-55 [facility] SystemTotal Oxuucbh4467-85-08 15:36:00* Test Item Value Reference Range Interpretation Comments Total Protein (test code = 2885-2) 7.4 6.5-8.1 [facility] SystemAlbumin2019-12-27 15:36:00* Test Item Value Reference Range Interpretation Comments Albumin (test code = 1751-7) 3.7 3.5-5.0 [facility] SystemGlobulin2019-12-27 15:36:00* Test Item Value Reference Range Interpretation Comments Globulin (test code = 09547-4) 3.7 2.3-3.5 H [facility] SystemAlbumin/Globulin Foznp9713-43-74 15:36:00 * Test Item Value Reference Range Interpretation Comments Albumin/Globulin Ratio (test code = 1759-0) 1.0 0.8-2.0 [facility] SystemAlkaline Ycbiwjzfqss4028-28-76 15:36:00* Test Item Value Reference Range Interpretation Comments Alkaline Phosphatase (test code = 6768-6) 102 40-150 [facility] SystemWhite Blood Waghp9619-91-44 15:06:00* Test Item Value Reference Range Interpretation Comments White Blood Count (test code = 6690-2) 10.13 4.8-10.8 [facility] SystemRed Blood Jzqzl4313-00-26 15:06:00* Test Item Value Reference Range Interpretation Comments Red Blood Count (test code = 789-8) 3.92 3.6-5.1 [facility] SystemHemoglobin2019-12-27 15:06:00* Test Item Value Reference Range Interpretation Comments Hemoglobin (test code = 13070-6) 10.9 12.0-16.0 L [facility] SystemHematocrit2019-12-27 15:06:00* Test Item Value Reference Range Interpretation Comments Hematocrit (test code = 4544-3) 33.0 34.2-44.1 L [facility] SystemMean Corpuscular Bhefsb1616-30-12 15:06:00* Test Item Value Reference Range Interpretation Comments Mean Corpuscular Volume (test code = 787-2) 84.2 81-99 [facility] SystemMean Corpuscular Jkqaddgvmu0927-22-76 15:06:00* Test Item Value Reference Range Interpretation Comments Mean Corpuscular Hemoglobin (test code = 785-6) 27.8 28-32 L [facility] SystemMean Corpuscular Hemoglobin Concent 2019-04-20 15:06:00* Test Item Value Reference Range Interpretation Comments Mean Corpuscular Hemoglobin Concent (test code = 786-4) 33.0 31-35 [facility] SystemRed Cell Distribution Fidfw6588-50-19 15:06:00* Test Item Value Reference Range Interpretation Comments Red Cell Distribution Width (test code = 47139-4) 15.4 11.7 -14.4 H [facility] SystemPlatelet Ffcvo8842-46-15 15:06:00* Test Item Value Reference Range Interpretation Comments Platelet Count (test code = 777-3) 418 140-360 H [facility] SystemNeutrophils (%) (Auto)2019-04-20 15:06:00 * Test Item Value Reference Range Interpretation Comments Neutrophils (%) (Auto) (test code = 46901-3) 75.0 38.7-80.0 [facility] SystemLymphocytes (%) (Auto)2019-04-20 15:06:00 * Test Item Value Reference Range Interpretation Comments Lymphocytes (%) (Auto) (test code = 736-9) 15.5 18.0-39.1 L [facility] SystemMonocytes (%) (Auto)2019-04-20 15:06:00* Test Item Value Reference Range Interpretation Comments Monocytes (%) (Auto) (test code = 5905-5) 6.4 4.4-11.3 [facility] SystemEosinophils (%) (Auto)2019-04-20 15:06:00 * Test Item Value Reference Range Interpretation Comments Eosinophils (%) (Auto) (test code = 713-8) 2.4 0.0-6.0 [facility] SystemBasophils (%) (Auto)2019-04-20 15:06:00* Test Item Value Reference Range Interpretation Comments Basophils (%) (Auto) (test code = 706-2) 0.2 0.0-1.0 [facility] SystemIM GRANULOCYTES %2019-04-20 15:06:00* Test Item Value Reference Range Interpretation Comments IM GRANULOCYTES % (test code = IM GRANULOCYTES %) 0.5 0.0- 1.0 [facility] SystemNeutrophils # (Auto)2019-04-20 15:06:00* Test Item Value Reference Range Interpretation Comments Neutrophils # (Auto) (test code = 751-8) 7.6 2.1-6.9 H [facility] SystemLymphocytes # (Auto)2019-04-20 15:06:00* Test Item Value Reference Range Interpretation Comments Lymphocytes # (Auto) (test code = 28361-7) 1.6 1.0-3.2 [facility] SystemMonocytes # (Auto)2019-04-20 15:06:00* Test Item Value Reference Range Interpretation Comments Monocytes # (Auto) (test code = 742-7) 0.7 0.2-0.8 [facility] SystemEosinophils # (Auto)2019-04-20 15:06:00* Test Item Value Reference Range Interpretation Comments Eosinophils # (Auto) (test code = 711-2) 0.2 0.0-0.4 [facility] SystemBasophils # (Auto)2019-04-20 15:06:00* Test Item Value Reference Range Interpretation Comments Basophils # (Auto) (test code = 704-7) 0.0 0.0-0.1 [facility] SystemAbsolute Immature Granulocyte (auto 2019-04-20 15:06:00* Test Item Value Reference Range Interpretation Comments Absolute Immature Granulocyte (auto (joy t code = Absolute Immature Granulocyte (auto) 0.05 0-0.1 [facility] SystemCreatine Kinase GC0939-27-07 10:45:00* Test Item Value Reference Range Interpretation Comments Creatine Kinase MB (test code = 20364-7) 0.50 0-5.0 [facility] SystemTroponin N3952-90-82 10:45:00* Test Item Value Reference Range Interpretation Comments Troponin I (test code = QIQ8299) -0.001 0-0.300 [facility] Hospitalodium Tbclk7809-27-31 10:38:00* Test Item Value Reference Range Interpretation Comments Sodium Level (test code = 2951-2) 140 136-145 [facility] SystemPotassium Yvreo7170-63-27 10:38:00* Test Item Value Reference Range Interpretation Comments Potassium Level (test code = 2823-3) 3.9 3.5-5.1 [facility] SystemChloride Ummqo5525-85-55 10:38:00* Test Item Value Reference Range Interpretation Comments Chloride Level (test code = 2075-0) 106 98-107 [facility] SystemCarbon Dioxide Ezucz0242-36-01 10:38:00* Test Item Value Reference Range Interpretation Comments Carbon Dioxide Level (test code = 2028-9) 26 22-29 [facility] SystemAnion Alx3539-70-78 10:38:00* Test Item Value Reference Range Interpretation Comments Anion Gap (test code = 13550-1) 11.9 8-16 [facility] SystemBlood Urea Lolmhith9209-95-11 10:38:00* Test Item Value Reference Range Interpretation Comments Blood Urea Nitrogen (test code = 3094-0) 9 7-26 [facility] SystemCreatinine2018-05-09 10:38:00* Test Item Value Reference Range Interpretation Comments Creatinine (test code = 2160-0) 0.70 0.57-1.11 [facility] SystemBUN/Creatinine Xidug7109-74-22 10:38:00* Test Item Value Reference Range Interpretation Comments BUN/Creatinine Ratio (test code = 3097-3) 13 6-25 [facility] SystemEstimat Glomerular Filtration Rate 2017-08-31 10:38:00* Test Item Value Reference Range Interpretation Comments Estimat Glomerular Filtration Rate (test code = 60413-7) 60- >60 Ranges were taken from the National Kidney Disease Education Program and the [facility] Foundation literature.Reference ranges:60 or greater: Caqoba84-17 ( for 3 consecutive months): Chronic kidney disease 15 or less: Kidney failureDeTar Healthcare SystemGlucose Sbebf7827-68-20 10:38:00* Test Item Value Reference Range Interpretation Comments Glucose Level (test code = REB8597) 94 74-118 [facility] SystemCalcium Njnpy3097-67-89 10:38:00* Test Item Value Reference Range Interpretation Comments Calcium Level (test code = 69523-8) 10.1 8.4-10.2 [facility] SystemTotal Czmelkenh5161-97-01 10:38:00* Test Item Value Reference Range Interpretation Comments Total Bilirubin (test code = 1975-2) 0.5 0.2-1.2 [facility] SystemAspartate Amino Transf (AST/SGOT) 2017-08-31 10:38:00* Test Item Value Reference Range Interpretation Comments Aspartate Amino Transf (AST/SGOT) (test code = Aspartate Amino Transf (AST/SGOT)) 17 5-34 [facility] SystemAlanine Aminotransferase (ALT/SGPT) 2017-08-31 10:38:00* Test Item Value Reference Range Interpretation Comments Alanine Aminotransferase (ALT/SGPT) (test code = 1742-6) 17 0-55 [facility] SystemTotal Wwhxira9456-18-07 10:38:00* Test Item Value Reference Range Interpretation Comments Total Protein (test code = 2885-2) 8.2 6.5-8.1 H [facility] SystemAlbumin2018-05-09 10:38:00* Test Item Value Reference Range Interpretation Comments Albumin (test code = 1751-7) 4.1 3.5-5.0 [facility] SystemGlobulin2018-05-09 10:38:00* Test Item Value Reference Range Interpretation Comments Globulin (test code = 92934-0) 4.1 2.3-3.5 H [facility] SystemAlbumin/Globulin Nymfd1861-85-15 10:38:00 * Test Item Value Reference Range Interpretation Comments Albumin/Globulin Ratio (test code = 1759-0) 1.0 0.8-2.0 [facility] SystemAlkaline Qvdlffuuyar3684-02-61 10:38:00* Test Item Value Reference Range Interpretation Comments Alkaline Phosphatase (test code = 6768-6) 104 40-150 [facility] SystemCreatine Ejktbh9002-16-82 10:38:00* Test Item Value Reference Range Interpretation Comments Creatine Kinase (test code = 2157-6) 155 29-168 [facility] SystemD-Dimer Quantitative (PE/DVT)2017-08-31 10:30:00* Test Item Value Reference Range Interpretation Comments D-Dimer Quantitative (PE/DVT) (test code = 57007-8) 0.28 0. 00-0.45 As with all in vitro diagnostic tests, the test results should be interpreted by the physician in conjunction with clinical findings and other test results.Test results are reported in NEW D-dimer units(ug/mLFEU).[facility] SystemHuman Chorionic Gonadotropin, Rsky4105-42-54 10:29:00* Test Item Value Reference Range Interpretation Comments Human Chorionic Gonadotropin, Qual (test code = 2118-8) NEGATIVE NEGATIVE [facility] SystemWhite Blood Hzijz8108-27-78 10:18:00* Test Item Value Reference Range Interpretation Comments White Blood Count (test code = 6690-2) 9.38 4.8-10.8 [facility] SystemRed Blood Mkbnl0194-08-15 10:18:00* Test Item Value Reference Range Interpretation Comments Red Blood Count (test code = 789-8) 4.39 3.6-5.1 [facility] SystemHemoglobin2018-05-09 10:18:00* Test Item Value Reference Range Interpretation Comments Hemoglobin (test code = 20498-6) 12.2 12.0-16.0 [facility] SystemHematocrit2018-05-09 10:18:00* Test Item Value Reference Range Interpretation Comments Hematocrit (test code = 4544-3) 36.7 34.2-44.1 [facility] SystemMean Corpuscular Iuukld1451-45-13 10:18:00* Test Item Value Reference Range Interpretation Comments Mean Corpuscular Volume (test code = 787-2) 83.6 81-99 [facility] SystemMean Corpuscular Pjvivuhlyh3757-92-80 10:18:00* Test Item Value Reference Range Interpretation Comments Mean Corpuscular Hemoglobin (test code = 785-6) 27.8 28-32 L [facility] SystemMean Corpuscular Hemoglobin Concent 2017-08-31 10:18:00* Test Item Value Reference Range Interpretation Comments Mean Corpuscular Hemoglobin Concent (test code = 786-4) 33.2 31-35 [facility] SystemRed Cell Distribution Arluc8028-08-26 10:18:00* Test Item Value Reference Range Interpretation Comments Red Cell Distribution Width (test code = 93586-2) 13.9 11.7 -14.4 [facility] SystemPlatelet Actwz0302-01-91 10:18:00* Test Item Value Reference Range Interpretation Comments Platelet Count (test code = 777-3) 489 140-360 H [facility] SystemNeutrophils (%) (Auto)2017-08-31 10:18:00 * Test Item Value Reference Range Interpretation Comments Neutrophils (%) (Auto) (test code = 62577-6) 76.5 38.7-80.0 [facility]ymph[facility] (%) (Auto)2017-08-31 10:18:00 * Test Item Value Reference Range Interpretation Comments Lymphocytes (%) (Auto) (test code = 736-9) 13.3 18.0-39.1 L [facility] (%) (Auto)2017-08-31 10:18:00* Test Item Value Reference Range Interpretation Comments Monocytes (%) (Auto) (test code = 5905-5) 7.4 4.4-11.3 [facility] (%) (Auto)2017-08-31 10:18:00 * Test Item Value Reference Range Interpretation Comments Eosinophils (%) (Auto) (test code = 713-8) 2.1 0.0-6.0 [facility] (%) (Auto)2017-08-31 10:18:00* Test Item Value Reference Range Interpretation Comments Basophils (%) (Auto) (test code = 706-2) 0.3 0.0-1.0 [facility]IM [facility]TES %2017-08-31 10:18:00* Test Item Value Reference Range Interpretation Comments IM GRANULOCYTES % (test code = IM GRANULOCYTES %) 0.4 0.0- 1.0 [facility] # (Auto)2017-08-31 10:18:00* Test Item Value Reference Range Interpretation Comments Neutrophils # (Auto) (test code = 751-8) 7.2 2.1-6.9 H [facility] SystemLymphocytes # (Auto)2017-08-31 10:18:00* Test Item Value Reference Range Interpretation Comments Lymphocytes # (Auto) (test code = 56536-3) 1.3 1.0-3.2 [facility] # (Auto)2017-08-31 10:18:00* Test Item Value Reference Range Interpretation Comments Monocytes # (Auto) (test code = 742-7) 0.7 0.2-0.8 [facility] # (Auto)2017-08-31 10:18:00* Test Item Value Reference Range Interpretation Comments Eosinophils # (Auto) (test code = 711-2) 0.2 0.0-0.4 [facility] # (Auto)2017-08-31 10:18:00* Test Item Value Reference Range Interpretation Comments Basophils # (Auto) (test code = 704-7) 0.0 0.0-0.1 [facility] SystemAbsolute Immature Granulocyte (auto 2017-08-31 10:18:00* Test Item Value Reference Range Interpretation Comments Absolute Immature Granulocyte (auto (joy t code = Absolute Immature Granulocyte (auto) 0.04 0-[address] [facility] [address] [address] Patient Name: CLAUDE CHRISTIAN MR #: [id number] : 1980 Age/Sex: 36/F Req #: [id number] Adm Physician: Ordered by: BRANDAN HERNANDEZ ELECTRICAL MAINTENANCE TECHNICIAN Report #: [id number] Location: ER Room/Bed: Procedure: [id number] DX/CHEST 2 VIEWS Exam D ate: 08/31/17 [...] acute bony abnormality. IMPRESSION: 1. No ac chilkat cardiopulmonary disease. Dictated by: Carmelo Acevedo M.D. on 8 at 12:15 Electronically approved by: Carmelo Acevedo M.D. on 08/31/2017 at 12:15 Dictated By: CARMELO ACEVEDO MD [id number] Transcribed By: TK on 08/31/17 1215 COPY TO: BRANDAN HERNANDEZ ELECTRICAL MAINTENANCE TECHNICIAN
--- NOTE | 2020-02-28 19:10 | NUR ---
RECEIVED THE PT IN REPORT.FAMILY MEMBER ART BED SIDE.SITTER AT BED SIDE.WAITING FOR AMBULANCE TO TRANSFER PT TO [facility].
[2020-02-28] MEDS: DULOXETINE HCL 30 MG DELAYED RELEASE PO SCH (20:08)
[2020-02-28] MEDS: ARIPIPRAZOLE 5 MG TABLET PO SCH (20:08)
[2020-02-28] MEDS: METHOTREXATE SOD 2.5 MG TAB PO SCH (20:15)
--- NOTE | 2020-02-28 20:30 | NUR ---
V/S CHECKED.STABLE.DUE MEDICATION GIVEN.DC TELE AND REMOVED IV.APPLIED PRESSURE DRESSING.IV TIP WAS INTACT.TRANSFERRED TO [facility] WITH ALL THE BELONGINGS AND COPY OF TRANSITION CARE.
== END 2020-02-28 20:04 | disposition psychiatric hospital, planned readmission (93) ==
LOC: ER 23:33 → ERHOLD 02-26 05:50 → MED/SURG2 02-26 12:24
PROVIDERS: ADMIT Internal Medicine; ATTEND Internal Medicine
DX: R07.1 Chest pain on breathing (principal); K29.00 Acute gastritis without bleeding; R45.851 Suicidal ideations; R19.7 Diarrhea, unspecified; E87.6 Hypokalemia; M79.7 Fibromyalgia; F32.9 Major depressive disorder, single episode, unspecified; R00.0 Tachycardia, unspecified; E66.9 Obesity, unspecified; Z68.31 Body mass index [BMI] 31.0-31.9, adult; Z11.59 Encounter for screening for other viral diseases; J45.901 Unspecified asthma with (acute) exacerbation; M06.9 Rheumatoid arthritis, unspecified
CPT/HCPCS: 36415 ×3; 71045; 71260; 80053 ×2; 80061; 82550 ×2; 82553 ×2; 83880; 84443; 84484 ×2; 84702; 85025 ×3; 93005 ×3; 93306; 94664; 99285; G0378 ×3; J1885; J2060; J2930; J8610 ×3; Q9967; U0002

== ENCOUNTER 2020-03-06 20:50 | Emergency (ER) | payer OTHER ==
[~2020-03-06] VITALS: Ht 152.4 cm; Wt 72.6 kg
[~2020-03-06 20:50] MED LIST changes: +METHOTREXATE2.5 MG PO
[2020-03-06] MEDS ORDERED: FAMOTIDINE 20 MG/2 ML VIAL IV STA (21:11)
[2020-03-06] MEDS ORDERED: KETOROLAC TROMETHAMINE 30 MG/ML VIAL IV STA (21:11)
[2020-03-06] MEDS ORDERED: DONNATAL/LIDOCAINE/MAALOX 30 ML SUSP PO SCH (21:15)
[2020-03-06 21:29] LABS: BASOPHILS % 0.2 % (0.0-1.0); EOSINOPHILS # (AUTO) 0.2 (0.0-0.4); EOSINOPHILS % 1.7 % (0.0-6.0); HEMATOCRIT 33.3 % (34.2-44.1); HEMOGLOBIN 10.6 g/dL (12.0-16.0); LYMPHOCYTES # (AUTO) 2.2 (1.0-3.2); LYMPHOCYTES % 16.2 % (18.0-39.1); MEAN CORPUSCULAR HGB CONC 31.8 g/dL (31-35); MEAN CORPUSCULAR VOLUME 91.2 fL (81-99); MONOCYTES # (AUTO) 1.1 (0.2-0.8); NEUTROPHILS # (AUTO) 9.7 (2.1-6.9); NEUTROPHILS % 73.1 % (38.7-80.0); PLATELET COUNT 449 x10e3/uL (140-360); RED BLOOD COUNT 3.65 x10e6/uL (3.6-5.1); RED CELL DISTRIBUTION WIDTH 20.7 % (11.7-14.4)
[2020-03-06 21:31] LABS: BILIRUBIN,URINE NEGATIVE (NEGATIVE); CLARITY,URINE SL CLOUDY (CLEAR); COLOR,URINE YELLOW (YELLOW); KETONES,URINE TRACE (NEGATIVE); LEUKOCYTE ESTERASE ,URINE SMALL (NEGATIVE); NITRITE,URINE NEGATIVE (NEGATIVE); PREGNANCY TEST, URINE NEGATIVE (NEGATIVE); PROTEIN,URINE DIPSTICK NEGATIVE (NEGATIVE); URINE UROBILINOGEN 0.2 mg/dL (0.2 - 1)
[2020-03-06 21:40] LABS: BACTERIA,URINE FEW /HPF; EPITHELIAL CELLS,URINE MODERATE /LPF
[2020-03-06] MEDS ORDERED: LIDOCAINE VISC 2% SOLN 15 ML UDC ONE (21:41)
[2020-03-06] MEDS ORDERED: MAGNESIUM/ALUMINUM/SIMETHICONE 30 ML UDC ONE (21:41)
[2020-03-06] MEDS ORDERED: BELLADONNA ALK/PHENOBARBITAL 5 ML UDC ONE (21:41)
[2020-03-06 21:53] LABS: ALANINE AMINOTRANSFERASE 33 IU/L (0-55); ALBUMIN 3.7 g/dL (3.5-5.0); ALBUMIN/GLOBULIN RATIO 1.2 (0.8-2.0); ALKALINE PHOSPHATASE 87 IU/L (40-150); ANION GAP 12.8 mmol/L (8-16); BLOOD UREA NITROGEN 7 mg/dL (7-26); BUN/CREATININE RATIO 8 (6-25); CARBON DIOXIDE 28 mmol/L (22-29); CHLORIDE 103 mmol/L (98-107); CREATININE, SERUM 0.85 mg/dL (0.57-1.11); EST GLOMERULAR FILTRATION RATE > 60 ML/MIN (60-); GLUCOSE 98 mg/dL (74-118); LIPASE 15 U/L (8-78); POTASSIUM 3.8 mmol/L (3.5-5.1); SODIUM 140 mmol/L (136-145)
[2020-03-06] MEDS ORDERED: SODIUM CHLORIDE 0.9% 50ML 50 ML ONE (22:05)
[2020-03-06] MEDS ORDERED: IOPAMIDOL 370 MG/ML 200 ML INFUS..BTL INJ ONE (22:06)
[2020-03-06] MEDS ORDERED: CEFUROXIME250 MG PO (23:29)
[2020-03-06] MEDS ORDERED: CEFUROXIME AXETIL 250 MG TAB PO ONE (23:30)
[2020-03-06] MEDS ORDERED: PEPCID20 MG PO (23:34)
[2020-03-06 23:44] VITALS: BP 98/65
== END 2020-03-06 23:55 | disposition home or self-care (01) ==
LOC: ER 21:02
DX: K62.5 Hemorrhage of anus and rectum (principal); N39.0 Urinary tract infection, site not specified; R10.13 Epigastric pain; J45.909 Unspecified asthma, uncomplicated; M06.9 Rheumatoid arthritis, unspecified; F31.9 Bipolar disorder, unspecified
CPT/HCPCS: 36415; 74177; 80053; 81001; 81025; 83605; 83690; 85025; 99284; J1885; Q9967

== ENCOUNTER 2021-09-04 12:08 | Emergency (ER) | payer OTHER ==
[~2021-09-04] VITALS: Ht 152.4 cm; Wt 72.6 kg
[~2021-09-04 12:08] MED LIST changes: +CEFUROXIME250 MG PO; +PEPCID20 MG PO
[2021-09-04] MEDS ORDERED: SODIUM CHLORIDE 0.9% 1000ML 1,000 ML IV STA (12:19)
[2021-09-04] MEDS ORDERED: METHYLPREDNISOLONE SOD SUCC 125 MG/2ML VIAL IV ONE (12:30)
[2021-09-04] MEDS ORDERED: ALBUTEROL/IPRATROPIUM 3 ML NEB NEB ONE (12:30)
[2021-09-04] MEDS ORDERED: KETOROLAC TROMETHAMINE 30 MG/ML VIAL IV STA (13:54)
[2021-09-04] MEDS ORDERED: CEPHALEXIN500 MG PO (14:48)
[2021-09-04] MEDS ORDERED: PREDNISONE50 MG PO (14:48)
[2021-09-04 15:16] VITALS: BP 121/78
== END 2021-09-04 15:19 | disposition home or self-care (01) ==
LOC: ER 12:14
DX: J45.909 Unspecified asthma, uncomplicated (principal); M79.7 Fibromyalgia; M06.9 Rheumatoid arthritis, unspecified; F31.9 Bipolar disorder, unspecified; R94.31 Abnormal electrocardiogram [ECG] [EKG]
CPT/HCPCS: 71045; 93005; 99283; J1885; J2930; J7030

== ENCOUNTER 2022-05-27 10:36 | Emergency (ER) | payer OTHER ==
[~2022-05-27] VITALS: Ht 152.4 cm; Wt 72.6 kg
[~2022-05-27 10:36] MED LIST changes: +CEPHALEXIN500 MG PO; +PREDNISONE50 MG PO
[2022-05-27] MEDS ORDERED: SODIUM CHLORIDE 0.9% 1000ML 1,000 ML IV STA (11:14)
[2022-05-27] MEDS ORDERED: DICYCLOMINE HCL 20 MG/2 ML VIAL IM ONE (11:15)
[2022-05-27 11:32] LABS: BASOPHILS % 0.2 % (0.0-1.0); EOSINOPHILS # (AUTO) 0.2 (0.0-0.4); EOSINOPHILS % 2.5 % (0.0-6.0); HEMOGLOBIN 12.4 g/dL (12.0-16.0); LYMPHOCYTES # (AUTO) 1.9 (1.0-3.2); LYMPHOCYTES % 22.5 % (18.0-39.1); MEAN CORPUSCULAR HEMOGLOBIN 28.8 pg (28-32); MEAN CORPUSCULAR VOLUME 92.8 fL (81-99); MONOCYTES # (AUTO) 0.6 (0.2-0.8); MONOCYTES % 7.1 % (4.4-11.3); NEUTROPHILS # (AUTO) 5.8 (2.1-6.9); NEUTROPHILS % 67.3 % (38.7-80.0); PLATELET COUNT 503 x10e3/uL (140-360); RED BLOOD COUNT 4.31 x10e6/uL (3.6-5.1); RED CELL DISTRIBUTION WIDTH 13.9 % (11.7-14.4)
[2022-05-27 11:51] LABS: ALBUMIN 4.2 g/dL (3.5-5.0); ALBUMIN/GLOBULIN RATIO 1.2 (0.8-2.0); ANION GAP 14.4 mmol/L (8-16); CALCIUM 9.4 mg/dL (8.4-10.2); CREATININE, SERUM 0.72 mg/dL (0.57-1.11); POTASSIUM 3.4 mmol/L (3.5-5.1)
[2022-05-27 12:13] LABS: CLARITY,URINE CLEAR (CLEAR); COLOR,URINE YELLOW (YELLOW); KETONES,URINE NEGATIVE (NEGATIVE); LEUKOCYTE ESTERASE ,URINE NEGATIVE (NEGATIVE); NITRITE,URINE NEGATIVE (NEGATIVE); PROTEIN,URINE DIPSTICK NEGATIVE (NEGATIVE); URINE UROBILINOGEN 0.2 mg/dL (0.2 - 1)
[2022-05-27 12:17] LABS: BACTERIA,URINE MODERATE /HPF; EPITHELIAL CELLS,URINE MODERATE /LPF; RBC,URINE 0-5 /HPF (0-5); WBC,URINE (MAN) 0-5 /HPF (0-5)
[2022-05-27] MEDS ORDERED: HYDROCODON-ACE1 EA11 PO (12:32)
[2022-05-27 12:33] VITALS: BP 122/78
== END 2022-05-27 12:44 | disposition home or self-care (01) ==
LOC: ER 10:44
DX: R10.11 Right upper quadrant pain (principal); M06.9 Rheumatoid arthritis, unspecified; J45.909 Unspecified asthma, uncomplicated; M79.7 Fibromyalgia; F31.9 Bipolar disorder, unspecified
CPT/HCPCS: 36415; 80053; 81001; 83690; 84702; 85025; 99283; C9113; J0500; J7030

== ENCOUNTER 2022-09-20 19:02 | Emergency (ER) | payer OTHER ==
[~2022-09-20] VITALS: Ht 152.4 cm; Wt 72.6 kg
[~2022-09-20 19:02] MED LIST changes: +HYDROCODON-ACE1 EA11 PO
[2022-09-20] MEDS ORDERED: MEDROL4 M2 PO (19:13)
[2022-09-20] MEDS ORDERED: METHYLPREDNISOLONE SOD SUCC 125 MG/2ML VIAL IM ONE (19:15)
[2022-09-20] MEDS ORDERED: ALBUTEROL/IPRATROPIUM 3 ML NEB NEB ONE (19:15)
[2022-09-20 19:25] VITALS: PULSE 101; RESP 20; O2SAT 97
[2022-09-20] MEDS ORDERED: KETOROLAC TROMETHAMINE 60 MG/2 ML VIAL IM ONE (20:45)
[2022-09-20] MEDS ORDERED: AZITHROMYCIN250 MG PO (21:56)
[2022-09-20 22:06] VITALS: BP 108/77; PULSE 103; RESP 20; O2SAT 97
== END 2022-09-20 22:08 | disposition home or self-care (01) ==
LOC: ER 19:13
DX: R06.02 Shortness of breath (principal); J45.901 Unspecified asthma with (acute) exacerbation; M79.7 Fibromyalgia; F31.9 Bipolar disorder, unspecified
CPT/HCPCS: 71045; 94640; 94799; 99284; J1885; J2930

== ENCOUNTER 2023-12-11 14:55 | Emergency (ER) | payer MEDICARE, OTHER ==
[~2023-12-11] VITALS: Ht 152.4 cm; Wt 72.6 kg
[~2023-12-11 14:55] MED LIST changes: +AZITHROMYCIN250 MG PO; +MEDROL4 M2 PO; +PREDNISONE20 MG PO
[2023-12-11 15:02] VITALS: TEMP 98.3
[2023-12-11 15:47] LABS: BASOPHILS % 0.1 % (0.0-1.0); EOSINOPHILS # (AUTO) 0.2 (0.0-0.4); EOSINOPHILS % 2.8 % (0.0-6.0); HEMATOCRIT 34.7 % (34.2-44.1); HEMOGLOBIN 11.1 g/dL (12.0-16.0); LYMPHOCYTES # (AUTO) 1.9 (1.0-3.2); LYMPHOCYTES % 22.6 % (18.0-39.1); MEAN CORPUSCULAR VOLUME 87.6 fL (81-99); MONOCYTES % 11.3 % (4.4-11.3); NEUTROPHILS # (AUTO) 5.4 (2.1-6.9); NEUTROPHILS % 62.7 % (38.7-80.0); PLATELET COUNT 343 x10e3/uL (140-360); RED BLOOD COUNT 3.96 x10e6/uL (3.6-5.1); RED CELL DISTRIBUTION WIDTH 14.9 % (11.7-14.4); WHITE BLOOD COUNT 8.58 x10e3/uL (4.8-10.8)
[2023-12-11 15:58] LABS: ALANINE AMINOTRANSFERASE 19 IU/L (0-55); ALBUMIN 3.7 g/dL (3.5-5.0); ALBUMIN/GLOBULIN RATIO 1.2 (0.8-2.0); ALKALINE PHOSPHATASE 85 IU/L (40-150); ANION GAP 12.3 mmol/L (8-16); BILIRUBIN,TOTAL 0.4 mg/dL (0.2-1.2); BLOOD UREA NITROGEN 8 mg/dL (7-26); BUN/CREATININE RATIO 10 (6-25); CALCIUM 9.2 mg/dL (8.4-10.2); CARBON DIOXIDE 25 mmol/L (22-29); CHLORIDE 102 mmol/L (98-107); EST GLOMERULAR FILTRATION RATE 95 ML/MIN (>=60); GLUCOSE 91 mg/dL (74-118); POTASSIUM 4.3 mmol/L (3.5-5.1); SODIUM 135 mmol/L (136-145); TOTAL PROTEIN 6.9 g/dL (6.5-8.1)
[2023-12-11] MEDS: SODIUM CHLORIDE 0.9% 1000ML 1,000 ML IV ONE (16:22)
[2023-12-11] MEDS: ONDANSETRON HCL INJ 2MG/ML 2ML 2 MG/ML VIAL IV STA (16:22)
[2023-12-11] MEDS: KETOROLAC TROMETHAMINE 30 MG/ML VIAL IV STA (16:22)
[2023-12-11] MEDS ORDERED: IOPAMIDOL 370 MG/ML 100 ML INFUS..BTL INJ ONE (16:23)
[2023-12-11 16:24] LABS: CLARITY,URINE SL CLOUDY (CLEAR); COLOR,URINE YELLOW (YELLOW)
[2023-12-11 16:25] LABS: BILIRUBIN,URINE NEGATIVE (NEGATIVE); GLUCOSE, URINE NEGATIVE (NEGATIVE); KETONES,URINE NEGATIVE (NEGATIVE); LEUKOCYTE ESTERASE ,URINE NEGATIVE (NEGATIVE); NITRITE,URINE NEGATIVE (NEGATIVE); PH,URINE 8.5 (5 - 7); PROTEIN,URINE DIPSTICK NEGATIVE (NEGATIVE); URINE UROBILINOGEN 0.2 mg/dL (0.2 - 1)
[2023-12-11 16:38] LABS: BACTERIA,URINE FEW /HPF; EPITHELIAL CELLS,URINE MANY /LPF; RBC,URINE 0-5 /HPF (0-5); WBC,URINE (MAN) 0-5 /HPF (0-5)
[2023-12-11 16:38] LABS: LIPASE 37 U/L (8-78)
[2023-12-11 17:18] VITALS: PULSE 57; RESP 17; O2SAT 100
[2023-12-11] MEDS ORDERED: CARAFATE1 GM PO (17:51)
[2023-12-11] MEDS ORDERED: PEPCID20 MG PO (17:51)
[2023-12-11] MEDS: FAMOTIDINE 20 MG/2 ML VIAL IV STA (17:56)
[2023-12-11] MEDS: SUCRALFATE 1 GM TAB PO STA (17:56)
== END 2023-12-11 18:29 | disposition home or self-care (01) ==
LOC: ER 15:04
DX: R10.11 Right upper quadrant pain (principal); J45.909 Unspecified asthma, uncomplicated; M79.7 Fibromyalgia; F31.9 Bipolar disorder, unspecified
CPT/HCPCS: 36415; 74177; 80053; 81001; 83690; 84702; 85025; 93005; 99284; J1885; J2405; J7030; Q9967

== ENCOUNTER 2023-12-13 16:03 | Emergency (ER) | payer MEDICARE, OTHER ==
[~2023-12-13] VITALS: Ht 152.4 cm; Wt 72.6 kg
[~2023-12-13 16:03] MED LIST changes: +CARAFATE1 GM PO
[2023-12-13 18:27] VITALS: TEMP 98.9
[2023-12-13 18:48] LABS: BASOPHILS % 0.2 % (0.0-1.0); EOSINOPHILS # (AUTO) 0.3 (0.0-0.4); EOSINOPHILS % 2.8 % (0.0-6.0); HEMATOCRIT 34.2 % (34.2-44.1); HEMOGLOBIN 11.1 g/dL (12.0-16.0); LYMPHOCYTES # (AUTO) 2.1 (1.0-3.2); LYMPHOCYTES % 21.9 % (18.0-39.1); MEAN CORPUSCULAR HEMOGLOBIN 28.5 pg (28-32); MEAN CORPUSCULAR HGB CONC 32.5 g/dL (31-35); MEAN CORPUSCULAR VOLUME 87.7 fL (81-99); MONOCYTES # (AUTO) 0.8 (0.2-0.8); MONOCYTES % 8.7 % (4.4-11.3); NEUTROPHILS # (AUTO) 6.4 (2.1-6.9); NEUTROPHILS % 66.2 % (38.7-80.0); PLATELET COUNT 312 x10e3/uL (140-360); WHITE BLOOD COUNT 9.65 x10e3/uL (4.8-10.8)
[2023-12-13 19:07] LABS: ALBUMIN 3.9 g/dL (3.5-5.0); ALBUMIN/GLOBULIN RATIO 1.2 (0.8-2.0); ANION GAP 14.3 mmol/L (8-16); BILIRUBIN,TOTAL 0.4 mg/dL (0.2-1.2); CALCIUM 9.5 mg/dL (8.4-10.2); CREATININE, SERUM 0.73 mg/dL (0.57-1.11); POTASSIUM 4.3 mmol/L (3.5-5.1); TOTAL PROTEIN 7.1 g/dL (6.5-8.1)
[2023-12-13] MEDS: SODIUM CHLORIDE 0.9% 1000ML 1,000 ML IV ONE (19:46)
[2023-12-13] MEDS: Morphine 4mg INJECTION 4 MG/ML INJ IV ONE (19:46)
[2023-12-13] MEDS: ONDANSETRON HCL INJ 2MG/ML 2ML 2 MG/ML VIAL IV ONE (19:46)
[2023-12-13] MEDS: DICYCLOMINE HCL 20 MG/2 ML VIAL IM ONE (20:43)
[2023-12-13 23:03] VITALS: PULSE 66; RESP 16
[2023-12-13] MEDS ORDERED: DICYCLOMINE HCL20 MG PO (23:15)
[2023-12-13 23:50] VITALS: BP 117/85; PULSE 66; RESP 16; TEMP 98.9; O2SAT 100
== END 2023-12-13 23:47 | disposition home or self-care (01) ==
LOC: ER 19:00
DX: R10.11 Right upper quadrant pain (principal); R11.0 Nausea; J45.909 Unspecified asthma, uncomplicated; M79.7 Fibromyalgia; F31.9 Bipolar disorder, unspecified
CPT/HCPCS: 36415; 80053; 83690; 85025; 99283; J0500; J2270; J2405; J7030